=== PATIENT | female | born 1940 | race Caucasian/White ===

== ENCOUNTER 2020-11-08 13:08 | Outpatient (REF) | payer MEDICARE, SELFPAY ==
[2020-11-08 14:23] LABS: Hematocrit 38.9 % (37-47); Hemoglobin 12.4 g/dl (12.0-16.0); Mean Corpuscular HGB Conc 31.9 g/dl (31.0-35.0); Mean Corpuscular Hemoglobin 26.6 pg (27.0-33.0); Mean Corpuscular Volume 83.3 fL (80-98); Mean Platelet Volume 10.3 fL (9.4-12.3); Platelet Count 264 X10*3/uL (160-400); Red Blood Count 4.67 X10*6/uL (4.20-5.50); Red Cell Distribution Width 13.6 % (11.0-16.0); White Blood Count 5.7 X10*3/uL (4.8-10.8)
[2020-11-08 14:44] LABS: Alanine Aminotransferase 8 U/L (0-31); Albumin Level 4.3 g/dL (3.5-5.0); Alkaline Phosphatase 67 U/L (39-117); Anion Gap 11 (12-20); Aspartate Amino Transferase 16 U/L (5-31); Bilirubin Total 0.7 mg/dL (0.0-1.0); Blood Urea Nitrogen 18 mg/dL (9-16); Calcium 10.4 mg/dL (8.4-10.2); Carbon Dioxide 28 mmol/L (22-29); Chloride 106 mmol/L (96-108); Cholesterol 244 mg/dL; Estimated Glomerular Filt Rate > 60; Glucose Fasting 88 mg/dL (60-99); HDL Cholesterol 51 mg/dL; Iron 66 mcg/dL (30-160); LDL Cholesterol Calculated 168 mg/dl; Percent Iron Saturation 22 % (15-50); Potassium 4.2 mmol/L (3.3-5.1); Sodium 141 mmol/L (135-145); Total Iron Binding Capacity 295 mcg/dL (228-428); Total Protein 7.2 g/dL (6.5-8.0); Triglycerides 129 mg/dL; Unsaturated Iron Binding 229 ug/dL
[2020-11-08 14:47] LABS: TSH reflex Free T4 1.12 uIU/mL (0.32-4.0)
[2020-11-08 15:04] LABS: Folate 8.7 ng/mL (> or = 4.0); Vitamin B12 462 pg/mL (200-900)
== END 2020-11-08 13:09 | disposition home or self-care (01) ==
LOC: HO.HMGCLDS 13:08
PROVIDERS: PCP Internal Medicine; Visit Provider Internal Medicine
DX: E55.9 Vitamin D deficiency, unspecified (principal); E78.5 Hyperlipidemia, unspecified; I10 Essential (primary) hypertension
CPT/HCPCS: 36415; 80053; 80061; 82607; 82746; 83540; 84443; 85027

== ENCOUNTER 2021-08-07 11:04 | Outpatient (REF) | payer MEDICARE, OTHER, SELFPAY ==
[2021-08-07 13:45] LABS: Hematocrit 36.3 % (37.0-47.0); Hemoglobin 11.4 g/dl (12.0-16.0); Mean Corpuscular HGB Conc 31.4 g/dl (31.0-35.0); Mean Corpuscular Hemoglobin 26.6 pg (27.0-33.0); Mean Corpuscular Volume 84.6 fL (80.0-98.0); Mean Platelet Volume 10.2 fL (9.4-12.3); Platelet Count 254 X10*3/uL (160-400); Red Blood Count 4.29 X10*6/uL (4.20-5.50); Red Cell Distribution Width 13.7 % (11.0-16.0); White Blood Count 5.1 X10*3/uL (4.8-10.8)
[2021-08-07 14:06] LABS: Alanine Aminotransferase 8 U/L (0-31); Albumin Level 4.1 g/dL (3.5-5.0); Alkaline Phosphatase 70 U/L (39-117); Anion Gap 10 (12-20); Aspartate Amino Transferase 17 U/L (5-31); Bilirubin Total 0.7 mg/dL (0.0-1.0); Blood Urea Nitrogen 16 mg/dL (9-16); Calcium 10.3 mg/dL (8.4-10.2); Carbon Dioxide 30 mmol/L (22-29); Chloride 107 mmol/L (96-108); Estimated Glomerular Filt Rate > 60; Glucose Random 95 mg/dL (60-115); Potassium 4.1 mmol/L (3.3-5.1); Sodium 143 mmol/L (135-145); Total Protein 7.1 g/dL (6.5-8.0)
== END 2021-08-07 11:05 | disposition home or self-care (01) ==
LOC: HO.HMGCLDS 11:04
PROVIDERS: PCP Internal Medicine; Visit Provider Internal Medicine
DX: Z00.00 Encounter for general adult medical examination without abnormal findings (principal); I10 Essential (primary) hypertension; E55.9 Vitamin D deficiency, unspecified
CPT/HCPCS: 36415; 80053; 84443; 85027

== ENCOUNTER 2022-03-03 14:23 | Emergency (ER) | payer MEDICARE, OTHER, SELFPAY ==
[2022-03-03 14:28] VITALS: BP 152/67; PULSE 70; RESP 17; TEMP 36.4; O2SAT 95; BMI 21.5
--- NOTE | 2022-03-03 15:05 | ED_ITS ---
HPI - Skin/Abscess/Foreign Bdy General Chief complaint: Skin/Abscess/Foreign Body Stated complaint: Rash? Time Seen by Provider: 03/03/22 14:47 Source: patient Mode of arrival: ambulatory Limitations: no limitations History of Present Illness HPI narrative: Patient presents emergency department today for evaluation of a rash to the right lower trunk front and back. She 1st noticed it this morning it is described as painful, itchy, and a burning sensation. She took Tylenol about 1 hour prior to arrival with minimal relief. She states that overall she has been feeling well until noticing this today. She does report having varicella infection as a child, declines having received the shingles vaccine. Related Data Home Medications Medication Instructions Recorded Confirmed cholecalciferol (vitamin D3) 25 25 mcg PO DAILY 11/08/20 08/07/21 mcg (1,000 unit) capsule omeprazole 20 mg capsule,delayed 20 mg PO DAILY 11/08/20 08/07/21 release Previous Rx's Medication Instructions Recorded citalopram 10 mg tablet 10 mg PO DAILY #90 tabs 01/17/21 amlodipine 5 mg tablet 5 mg PO DAILY #90 tabs 08/07/21 memantine 10 mg tablet (Namenda) 10 mg PO QPM #90 tabs 08/07/21 lisinopril 30 mg tablet 30 mg PO DAILY #90 tabs 01/11/22 valacyclovir 1 gram tablet 1,000 mg PO TID 7 days #21 tabs 03/03/22 Allergies Allergy/AdvReac Type Severity Reaction Status Date / Time penicillin G [PENICILLIN G] Allergy Unknown ITCHING Verified 08/07/21 10:18 penicillin V Allergy Unknown itching Verified 08/07/21 10:18 smoke Allergy Unknown sick to Uncoded 08/07/21 10:18 her stomach Review of Systems Review of Systems: Constitutional: No weight loss, fever, chills, weakness or fatigue. Skin: Positive rash Cardiovascular: No chest pain, chest pressure or chest discomfort. No palpitations Respiratory: No shortness of breath, cough or sputum production. Gastrointestinal: No nausea, vomiting or diarrhea. No abdominal pain Genitourinary: No burning micturition. No urinary frequency or incontinence. Musculoskeletal: No muscle pain, back pain, joint pain or stiffness. Psychiatric: No depression or anxiety. Yes all other systems are reviewed and are negative PMFSH Past Medical History Attestation statement: The following information was validated with the patient. Source: old records reviewed Medical History Annual physical exam Anxiety Dementia GERD (gastroesophageal reflux disease) History of depression HTN (hypertension) Hyperlipidemia Near syncope Osteopenia Vitamin D deficiency Family History Family History Mother Abusive behavior Social History Social History Housing: House Patient Tobacco Use Status: Former Tobacco user e-Cigarette/Vaping Use: Never Used Advance Directives: No Advance Directives Information Provided: No Current occupational status: retired Physical Exam Vital Signs: Vital Signs: Last Vital Signs Temp 97.5 F 03/03/22 14:28 Pulse 70 03/03/22 14:28 Resp 17 03/03/22 14:28 BP 152/67 H 03/03/22 14:28 Pulse Ox 95 03/03/22 14:28 O2 Del Method 03/03/22 14:28 BMI result Body Mass Index 21.5 Appearance: Alert.?Oriented to person, place and time. No acute distress.?Normal affect. Eyes: Pupils equal, round and reactive to light.? ENT: Pharynx normal.?? Neck: Normal inspection.? Neck supple.?? CVS: Heart sounds normal. Normal heart rate and rhythm.? Pulses normal.?? Respiratory: No respiratory distress.? Lung sounds clear to auscultation bilaterally?? Abdomen: Soft and non-tender. ? Skin: Skin warm and dry.? Normal skin color.? Vesicular rash on an erythematous base to right lower torso along dermatome? T11-T12 Extremities: No lower extremity edema.? Neuro: Moves all extremities spontaneously. Sensation intact bilaterally. No motor deficits Ambulates with normal steady gait. Course Course Course Narrative: Patient is an 81-year-old female who presents emergency department for evaluation of a rash to the right lower torso extending from the right lower quadrant into the right lower back, early vesicular eruption on erythematous base following single dermatome. Most consistent with herpes zoster. Advised to avoid contact with children who have not been vaccinated for varicella, women, or mother's. Reviewed potential for post herpetic neuralgia Given a prescription for valacyclovir. Instructed on appropriate use, side effects, outpatient follow-up with her primary care provider within 1 week, advised to discuss zoster vaccination with her primary care provider, discussed worrisome signs and symptoms to return back to the emergency department for. All questions were answered, and she was discharged home in stable condition. Discharge Plan Discharge Clinical Impression: Herpes zoster Patient Disposition: Home, Self-Care Instructions: Shingles (ED) Additional Instructions: The rash that you have appears consistent with shingles, you have been given a prescription for an antiviral to take 3 times a day for 1 week. Please be sure to drink 8 glasses of water daily to prevent any headaches that may be a ssociated with this medication. You may also developed nausea or diarrhea due to the medication. If you developed the same rash on the left side of your body or notice the rash up higher or lower on the right side of your body such as on your leg or your chest/arm you should be re-evaluated. Please contact your primary care provider to arrange for a follow-up visit within 1 week. Return to the emergency department with any new or worsening symptoms or concerns Prescriptions: New valacyclovir 1 gram tablet 1,000 mg PO TID 7 Days Qty: 21 0RF No Action citalopram 10 mg tablet 10 mg PO DAILY Qty: 90 3RF lisinopril 30 mg tablet 30 mg PO DAILY Qty: 90 3RF cholecalciferol (vitamin D3) 25 mcg (1,000 unit) capsule 25 mcg PO DAILY omeprazole 20 mg capsule,delayed release(DR/EC) 20 mg PO DAILY amlodipine 5 mg tablet 5 mg PO DAILY Qty: 90 1RF memantine [Namenda] 10 mg tablet 10 mg PO QPM Qty: 90 1RF Referrals: Eliane Mccracken MD [Primary Care Provider] -
== END 2022-03-03 15:16 | disposition home or self-care (01) ==
PROVIDERS: Emergency Provider Emergency Medicine; PCP Internal Medicine
DX: B02.9 Zoster without complications (principal); I10 Essential (primary) hypertension; E78.5 Hyperlipidemia, unspecified
CPT/HCPCS: 99283

== ENCOUNTER 2022-03-06 10:44 | Outpatient (REF) | payer MEDICARE, OTHER, SELFPAY ==
[2022-03-06 14:14] LABS: MANUAL DIFF FLAG NO
[2022-03-06 14:18] LABS: Basophils Absolute Auto 0.1 X10*3/uL (0.0-0.2); Basophils Percent Auto 0.9 % (0-2); Eosinophils Absolute Auto 0.2 X10*3/uL (0.0-0.4); Hematocrit 36.8 % (37.0-47.0); Hemoglobin 11.8 g/dl (12.0-16.0); Imm Gran Abs Auto 0.02 X10*3/uL (0.00-0.03); Imm Gran Pct Auto 0.4 % (0.0-0.4); Lymphocytes Absolute Auto 1.7 X10*3/uL (1.2-4.9); Lymphocytes Percent Auto 31.5 % (20-40); Mean Corpuscular HGB Conc 32.1 g/dl (31.0-35.0); Mean Corpuscular Hemoglobin 26.7 pg (27.0-33.0); Mean Corpuscular Volume 83.3 fL (80.0-98.0); Mean Platelet Volume 10.8 fL (9.4-12.3); Monocytes Absolute Auto 0.4 X10*3/uL (0.1-1.2); Monocytes Percent Auto 8.3 % (2-11); Neutrophils Absolute Auto 2.9 x10*3/uL (2.0-8.3); Neutrophils Percent Auto 54.9 % (45-73); Platelet Count 260 X10*3/uL (160-400); Red Blood Count 4.42 X10*6/uL (4.20-5.50); White Blood Count 5.3 X10*3/uL (4.8-10.8)
[2022-03-06 14:36] LABS: Alanine Aminotransferase 8 U/L (0-31); Albumin Level 4.4 g/dL (3.5-5.0); Alkaline Phosphatase 54 U/L (39-117); Anion Gap 12 (12-20); Aspartate Amino Transferase 14 U/L (5-31); Bilirubin Total 0.9 mg/dL (0.0-1.0); Blood Urea Nitrogen 15 mg/dL (9-16); Calcium 10.6 mg/dL (8.4-10.2); Carbon Dioxide 30 mmol/L (22-29); Chloride 106 mmol/L (96-108); Estimated Glomerular Filt Rate > 60; Glucose Random 82 mg/dL (60-115); Potassium 4.7 mmol/L (3.3-5.1); Sodium 143 mmol/L (135-145); Total Protein 7.2 g/dL (6.5-8.0)
[2022-03-06 14:55] LABS: TSH reflex Free T4 2.72 uIU/mL (0.32-4.0)
[2022-03-06 15:08] LABS: Folate 8.8 ng/mL (> or = 4.0); Vitamin B12 598 pg/mL (200-900)
== END 2022-03-06 10:45 | disposition home or self-care (01) ==
LOC: HO.HMGCLDS 10:44
PROVIDERS: PCP Internal Medicine; Visit Provider Internal Medicine
DX: F03.90 Unspecified dementia, unspecified severity, without behavioral disturbance, psychotic disturbance, mood disturbance, and anxiety (principal); F41.9 Anxiety disorder, unspecified; I10 Essential (primary) hypertension; E55.9 Vitamin D deficiency, unspecified
CPT/HCPCS: 36415; 80053; 82607; 82746; 84443; 85025

== ENCOUNTER 2022-05-30 13:26 | Emergency (ER) | payer MEDICARE, OTHER, SELFPAY ==
--- NOTE | ~2022-05-30 | CT_ITS ---
EXAMINATION: CT HEAD WITHOUT CONTRAST CLINICAL INFORMATION: Altered mental status. COMPARISON: None TECHNIQUE: Contiguous axial imaging was performed from the skull base to vertex without intravenous administration of contrast. Coronal and sagittal reformatted images were obtained. This CT examination was performed using dose optimization techniques as appropriate, variously including the following: *Automated exposure control *Adjustment of mA and/or kV according to patient size (this includes techniques or standardized protocols for targeted exams where dose is matched to indication/reason for exam; i.e. extremities or head) *Use of iterative reconstruction technique DLP: 552 mGy-cm FINDINGS: There is mild widening of the cortical sulci and associated ventriculomegaly. The lateral ventricles are symmetrical. Mild periventricular microvascular changes are seen. The third and fourth ventricles are in their normal midline position. The basilar and prepontine cisterns are unremarkable. There is no acute intra or extracerebral abnormality. There is no mass effect or midline shift. Sections through the bony calvarium are unremarkable. The orbits are intact. The paranasal sinuses are clear. The mastoid air cells are clear. CT/CT head/brain wo IV con IMPRESSION: No acute intracranial pathology.
--- NOTE | 2022-05-30 13:33 | ED.GENADULT ---
HPI - General Adult General Chief complaint: Neuro Symptoms/Deficit <JAI Valencia - Last Filed: 05/30/22 17:58> Stated complaint: AMS <JAI Valencia - Last Filed: 05/30/22 17:58> Time Seen by Provider: 05/30/22 13:33 <JAI Valencia - Last Filed: 05/30/22 17:58> Source: patient and EMS <JAI Valencia - Last Filed: 05/30/22 17:58> Mode of arrival: EMS <JAI Valencia - Last Filed: 05/30/22 17:58> Limitations: altered mental status <JAI Valencia - Last Filed: 05/30/22 17:58> History of Present Illness HPI narrative: Pt is an 82 yo female assigned at presenting w/ a 2 month hx of AMS. She reports that her manager social services, Nikkie Saucedo, visited her today and instructed her to report to the emergency department. She states that her manager social services was concerned because she has had worsening confusing. She reports that she is not sure if her manager social services had any specific, new concerns today. She states that she is feeling bad, reporting that she just generally doesn't feel well. She denies any recent hx of trauma or falls. She states that she is unsure what her medical history is significant for. She reports that she lives alone in her home and gets visits from the manager social services once a month. <JAI Valencia - Last Filed: 05/30/22 17:58> Onset (ago): month(s) (2) <JAI Valencia - Last Filed: 05/30/22 17:58> Radiation: non-radiation <JAI Valencia - Last Filed: 05/30/22 17:58> Severity: mild <JAI Valencia - Last Filed: 05/30/22 17:58> Severity scale (1-10): 1 <JAI Valencia - Last Filed: 05/30/22 17:58> Relieving factors: none <JAI Valencia - Last Filed: 05/30/22 17:58> Exacerbating factors: none <JAI Valencia - Last Filed: 05/30/22 17:58> Treatments prior to arrival: none <JAI Valencia Last Filed: 05/30/22 17:58> Related Data Home medications: Home Medications Medication Instructions Recorded Confirmed amlodipine 5 mg tablet 1 tab PO DAILY 05/30/22 05/30/22 citalopram 10 mg tablet 1 tab PO DAILY 05/30/22 05/30/22 memantine 10 mg tablet 1 tab PO QPM 05/30/22 05/30/22 <JAI Valencia - Last Filed: 05/30/22 17:58> Allergies/adverse reactions: Allergies Allergy/AdvReac Type Severity Reaction Status Date / Time penicillin G [PENICILLIN G] Allergy Unknown ITCHING Verified 03/06/22 10:07 penicillin V Allergy Unknown itching Verified 03/06/22 10:07 smoke Allergy Unknown sick to Uncoded 03/06/22 10:07 her stomach <JAI Valencia Last Filed: 05/30/22 17:58> Review of Systems Review of Systems: Yes Unobtainable due to mental status (pt is confused at baseline) <JAI Valencia Last Filed: 05/30/22 17:58> Constitutional: Constitutional: Reports fever(s) (intermittently) and Reports malaise <JAI Valencia Last Filed: 05/30/22 17:58> Eyes: Eyes: Denies change in vision and Denies loss of vision <JAI Valencia Last Filed: 05/30/22 17:58> ENT: Reports Normal hearing present and Denies dizziness <JAI Valencia Last Filed: 05/30/22 17:58> Cardiovascular: Cardiovascular: Reports chest pain (intermittently), Denies leg edema and Denies lightheadedness <JAI Valencia Last Filed: 05/30/22 17:58> Respiratory: Respiratory: Reports cough (intermittent) <JAI Valencia Last Filed: 05/30/22 17:58> Gastrointestinal: Gastrointestinal: Reports abdominal pain (intermittent) <JAI Valencia Last Filed: 05/30/22 17:58> Genitourinary: Genitourinary: Reports difficulty voiding (occasional burning on urination) <JAI Valencia Last Filed: 05/30/22 17:58> Musculoskeletal: Musculoskeletal: Reports no additional musculoskeletal complaints <JAI Valencia - Last Filed: 05/30/22 17:58> Neurologic: Reports Normal hearing present, Reports Abnormal speech present, Reports confusion (per her baseline), Denies dizziness and Denies loss of vision <JAI Valencia - Last Filed: 05/30/22 17:58> Psychiatric: Psychiatric: Reports anxiety and Reports confusion (per her baseline) <JAI Valencia - Last Filed: 05/30/22 17:58> [facility], [facility] Past Medical History Attestation statement: The following information was validated with the patient. <JAI Valencia - Last Filed: 05/30/22 17:58> Medical History: Medical History Annual physical exam Anxiety Dementia GERD (gastroesophageal reflux disease) History of depression HTN (hypertension) Hyperlipidemia Near syncope Osteopenia Vitamin D deficiency <JAI Valencia - Last Filed: 05/30/22 17:58> Family History Family History: Family History Mother Abusive behavior <JAI Valencia - Last Filed: 05/30/22 17:58> Social History Social History: Social History Housing: House Alcohol intake: unknown Patient Tobacco Use Status: Former Tobacco user Smoked in Last 30 Days: No e-Cigarette/Vaping Use: Never Used Use of substances other than those prescribed or required for medical reasons: Unknown Advance Directives: No Current occupational status: retired Cognitive needs: No Hearing needs: No Vision needs: Yes <JAI Valencia - Last Filed: 05/30/22 17:58> Physical Exam ED Vital Signs: Vital Signs - 24 hr 06/09/22 20:17 06/10/22 05:11 Temperature 98.1 F 98.0 F Pulse Rate 67 75 Respiratory Rate 18 15 Blood Pressure 118/50 L 140/79 H Pulse Oximetry 99 99 Oxygen Delivery Method Room Air Room Air BMI result Body Mass Index 23.5 <JAI Valencia - Last Filed: 05/30/22 17:58> Vital Signs - 24 hr 06/09/22 20:17 06/10/22 05:11 Temperature 98.1 F 98.0 F Pulse Rate 67 75 Respiratory Rate 18 15 Blood Pressure 118/50 L 140/79 H Pulse Oximetry 99 99 Oxygen Delivery Method Room Air Room Air BMI result Body Mass Index 23.5 <Jorge Luis Ahn MD - Last Filed: 06/04/22 09:43> Vital Signs - 24 hr 06/09/22 20:17 06/10/22 05:11 Temperature 98.1 F 98.0 F Pulse Rate 67 75 Respiratory Rate 18 15 Blood Pressure 118/50 L 140/79 H Pulse Oximetry 99 99 Oxygen Delivery Method Room Air Room Air BMI result Body Mass Index 23.5 <Vikram Oshea MD - Last Filed: 06/01/22 16:48> Vital Signs - 24 hr 06/09/22 20:17 06/10/22 05:11 Temperature 98.1 F 98.0 F Pulse Rate 67 75 Respiratory Rate 18 15 Blood Pressure 118/50 L 140/79 H Pulse Oximetry 99 99 Oxygen Delivery Method Room Air Room Air BMI result Body Mass Index 23.5 <Yaihr Neely MD - Last Filed: 06/03/22 16:05> Vital Signs - 24 hr 06/09/22 20:17 06/10/22 05:11 Temperature 98.1 F 98.0 F Pulse Rate 67 75 Respiratory Rate 18 15 Blood Pressure 118/50 L 140/79 H Pulse Oximetry 99 99 Oxygen Delivery Method Room Air Room Air BMI result Body Mass Index 23.5 <Logan John MD - Last Filed: 06/05/22 10:21> Vital Signs - 24 hr 06/09/22 20:17 06/10/22 05:11 Temperature 98.1 F 98.0 F Pulse Rate 67 75 Respiratory Rate 18 15 Blood Pressure 118/50 L 140/79 H Pulse Oximetry 99 99 Oxygen Delivery Method Room Air Room Air BMI result Body Mass Index 23.5 <Naveed Hughes DO - Last Filed: 06/06/22 10:20> Const General: cooperative, healthy appearing and confusion (per her baseline) <JAI Valencia - Last Filed: 05/30/22 17:58> Nutritional Appearance: well nourished <JAI Valencia - Last Filed: 05/30/22 17:58> Orientation/consciousness: oriented to person, oriented to place and confusion (per her baseline) <Pham Sanderson SD - Last Filed: 05/30/22 17:58> Limitations: altered mental status <Pham Sanderson SD - Last Filed: 05/30/22 17:58> HENMT Head: Yes normal to inspection, Yes normocephalic and Yes atraumatic <Pham Sanderson SD - Last Filed: 05/30/22 17:58> Ears: hearing grossly normal bilaterally <Pham Sanderson SD - Last Filed: 05/30/22 17:58> General nose exam: Normal external nose present <Pham Calhounjeremi [facility] Last Filed: 05/30/22 17:58> Mouth: Normal oral and palatal mucosa present <Pham Sanderson SD - Last Filed: 05/30/22 17:58> Throat: Yes posterior oropharynx normal <Pham Calhounjeremi SD - Last Filed: 05/30/22 17:58> Eyes General: appearance normal, both eyes and all related structures <Pham Sanderson SD - Last Filed: 05/30/22 17:58> Conjunctivae: conjunctivae normal <Pham Calhounjeremi SD - Last Filed: 05/30/22 17:58> Pupils: Equal, round and reactive pupils present <Pham Sanderson SD - Last Filed: 05/30/22 17:58> EOM: EOMs intact bilaterally <Pham Calhounjeremi SD - Last Filed: 05/30/22 17:58> Neck Neck: Yes normal visual inspection <Pham Calhounjeremi [facility] Last Filed: 05/30/22 17:58> Thyroid: Thyroid normal <Pham Calhounjeremi [facility] Last Filed: 05/30/22 17:58> Lymphatic: no lymphadenopathy noted <Pham Calhounjeremi SD - Last Filed: 05/30/22 17:58> Chest Chest palpation & inspection: normal inspection of the chest <Pham Calhounjeremi [facility] Last Filed: 05/30/22 17:58> Resp Effort & Inspection: normal respiratory effort and able to speak in complete sentences <Pham Maria E SD - Last Filed: 05/30/22 17:58> Auscultation: clear to auscultation bilaterally <Pham Sanderson SD - Last Filed: 05/30/22 17:58> Cardio Jugular venous distension: no JVD <Pham Sanderson SD - Last Filed: 05/30/22 17:58> Rate: regular rate <Pham Sanderson SD - Last Filed: 05/30/22 17:58> Rhythm: regular rhythm <Pham Sanderson SD - Last Filed: 05/30/22 17:58> Heart sounds: S1 normal heart sound present and S2 normal heart sound present <Pham Sanderson SD - Last Filed: 05/30/22 17:58> Peripheral pulses: Peripheral pulses 2+ throughout <Pham Sanderson SD - Last Filed: 05/30/22 17:58> GI Inspection: Yes normal to inspection <Pham Sanderson SD - Last Filed: 05/30/22 17:58> Palpation (GI): Soft to palpation, not firm, nontender, no guarding and not rigid <Pham Sanderson SD - Last Filed: 05/30/22 17:58> Skin Lesions: lesion noted (multiple, erythematous papules spread across bilat upper extremities) <Pham Sanderson SD - Last Filed: 05/30/22 17:58> Neuro General: oriented to person, oriented to place and confusion (per her baseline) <Pham Sanderson SD - Last Filed: 05/30/22 17:58> Cranial nerves: Yes Equal, round and reactive pupils present and Yes Normal hearing present <Pham SandersonJAI - Last Filed: 05/30/22 17:58> Speech: Abnormal speech present <Pham Sanderson SD - Last Filed: 05/30/22 17:58> Motor exam (neuro): 5/5 motor strength present throughout <Pham Sanderson SD - Last Filed: 05/30/22 17:58> Psych Appearance: disheveled <Pham SandersonJAI - Last Filed: 05/30/22 17:58> Mental Status: mental status grossly normal <Pham SandersonJAI - Last Filed: 05/30/22 17:58> Speech and movement: Normal speech and movement present <Pham CalhounJAI blood - Last Filed: 05/30/22 17:58> Affect: normal affect <JAI Valencia - Last Filed: 05/30/22 17:58> Attitude: cooperative <JAI Valencia - Last Filed: 05/30/22 17:58> Thought process: Normal thought process present <JAI Valencia - Last Filed: 05/30/22 17:58> Course Course Course Narrative: PATIENT REMAINED STABLE ON SHE IS HERE FOR CASE MANAGEMENT, NO NEW COMPLAINT, PHYSICIAN OBSERVATION CONTINUE <oLgan John MD - Last Filed: 06/05/22 10:21> PATIENT REMAINED STABLE ON SHE IS HERE FOR CASE MANAGEMENT, NO NEW COMPLAINT, PHYSICIAN OBSERVATION CONTINUE 06/06/22 1019 Patient remains case managment stable will continue physician observation <Naveed Hughes DO - Last Filed: 06/06/22 10:20> Reevaluation(s) Reevaluation #1: Physician observation for safety, case management involved as is physical therapy, Uneventful night will continue to monitor for safety. <Jorge Luis Ahn MD - Last Filed: 06/04/22 09:43> Time: 07:19 <Jorge Luis Ahn MD - Last Filed: 06/04/22 09:43> Reevaluation #2: Physician observation continued: There were no reported incidents on this patient overnight by the nursing staff. Patient has been evaluated by case management and physical therapy.. Patient will be kept in emergency department [facility] until disposition can be determined. <Vikram Oshea MD - Last Filed: 06/01/22 16:48> Time: 16:47 <Vikram Oshea MD - Last Filed: 06/01/22 16:48> Reevaluation #3: No events overnight reported by the nurse, stable vital signs, waiting for manager social services evaluation and disposition, continue with physician observation. <Yahir Neely MD - Last Filed: 06/03/22 16:05> Time: 08:14 <Yahir Neely MD - Last Filed: 06/03/22 16:05> Medications Administered Generic Name Dose Route Start Last Admin Trade Name Freq PRN Reason Stop Dose Admin Amlodipine Besylate 5 mg 05/31/22 09:00 06/10/22 08:13 Amlodipine Besylate 5 Mg Tablet PO 5 mg DAILY EN Administration Protocol Escitalopram Oxalate 5 mg 05/31/22 09:00 06/10/22 08:13 Escitalopram Oxalate 5 Mg Tablet PO 5 mg DAILY EN Administration Memantine 10 mg 05/31/22 21:00 06/09/22 20:06 Memantine Hcl 10 Mg Tablet PO 10 mg BEDTIME EN Administration <JAI Valencia - Last Filed: 05/30/22 17:58> Medications Administered Generic Name Dose Route Start Last Admin Trade Name Freq PRN Reason Stop Dose Admin Amlodipine Besylate 5 mg 05/31/22 09:00 06/10/22 08:13 Amlodipine Besylate 5 Mg Tablet PO 5 mg DAILY EN Administration Protocol Escitalopram Oxalate 5 mg 05/31/22 09:00 06/10/22 08:13 Escitalopram Oxalate 5 Mg Tablet PO 5 mg DAILY EN Administration Memantine 10 mg 05/31/22 21:00 06/09/22 20:06 Memantine Hcl 10 Mg Tablet PO 10 mg BEDTIME EN Administration <Jorge Luis Ahn MD - Last Filed: 06/04/22 09:43> Medications Administered Generic Name Dose Route Start Last Admin Trade Name Freq PRN Reason Stop Dose Admin Amlodipine Besylate 5 mg 05/31/22 09:00 06/10/22 08:13 Amlodipine Besylate 5 Mg Tablet PO 5 mg DAILY EN Administration Protocol Escitalopram Oxalate 5 mg 05/31/22 09:00 06/10/22 08:13 Escitalopram Oxalate 5 Mg Tablet PO 5 mg DAILY EN Administration Memantine 10 mg 05/31/22 21:00 06/09/22 20:06 Memantine Hcl 10 Mg Tablet PO 10 mg BEDTIME EN Administration <Vikram Oshea MD - Last Filed: 06/01/22 16:48> Medications Administered Generic Name Dose Route Start Last Admin Trade Name Freq PRN Reason Stop Dose Admin Amlodipine Besylate 5 mg 05/31/22 09:00 06/10/22 08:13 Amlodipine Besylate 5 Mg Tablet PO 5 mg DAILY EN Administration Protocol Escitalopram Oxalate 5 mg 05/31/22 09:00 06/10/22 08:13 Escitalopram Oxalate 5 Mg Tablet PO 5 mg DAILY EN Administration Memantine 10 mg 05/31/22 21:00 06/09/22 20:06 Memantine Hcl 10 Mg Tablet PO 10 mg BEDTIME EN Administration <Yahir Neely MD - Last Filed: 06/03/22 16:05> Medications Administered Generic Name Dose Route Start Last Admin Trade Name Freq PRN Reason Stop Dose Admin Amlodipine Besylate 5 mg 05/31/22 09:00 06/10/22 08:13 Amlodipine Besylate 5 Mg Tablet PO 5 mg DAILY EN Administration Protocol Escitalopram Oxalate 5 mg 05/31/22 09:00 06/10/22 08:13 Escitalopram Oxalate 5 Mg Tablet PO 5 mg DAILY EN Administration Memantine 10 mg 05/31/22 21:00 06/09/22 20:06 Memantine Hcl 10 Mg Tablet PO 10 mg BEDTIME EN Administration <Logna John MD - Last Filed: 06/05/22 10:21> Medications Administered Generic Name Dose Route Start Last Admin Trade Name Freq PRN Reason Stop Dose Admin Amlodipine Besylate 5 mg 05/31/22 09:00 06/10/22 08:13 Amlodipine Besylate 5 Mg Tablet PO 5 mg DAILY EN Administration Protocol Escitalopram Oxalate 5 mg 05/31/22 09:00 06/10/22 08:13 Escitalopram Oxalate 5 Mg Tablet PO 5 mg DAILY EN Administration Memantine 10 mg 05/31/22 21:00 06/09/22 20:06 Memantine Hcl 10 Mg Tablet PO 10 mg BEDTIME EN Administration <Naveed Hughes DO - Last Filed: 06/06/22 10:20> Medical Decision Making MDM Narrative Medical decision making narrative: Patient is an 82 year old assigned female at with a history of dementia presenting to the emergency department today with worsening confusion. Patient's physical exam showed a pleasantly confused individual with multiple small bites concerning for bed bug infestation. Patient's blood work was unremarkable. Patient's urine is pending. Patient's EKG was unremarkable. Patient's head CT showed no acute process. Case management tracked down the patient's manager social services who turned out to only be a friend and not her manager social services. She expressed concern about the patient living alone as her dementia is advancing and she is partaking in dangerous behavior such as driving and leaving the stove on. Patient to be managed by case management for possible placement. <JAI Valencia - Last Filed: 05/30/22 17:58> Medical Records Medical records reviewed: Yes I reviewed the patient's medical records. <JAI Valencia Last Filed: 05/30/22 17:58> Lab Data Lab results reviewed: Yes I reviewed the patient's lab results. <JAI Valencia - Last Filed: 05/30/22 17:58> Result diagrams: : 05/30/22 14:22 05/30/22 14:22 <JAI Valencia - Last Filed: 05/30/22 17:58> Labs: Lab Results 05/30/22 05/30/22 05/30/22 Range/Units 14:22 14:22 14:22 WBC 7.9 (4.8-10.8) X10*3/uL RBC 4.36 (4.20-5.50) X10*6/uL Hgb 11.6 L (12.0-16.0) g/dl Hct 36.0 L (37.0-47.0) % MCV 82.6 (80.0-98.0) fL MCH 26.6 L (27.0-33.0) pg MCHC 32.2 (31.0-35.0) g/dl RDW 13.3 (11.0-16.0) % Plt Count 249 (160-400) X10*3/uL MPV 9.7 (9.4-12.3) fL Immature Gran % (Auto) 0.4 (0.0-0.4) % Neut % (Auto) 62.2 (45-73) % Lymph % (Auto) 25.7 (20-40) % [place] % (Auto) 6.9 (2-11) % Eos % (Auto) 3.9 (0-4) % Baso % (Auto) 0.9 (0-2) % Lymph # (Auto) 2.0 (1.2-4.9) X10*3/uL [place] # (Auto) 0.5 (0.1-1.2) X10*3/uL Eos # (Auto) 0.3 (0.0-0.4) X10*3/uL Baso # (Auto) 0.1 (0.0-0.2) X10*3/uL Abs Immat Gran (auto) 0.03 (0.00-0.03) X10*3/uL Absolute Neuts (auto) 4.9 (2.0-8.3) x10*3/uL Absolute Nucleated RBC 0.000 (0.0-0.012) X10*3/uL Nucleated RBC % (auto) 0.0 (0.0-0.2) /100WBC Sodium 143 (135-145) mmol/L Potassium 4.1 (3.3-5.1) mmol/L Chloride 106 (96-108) mmol/L Carbon Dioxide 27 (22-29) mmol/L Anion Gap 14 (12-20) BUN 16 (9-16) mg/dL Creatinine 0.91 (0.5-1.4) mg/dL Estim Creat Clear Calc 39.4 Estimated GFR 59 Random Glucose 95 (60-115) mg/dL Calcium 10.4 H (8.4-10.2) mg/dL Total Bilirubin 0.7 (0.0-1.0) mg/dL AST 18 (5-31) U/L ALT 11 (0-31) U/L Alkaline Phosphatase 89 D (39-117) U/L Ammonia 21 (13-55) umol/L Total Protein 7.0 (6.5-8.0) g/dL Albumin 4.2 (3.5-5.0) g/dL 1,25 Dihydroxy Vit D (18-72) pg/mL 1,25 Dihydroxy Vit D2 pg/mL 1,25 Dihydroxy Vit D3 pg/mL PTH Intact (16-77) pg/mL Calcium (PTH Intact) (8.6-10.4) mg/dL Urine Color Urine Appearance Urine pH (5.0-9.0) Ur Specific [place] (1.005-1.025) Urine Protein (Neg-Trace) mg/dL Urine Glucose (UA) (Negative) mg/dL Urine Ketones (Negative) mg/dL Urine Blood (Negative) Urine Nitrite (Negative) Ur Leukocyte Esterase (Negative) Urine RBC (0-2) /HPF Urine WBC (0-5) /HPF Ur Squamous Epith Cells (0-2) /HPF Urine Bacteria (None Seen) Hyaline Casts (0-2) /LPF Urine Opiates Screen (Not Detect) Urine Fentanyl Screen (Not Detect) Ur Barbiturates Screen (Not Detect) Ur Phencyclidine Scrn (Not Detect) Ur Amphetamines Screen (Not Detect) U Benzodiazepines Scrn (Not Detect) Urine Cocaine Screen (Not Detect) U Marijuana (THC) Screen (Not Detect) Influenza Type A (PCR) (Negative) Influenza Type B (PCR) (Negative) RSV RNA Qual (PCR) (Negative) SARS-CoV-2 RNA (RT-PCR) (Negative) 05/30/22 05/31/22 05/31/22 Range/Units 15:36 07:13 07:13 WBC (4.8-10.8) X10*3/uL RBC (4.20-5.50) X10*6/uL Hgb (12.0-16.0) g/dl Hct (37.0-47.0) % MCV (80.0-98.0) fL MCH (27.0-33.0) pg MCHC (31.0-35.0) g/dl RDW (11.0-16.0) % Plt Count (160-400) X10*3/uL MPV (9.4-12.3) fL Immature Gran % (Auto) (0.0-0.4) % Neut % (Auto) (45-73) % Lymph % (Auto) (20-40) % [place] % (Auto) (2-11) % Eos % (Auto) (0-4) % Baso % (Auto) (0-2) % Lymph # (Auto) (1.2-4.9) X10*3/uL [place] # (Auto) (0.1-1.2) X10*3/uL Eos # (Auto) (0.0-0.4) X10*3/uL Baso # (Auto) (0.0-0.2) X10*3/uL Abs Immat Gran (auto) (0.00-0.03) X10*3/uL Absolute Neuts (auto) (2.0-8.3) x10*3/uL Absolute Nucleated RBC (0.0-0.012) X10*3/uL Nucleated RBC % (auto) (0.0-0.2) /100WBC Sodium (135-145) mmol/L Potassium (3.3-5.1) mmol/L Chloride (96-108) mmol/L Carbon Dioxide (22-29) mmol/L Anion Gap (12-20) BUN (9-16) mg/dL Creatinine (0.5-1.4) mg/dL Estim Creat Clear Calc Estimated GFR Random Glucose (60-115) mg/dL Calcium (8.4-10.2) mg/dL Total Bilirubin (0.0-1.0) mg/dL AST (5-31) U/L ALT (0-31) U/L Alkaline Phosphatase (39-117) U/L Ammonia (13-55) umol/L Total Protein (6.5-8.0) g/dL Albumin (3.5-5.0) g/dL 1,25 Dihydroxy Vit D (18-72) pg/mL 1,25 Dihydroxy Vit D2 pg/mL 1,25 Dihydroxy Vit D3 pg/mL PTH Intact (16-77) pg/mL Calcium (PTH Intact) (8.6-10.4) mg/dL Urine Color Yellow Urine Appearance Clear Urine pH 5.5 (5.0-9.0) Ur Specific [place] 1.025 (1.005-1.025) Urine Protein Negative (Neg-Trace) mg/dL Urine Glucose (UA) Negative (Negative) mg/dL Urine Ketones Trace (Negative) mg/dL Urine Blood Negative (Negative) Urine Nitrite Negative (Negative) Ur Leukocyte Esterase Trace H (Negative) Urine RBC 3-5 H (0-2) /HPF Urine WBC 0-5 (0-5) /HPF Ur Squamous Epith Cells 0-2 (0-2) /HPF Urine Bacteria 1+ (None Seen) Hyaline Casts 0-2 (0-2) /LPF Urine Opiates Screen Not Detected (Not Detect) Urine Fentanyl Screen Not Detected (Not Detect) Ur Barbiturates Screen Not Detected (Not Detect) Ur Phencyclidine Scrn Not Detected (Not Detect) Ur Amphetamines Screen Not Detected (Not Detect) U Benzodiazepines Scrn Not Detected (Not Detect) Urine Cocaine Screen Not Detected (Not Detect) U Marijuana (THC) Screen Not Detected (Not Detect) Influenza Type A (PCR) NEGATIVE (Negative) Influenza Type B (PCR) NEGATIVE (Negative) RSV RNA Qual (PCR) NEGATIVE (Negative) SARS-CoV-2 RNA (RT-PCR) NEGATIVE (Negative) 05/31/22 05/31/22 Range/Units 13:10 13:10 WBC (4.8-10.8) X10*3/uL RBC (4.20-5.50) X10*6/uL Hgb (12.0-16.0) g/dl Hct (37.0-47.0) % MCV (80.0-98.0) fL MCH (27.0-33.0) pg MCHC (31.0-35.0) g/dl RDW (11.0-16.0) % Plt Count (160-400) X10*3/uL MPV (9.4-12.3) fL Immature Gran % (Auto) (0.0-0.4) % Neut % (Auto) (45-73) % Lymph % (Auto) (20-40) % [place] % (Auto) (2-11) % Eos % (Auto) (0-4) % Baso % (Auto) (0-2) % Lymph # (Auto) (1.2-4.9) X10*3/uL [place] # (Auto) (0.1-1.2) X10*3/uL Eos # (Auto) (0.0-0.4) X10*3/uL Baso # (Auto) (0.0-0.2) X10*3/uL Abs Immat Gran (auto) (0.00-0.03) X10*3/uL Absolute Neuts (auto) (2.0-8.3) x10*3/uL Absolute Nucleated RBC (0.0-0.012) X10*3/uL Nucleated RBC % (auto) (0.0-0.2) /100WBC Sodium (135-145) mmol/L Potassium (3.3-5.1) mmol/L Chloride (96-108) mmol/L Carbon Dioxide (22-29) mmol/L Anion Gap (12-20) BUN (9-16) mg/dL Creatinine (0.5-1.4) mg/dL Estim Creat Clear Calc Estimated GFR Random Glucose (60-115) mg/dL Calcium (8.4-10.2) mg/dL Total Bilirubin (0.0-1.0) mg/dL AST (5-31) U/L ALT (0-31) U/L Alkaline Phosphatase (39-117) U/L Ammonia (13-55) umol/L Total Protein (6.5-8.0) g/dL Albumin (3.5-5.0) g/dL 1,25 Dihydroxy Vit D 70 (18-72) pg/mL 1,25 Dihydroxy Vit D2 <8 pg/mL 1,25 Dihydroxy Vit D3 70 pg/mL PTH Intact 87 H (16-77) pg/mL Calcium (PTH Intact) 10.6 H (8.6-10.4) mg/dL Urine Color Urine Appearance Urine pH (5.0-9.0) Ur Specific [place] (1.005-1.025) Urine Protein (Neg-Trace) mg/dL Urine Glucose (UA) (Negative) mg/dL Urine Ketones (Negative) mg/dL Urine Blood (Negative) Urine Nitrite (Negative) Ur Leukocyte Esterase (Negative) Urine RBC (0-2) /HPF Urine WBC (0-5) /HPF Ur Squamous Epith Cells (0-2) /HPF Urine Bacteria (None Seen) Hyaline Casts (0-2) /LPF Urine Opiates Screen (Not Detect) Urine Fentanyl Screen (Not Detect) Ur Barbiturates Screen (Not Detect) Ur Phencyclidine Scrn (Not Detect) Ur Amphetamines Screen (Not Detect) U Benzodiazepines Scrn (Not Detect) Urine Cocaine Screen (Not Detect) U Marijuana (THC) Screen (Not Detect) Influenza Type A (PCR) (Negative) Influenza Type B (PCR) (Negative) RSV RNA Qual (PCR) (Negative) SARS-CoV-2 RNA (RT-PCR) (Negative) <JAI Valencia - Last Filed: 05/30/22 17:58> Lab Results 05/30/22 05/30/22 05/30/22 Range/Units 14:22 14:22 14:22 WBC 7.9 (4.8-10.8) X10*3/uL RBC 4.36 (4.20-5.50) X10*6/uL Hgb 11.6 L (12.0-16.0) g/dl Hct 36.0 L (37.0-47.0) % MCV 82.6 (80.0-98.0) fL MCH 26.6 L (27.0-33.0) pg MCHC 32.2 (31.0-35.0) g/dl RDW 13.3 (11.0-16.0) % Plt Count 249 (160-400) X10*3/uL MPV 9.7 (9.4-12.3) fL Immature Gran % (Auto) 0.4 (0.0-0.4) % Neut % (Auto) 62.2 (45-73) % Lymph % (Auto) 25.7 (20-40) % [place] % (Auto) 6.9 (2-11) % Eos % (Auto) 3.9 (0-4) % Baso % (Auto) 0.9 (0-2) % Lymph # (Auto) 2.0 (1.2-4.9) X10*3/uL [place] # (Auto) 0.5 (0.1-1.2) X10*3/uL Eos # (Auto) 0.3 (0.0-0.4) X10*3/uL Baso # (Auto) 0.1 (0.0-0.2) X10*3/uL Abs Immat Gran (auto) 0.03 (0.00-0.03) X10*3/uL Absolute Neuts (auto) 4.9 (2.0-8.3) x10*3/uL Absolute Nucleated RBC 0.000 (0.0-0.012) X10*3/uL Nucleated RBC % (auto) 0.0 (0.0-0.2) /100WBC Sodium 143 (135-145) mmol/L Potassium 4.1 (3.3-5.1) mmol/L Chloride 106 (96-108) mmol/L Carbon Dioxide 27 (22-29) mmol/L Anion Gap 14 (12-20) BUN 16 (9-16) mg/dL Creatinine 0.91 (0.5-1.4) mg/dL Estim Creat Clear Calc 39.4 Estimated GFR 59 Random Glucose 95 (60-115) mg/dL Calcium 10.4 H (8.4-10.2) mg/dL Total Bilirubin 0.7 (0.0-1.0) mg/dL AST 18 (5-31) U/L ALT 11 (0-31) U/L Alkaline Phosphatase 89 D (39-117) U/L Ammonia 21 (13-55) umol/L Total Protein 7.0 (6.5-8.0) g/dL Albumin 4.2 (3.5-5.0) g/dL 1,25 Dihydroxy Vit D (18-72) pg/mL 1,25 Dihydroxy Vit D2 pg/mL 1,25 Dihydroxy Vit D3 pg/mL PTH Intact (16-77) pg/mL Calcium (PTH Intact) (8.6-10.4) mg/dL Urine Color Urine Appearance Urine pH (5.0-9.0) Ur Specific [place] (1.005-1.025) Urine Protein (Neg-Trace) mg/dL Urine Glucose (UA) (Negative) mg/dL Urine Ketones (Negative) mg/dL Urine Blood (Negative) Urine Nitrite (Negative) Ur Leukocyte Esterase (Negative) Urine RBC (0-2) /HPF Urine WBC (0-5) /HPF Ur Squamous Epith Cells (0-2) /HPF Urine Bacteria (None Seen) Hyaline Casts (0-2) /LPF Urine Opiates Screen (Not Detect) Urine Fentanyl Screen (Not Detect) Ur Barbiturates Screen (Not Detect) Ur Phencyclidine Scrn (Not Detect) Ur Amphetamines Screen (Not Detect) U Benzodiazepines Scrn (Not Detect) Urine Cocaine Screen (Not Detect) U Marijuana (THC) Screen (Not Detect) Influenza Type A (PCR) (Negative) Influenza Type B (PCR) (Negative) RSV RNA Qual (PCR) (Negative) SARS-CoV-2 RNA (RT-PCR) (Negative) 05/30/22 05/31/22 05/31/22 Range/Units 15:36 07:13 07:13 WBC (4.8-10.8) X10*3/uL RBC (4.20-5.50) X10*6/uL Hgb (12.0-16.0) g/dl Hct (37.0-47.0) % MCV (80.0-98.0) fL MCH (27.0-33.0) pg MCHC (31.0-35.0) g/dl RDW (11.0-16.0) % Plt Count (160-400) X10*3/uL MPV (9.4-12.3) fL Immature Gran % (Auto) (0.0-0.4) % Neut % (Auto) (45-73) % Lymph % (Auto) (20-40) % [place] % (Auto) (2-11) % Eos % (Auto) (0-4) % Baso % (Auto) (0-2) % Lymph # (Auto) (1.2-4.9) X10*3/uL [place] # (Auto) (0.1-1.2) X10*3/uL Eos # (Auto) (0.0-0.4) X10*3/uL Baso # (Auto) (0.0-0.2) X10*3/uL Abs Immat Gran (auto) (0.00-0.03) X10*3/uL Absolute Neuts (auto) (2.0-8.3) x10*3/uL Absolute Nucleated RBC (0.0-0.012) X10*3/uL Nucleated RBC % (auto) (0.0-0.2) /100WBC Sodium (135-145) mmol/L Potassium (3.3-5.1) mmol/L Chloride (96-108) mmol/L Carbon Dioxide (22-29) mmol/L Anion Gap (12-20) BUN (9-16) mg/dL Creatinine (0.5-1.4) mg/dL Estim Creat Clear Calc Estimated GFR Random Glucose (60-115) mg/dL Calcium (8.4-10.2) mg/dL Total Bilirubin (0.0-1.0) mg/dL AST (5-31) U/L ALT (0-31) U/L Alkaline Phosphatase (39-117) U/L Ammonia (13-55) umol/L Total Protein (6.5-8.0) g/dL Albumin (3.5-5.0) g/dL 1,25 Dihydroxy Vit D (18-72) pg/mL 1,25 Dihydroxy Vit D2 pg/mL 1,25 Dihydroxy Vit D3 pg/mL PTH Intact (16-77) pg/mL Calcium (PTH Intact) (8.6-10.4) mg/dL Urine Color Yellow Urine Appearance Clear Urine pH 5.5 (5.0-9.0) Ur Specific [place] 1.025 (1.005-1.025) Urine Protein Negative (Neg-Trace) mg/dL Urine Glucose (UA) Negative (Negative) mg/dL Urine Ketones Trace (Negative) mg/dL Urine Blood Negative (Negative) Urine Nitrite Negative (Negative) Ur Leukocyte Esterase Trace H (Negative) Urine RBC 3-5 H (0-2) /HPF Urine WBC 0-5 (0-5) /HPF Ur Squamous Epith Cells 0-2 (0-2) /HPF Urine Bacteria 1+ (None Seen) Hyaline Casts 0-2 (0-2) /LPF Urine Opiates Screen Not Detected (Not Detect) Urine Fentanyl Screen Not Detected (Not Detect) Ur Barbiturates Screen Not Detected (Not Detect) Ur Phencyclidine Scrn Not Detected (Not Detect) Ur Amphetamines Screen Not Detected (Not Detect) U Benzodiazepines Scrn Not Detected (Not Detect) Urine Cocaine Screen Not Detected (Not Detect) U Marijuana (THC) Screen Not Detected (Not Detect) Influenza Type A (PCR) NEGATIVE (Negative) Influenza Type B (PCR) NEGATIVE (Negative) RSV RNA Qual (PCR) NEGATIVE (Negative) SARS-CoV-2 RNA (RT-PCR) NEGATIVE (Negative) 05/31/22 05/31/22 Range/Units 13:10 13:10 WBC (4.8-10.8) X10*3/uL RBC (4.20-5.50) X10*6/uL Hgb (12.0-16.0) g/dl Hct (37.0-47.0) % MCV (80.0-98.0) fL MCH (27.0-33.0) pg MCHC (31.0-35.0) g/dl RDW (11.0-16.0) % Plt Count (160-400) X10*3/uL MPV (9.4-12.3) fL Immature Gran % (Auto) (0.0-0.4) % Neut % (Auto) (45-73) % Lymph % (Auto) (20-40) % [place] % (Auto) (2-11) % Eos % (Auto) (0-4) % Baso % (Auto) (0-2) % Lymph # (Auto) (1.2-4.9) X10*3/uL [place] # (Auto) (0.1-1.2) X10*3/uL Eos # (Auto) (0.0-0.4) X10*3/uL Baso # (Auto) (0.0-0.2) X10*3/uL Abs Immat Gran (auto) (0.00-0.03) X10*3/uL Absolute Neuts (auto) (2.0-8.3) x10*3/uL Absolute Nucleated RBC (0.0-0.012) X10*3/uL Nucleated RBC % (auto) (0.0-0.2) /100WBC Sodium (135-145) mmol/L Potassium (3.3-5.1) mmol/L Chloride (96-108) mmol/L Carbon Dioxide (22-29) mmol/L Anion Gap (12-20) BUN (9-16) mg/dL Creatinine (0.5-1.4) mg/dL Estim Creat Clear Calc Estimated GFR Random Glucose (60-115) mg/dL Calcium (8.4-10.2) mg/dL Total Bilirubin (0.0-1.0) mg/dL AST (5-31) U/L ALT (0-31) U/L Alkaline Phosphatase (39-117) U/L Ammonia (13-55) umol/L Total Protein (6.5-8.0) g/dL Albumin (3.5-5.0) g/dL 1,25 Dihydroxy Vit D 70 (18-72) pg/mL 1,25 Dihydroxy Vit D2 <8 pg/mL 1,25 Dihydroxy Vit D3 70 pg/mL PTH Intact 87 H (16-77) pg/mL Calcium (PTH Intact) 10.6 H (8.6-10.4) mg/dL Urine Color Urine Appearance Urine pH (5.0-9.0) Ur Specific [place] (1.005-1.025) Urine Protein (Neg-Trace) mg/dL Urine Glucose (UA) (Negative) mg/dL Urine Ketones (Negative) mg/dL Urine Blood (Negative) Urine Nitrite (Negative) Ur Leukocyte Esterase (Negative) Urine RBC (0-2) /HPF Urine WBC (0-5) /HPF Ur Squamous Epith Cells (0-2) /HPF Urine Bacteria (None Seen) Hyaline Casts (0-2) /LPF Urine Opiates Screen (Not Detect) Urine Fentanyl Screen (Not Detect) Ur Barbiturates Screen (Not Detect) Ur Phencyclidine Scrn (Not Detect) Ur Amphetamines Screen (Not Detect) U Benzodiazepines Scrn (Not Detect) Urine Cocaine Screen (Not Detect) U Marijuana (THC) Screen (Not Detect) Influenza Type A (PCR) (Negative) Influenza Type B (PCR) (Negative) RSV RNA Qual (PCR) (Negative) SARS-CoV-2 RNA (RT-PCR) (Negative) <Jorge Luis Ahn MD - Last Filed: 06/04/22 09:43> Lab Results 05/30/22 05/30/22 05/30/22 Range/Units 14:22 14:22 14:22 WBC 7.9 (4.8-10.8) X10*3/uL RBC 4.36 (4.20-5.50) X10*6/uL Hgb 11.6 L (12.0-16.0) g/dl Hct 36.0 L (37.0-47.0) % MCV 82.6 (80.0-98.0) fL MCH 26.6 L (27.0-33.0) pg MCHC 32.2 (31.0-35.0) g/dl RDW 13.3 (11.0-16.0) % Plt Count 249 (160-400) X10*3/uL MPV 9.7 (9.4-12.3) fL Immature Gran % (Auto) 0.4 (0.0-0.4) % Neut % (Auto) 62.2 (45-73) % Lymph % (Auto) 25.7 (20-40) % [place] % (Auto) 6.9 (2-11) % Eos % (Auto) 3.9 (0-4) % Baso % (Auto) 0.9 (0-2) % Lymph # (Auto) 2.0 (1.2-4.9) X10*3/uL [place] # (Auto) 0.5 (0.1-1.2) X10*3/uL Eos # (Auto) 0.3 (0.0-0.4) X10*3/uL Baso # (Auto) 0.1 (0.0-0.2) X10*3/uL Abs Immat Gran (auto) 0.03 (0.00-0.03) X10*3/uL Absolute Neuts (auto) 4.9 (2.0-8.3) x10*3/uL Absolute Nucleated RBC 0.000 (0.0-0.012) X10*3/uL Nucleated RBC % (auto) 0.0 (0.0-0.2) /100WBC Sodium 143 (135-145) mmol/L Potassium 4.1 (3.3-5.1) mmol/L Chloride 106 (96-108) mmol/L Carbon Dioxide 27 (22-29) mmol/L Anion Gap 14 (12-20) BUN 16 (9-16) mg/dL Creatinine 0.91 (0.5-1.4) mg/dL Estim Creat Clear Calc 39.4 Estimated GFR 59 Random Glucose 95 (60-115) mg/dL Calcium 10.4 H (8.4-10.2) mg/dL Total Bilirubin 0.7 (0.0-1.0) mg/dL AST 18 (5-31) U/L ALT 11 (0-31) U/L Alkaline Phosphatase 89 D (39-117) U/L Ammonia 21 (13-55) umol/L Total Protein 7.0 (6.5-8.0) g/dL Albumin 4.2 (3.5-5.0) g/dL 1,25 Dihydroxy Vit D (18-72) pg/mL 1,25 Dihydroxy Vit D2 pg/mL 1,25 Dihydroxy Vit D3 pg/mL PTH Intact (16-77) pg/mL Calcium (PTH Intact) (8.6-10.4) mg/dL Urine Color Urine Appearance Urine pH (5.0-9.0) Ur Specific [place] (1.005-1.025) Urine Protein (Neg-Trace) mg/dL Urine Glucose (UA) (Negative) mg/dL Urine Ketones (Negative) mg/dL Urine Blood (Negative) Urine Nitrite (Negative) Ur Leukocyte Esterase (Negative) Urine RBC (0-2) /HPF Urine WBC (0-5) /HPF Ur Squamous Epith Cells (0-2) /HPF Urine Bacteria (None Seen) Hyaline Casts (0-2) /LPF Urine Opiates Screen (Not Detect) Urine Fentanyl Screen (Not Detect) Ur Barbiturates Screen (Not Detect) Ur Phencyclidine Scrn (Not Detect) Ur Amphetamines Screen (Not Detect) U Benzodiazepines Scrn (Not Detect) Urine Cocaine Screen (Not Detect) U Marijuana (THC) Screen (Not Detect) Influenza Type A (PCR) (Negative) Influenza Type B (PCR) (Negative) RSV RNA Qual (PCR) (Negative) SARS-CoV-2 RNA (RT-PCR) (Negative) 05/30/22 05/31/22 05/31/22 Range/Units 15:36 07:13 07:13 WBC (4.8-10.8) X10*3/uL RBC (4.20-5.50) X10*6/uL Hgb (12.0-16.0) g/dl Hct (37.0-47.0) % MCV (80.0-98.0) fL MCH (27.0-33.0) pg MCHC (31.0-35.0) g/dl RDW (11.0-16.0) % Plt Count (160-400) X10*3/uL MPV (9.4-12.3) fL Immature Gran % (Auto) (0.0-0.4) % Neut % (Auto) (45-73) % Lymph % (Auto) (20-40) % [place] % (Auto) (2-11) % Eos % (Auto) (0-4) % Baso % (Auto) (0-2) % Lymph # (Auto) (1.2-4.9) X10*3/uL [place] # (Auto) (0.1-1.2) X10*3/uL Eos # (Auto) (0.0-0.4) X10*3/uL Baso # (Auto) (0.0-0.2) X10*3/uL Abs Immat Gran (auto) (0.00-0.03) X10*3/uL Absolute Neuts (auto) (2.0-8.3) x10*3/uL Absolute Nucleated RBC (0.0-0.012) X10*3/uL Nucleated RBC % (auto) (0.0-0.2) /100WBC Sodium (135-145) mmol/L Potassium (3.3-5.1) mmol/L Chloride (96-108) mmol/L Carbon Dioxide (22-29) mmol/L Anion Gap (12-20) BUN (9-16) mg/dL Creatinine (0.5-1.4) mg/dL Estim Creat Clear Calc Estimated GFR Random Glucose (60-115) mg/dL Calcium (8.4-10.2) mg/dL Total Bilirubin (0.0-1.0) mg/dL AST (5-31) U/L ALT (0-31) U/L Alkaline Phosphatase (39-117) U/L Ammonia (13-55) umol/L Total Protein (6.5-8.0) g/dL Albumin (3.5-5.0) g/dL 1,25 Dihydroxy Vit D (18-72) pg/mL 1,25 Dihydroxy Vit D2 pg/mL 1,25 Dihydroxy Vit D3 pg/mL PTH Intact (16-77) pg/mL Calcium (PTH Intact) (8.6-10.4) mg/dL Urine Color Yellow Urine Appearance Clear Urine pH 5.5 (5.0-9.0) Ur Specific [place] 1.025 (1.005-1.025) Urine Protein Negative (Neg-Trace) mg/dL Urine Glucose (UA) Negative (Negative) mg/dL Urine Ketones Trace (Negative) mg/dL Urine Blood Negative (Negative) Urine Nitrite Negative (Negative) Ur Leukocyte Esterase Trace H (Negative) Urine RBC 3-5 H (0-2) /HPF Urine WBC 0-5 (0-5) /HPF Ur Squamous Epith Cells 0-2 (0-2) /HPF Urine Bacteria 1+ (None Seen) Hyaline Casts 0-2 (0-2) /LPF Urine Opiates Screen Not Detected (Not Detect) Urine Fentanyl Screen Not Detected (Not Detect) Ur Barbiturates Screen Not Detected (Not Detect) Ur Phencyclidine Scrn Not Detected (Not Detect) Ur Amphetamines Screen Not Detected (Not Detect) U Benzodiazepines Scrn Not Detected (Not Detect) Urine Cocaine Screen Not Detected (Not Detect) U Marijuana (THC) Screen Not Detected (Not Detect) Influenza Type A (PCR) NEGATIVE (Negative) Influenza Type B (PCR) NEGATIVE (Negative) RSV RNA Qual (PCR) NEGATIVE (Negative) SARS-CoV-2 RNA (RT-PCR) NEGATIVE (Negative) 05/31/22 05/31/22 Range/Units 13:10 13:10 WBC (4.8-10.8) X10*3/uL RBC (4.20-5.50) X10*6/uL Hgb (12.0-16.0) g/dl Hct (37.0-47.0) % MCV (80.0-98.0) fL MCH (27.0-33.0) pg MCHC (31.0-35.0) g/dl RDW (11.0-16.0) % Plt Count (160-400) X10*3/uL MPV (9.4-12.3) fL Immature Gran % (Auto) (0.0-0.4) % Neut % (Auto) (45-73) % Lymph % (Auto) (20-40) % [place] % (Auto) (2-11) % Eos % (Auto) (0-4) % Baso % (Auto) (0-2) % Lymph # (Auto) (1.2-4.9) X10*3/uL [place] # (Auto) (0.1-1.2) X10*3/uL Eos # (Auto) (0.0-0.4) X10*3/uL Baso # (Auto) (0.0-0.2) X10*3/uL Abs Immat Gran (auto) (0.00-0.03) X10*3/uL Absolute Neuts (auto) (2.0-8.3) x10*3/uL Absolute Nucleated RBC (0.0-0.012) X10*3/uL Nucleated RBC % (auto) (0.0-0.2) /100WBC Sodium (135-145) mmol/L Potassium (3.3-5.1) mmol/L Chloride (96-108) mmol/L Carbon Dioxide (22-29) mmol/L Anion Gap (12-20) BUN (9-16) mg/dL Creatinine (0.5-1.4) mg/dL Estim Creat Clear Calc Estimated GFR Random Glucose (60-115) mg/dL Calcium (8.4-10.2) mg/dL Total Bilirubin (0.0-1.0) mg/dL AST (5-31) U/L ALT (0-31) U/L Alkaline Phosphatase (39-117) U/L Ammonia (13-55) umol/L Total Protein (6.5-8.0) g/dL Albumin (3.5-5.0) g/dL 1,25 Dihydroxy Vit D 70 (18-72) pg/mL 1,25 Dihydroxy Vit D2 <8 pg/mL 1,25 Dihydroxy Vit D3 70 pg/mL PTH Intact 87 H (16-77) pg/mL Calcium (PTH Intact) 10.6 H (8.6-10.4) mg/dL Urine Color Urine Appearance Urine pH (5.0-9.0) Ur Specific [place] (1.005-1.025) Urine Protein (Neg-Trace) mg/dL Urine Glucose (UA) (Negative) mg/dL Urine Ketones (Negative) mg/dL Urine Blood (Negative) Urine Nitrite (Negative) Ur Leukocyte Esterase (Negative) Urine RBC (0-2) /HPF Urine WBC (0-5) /HPF Ur Squamous Epith Cells (0-2) /HPF Urine Bacteria (None Seen) Hyaline Casts (0-2) /LPF Urine Opiates Screen (Not Detect) Urine Fentanyl Screen (Not Detect) Ur Barbiturates Screen (Not Detect) Ur Phencyclidine Scrn (Not Detect) Ur Amphetamines Screen (Not Detect) U Benzodiazepines Scrn (Not Detect) Urine Cocaine Screen (Not Detect) U Marijuana (THC) Screen (Not Detect) Influenza Type A (PCR) (Negative) Influenza Type B (PCR) (Negative) RSV RNA Qual (PCR) (Negative) SARS-CoV-2 RNA (RT-PCR) (Negative) <Vikram Oshea MD - Last Filed: 06/01/22 16:48> Lab Results 05/30/22 05/30/22 05/30/22 Range/Units 14:22 14:22 14:22 WBC 7.9 (4.8-10.8) X10*3/uL RBC 4.36 (4.20-5.50) X10*6/uL Hgb 11.6 L (12.0-16.0) g/dl Hct 36.0 L (37.0-47.0) % MCV 82.6 (80.0-98.0) fL MCH 26.6 L (27.0-33.0) pg MCHC 32.2 (31.0-35.0) g/dl RDW 13.3 (11.0-16.0) % Plt Count 249 (160-400) X10*3/uL MPV 9.7 (9.4-12.3) fL Immature Gran % (Auto) 0.4 (0.0-0.4) % Neut % (Auto) 62.2 (45-73) % Lymph % (Auto) 25.7 (20-40) % [place] % (Auto) 6.9 (2-11) % Eos % (Auto) 3.9 (0-4) % Baso % (Auto) 0.9 (0-2) % Lymph # (Auto) 2.0 (1.2-4.9) X10*3/uL [place] # (Auto) 0.5 (0.1-1.2) X10*3/uL Eos # (Auto) 0.3 (0.0-0.4) X10*3/uL Baso # (Auto) 0.1 (0.0-0.2) X10*3/uL Abs Immat Gran (auto) 0.03 (0.00-0.03) X10*3/uL Absolute Neuts (auto) 4.9 (2.0-8.3) x10*3/uL Absolute Nucleated RBC 0.000 (0.0-0.012) X10*3/uL Nucleated RBC % (auto) 0.0 (0.0-0.2) /100WBC Sodium 143 (135-145) mmol/L Potassium 4.1 (3.3-5.1) mmol/L Chloride 106 (96-108) mmol/L Carbon Dioxide 27 (22-29) mmol/L Anion Gap 14 (12-20) BUN 16 (9-16) mg/dL Creatinine 0.91 (0.5-1.4) mg/dL Estim Creat Clear Calc 39.4 Estimated GFR 59 Random Glucose 95 (60-115) mg/dL Calcium 10.4 H (8.4-10.2) mg/dL Total Bilirubin 0.7 (0.0-1.0) mg/dL AST 18 (5-31) U/L ALT 11 (0-31) U/L Alkaline Phosphatase 89 D (39-117) U/L Ammonia 21 (13-55) umol/L Total Protein 7.0 (6.5-8.0) g/dL Albumin 4.2 (3.5-5.0) g/dL 1,25 Dihydroxy Vit D (18-72) pg/mL 1,25 Dihydroxy Vit D2 pg/mL 1,25 Dihydroxy Vit D3 pg/mL PTH Intact (16-77) pg/mL Calcium (PTH Intact) (8.6-10.4) mg/dL Urine Color Urine Appearance Urine pH (5.0-9.0) Ur Specific [place] (1.005-1.025) Urine Protein (Neg-Trace) mg/dL Urine Glucose (UA) (Negative) mg/dL Urine Ketones (Negative) mg/dL Urine Blood (Negative) Urine Nitrite (Negative) Ur Leukocyte Esterase (Negative) Urine RBC (0-2) /HPF Urine WBC (0-5) /HPF Ur Squamous Epith Cells (0-2) /HPF Urine Bacteria (None Seen) Hyaline Casts (0-2) /LPF Urine Opiates Screen (Not Detect) Urine Fentanyl Screen (Not Detect) Ur Barbiturates Screen (Not Detect) Ur Phencyclidine Scrn (Not Detect) Ur Amphetamines Screen (Not Detect) U Benzodiazepines Scrn (Not Detect) Urine Cocaine Screen (Not Detect) U Marijuana (THC) Screen (Not Detect) Influenza Type A (PCR) (Negative) Influenza Type B (PCR) (Negative) RSV RNA Qual (PCR) (Negative) SARS-CoV-2 RNA (RT-PCR) (Negative) 05/30/22 05/31/22 05/31/22 Range/Units 15:36 07:13 07:13 WBC (4.8-10.8) X10*3/uL RBC (4.20-5.50) X10*6/uL Hgb (12.0-16.0) g/dl Hct (37.0-47.0) % MCV (80.0-98.0) fL MCH (27.0-33.0) pg MCHC (31.0-35.0) g/dl RDW (11.0-16.0) % Plt Count (160-400) X10*3/uL MPV (9.4-12.3) fL Immature Gran % (Auto) (0.0-0.4) % Neut % (Auto) (45-73) % Lymph % (Auto) (20-40) % [place] % (Auto) (2-11) % Eos % (Auto) (0-4) % Baso % (Auto) (0-2) % Lymph # (Auto) (1.2-4.9) X10*3/uL [place] # (Auto) (0.1-1.2) X10*3/uL Eos # (Auto) (0.0-0.4) X10*3/uL Baso # (Auto) (0.0-0.2) X10*3/uL Abs Immat Gran (auto) (0.00-0.03) X10*3/uL Absolute Neuts (auto) (2.0-8.3) x10*3/uL Absolute Nucleated RBC (0.0-0.012) X10*3/uL Nucleated RBC % (auto) (0.0-0.2) /100WBC Sodium (135-145) mmol/L Potassium (3.3-5.1) mmol/L Chloride (96-108) mmol/L Carbon Dioxide (22-29) mmol/L Anion Gap (12-20) BUN (9-16) mg/dL Creatinine (0.5-1.4) mg/dL Estim Creat Clear Calc Estimated GFR Random Glucose (60-115) mg/dL Calcium (8.4-10.2) mg/dL Total Bilirubin (0.0-1.0) mg/dL AST (5-31) U/L ALT (0-31) U/L Alkaline Phosphatase (39-117) U/L Ammonia (13-55) umol/L Total Protein (6.5-8.0) g/dL Albumin (3.5-5.0) g/dL 1,25 Dihydroxy Vit D (18-72) pg/mL 1,25 Dihydroxy Vit D2 pg/mL 1,25 Dihydroxy Vit D3 pg/mL PTH Intact (16-77) pg/mL Calcium (PTH Intact) (8.6-10.4) mg/dL Urine Color Yellow Urine Appearance Clear Urine pH 5.5 (5.0-9.0) Ur Specific [place] 1.025 (1.005-1.025) Urine Protein Negative (Neg-Trace) mg/dL Urine Glucose (UA) Negative (Negative) mg/dL Urine Ketones Trace (Negative) mg/dL Urine Blood Negative (Negative) Urine Nitrite Negative (Negative) Ur Leukocyte Esterase Trace H (Negative) Urine RBC 3-5 H (0-2) /HPF Urine WBC 0-5 (0-5) /HPF Ur Squamous Epith Cells 0-2 (0-2) /HPF Urine Bacteria 1+ (None Seen) Hyaline Casts 0-2 (0-2) /LPF Urine Opiates Screen Not Detected (Not Detect) Urine Fentanyl Screen Not Detected (Not Detect) Ur Barbiturates Screen Not Detected (Not Detect) Ur Phencyclidine Scrn Not Detected (Not Detect) Ur Amphetamines Screen Not Detected (Not Detect) U Benzodiazepines Scrn Not Detected (Not Detect) Urine Cocaine Screen Not Detected (Not Detect) U Marijuana (THC) Screen Not Detected (Not Detect) Influenza Type A (PCR) NEGATIVE (Negative) Influenza Type B (PCR) NEGATIVE (Negative) RSV RNA Qual (PCR) NEGATIVE (Negative) SARS-CoV-2 RNA (RT-PCR) NEGATIVE (Negative) 05/31/22 05/31/22 Range/Units 13:10 13:10 WBC (4.8-10.8) X10*3/uL RBC (4.20-5.50) X10*6/uL Hgb (12.0-16.0) g/dl Hct (37.0-47.0) % MCV (80.0-98.0) fL MCH (27.0-33.0) pg MCHC (31.0-35.0) g/dl RDW (11.0-16.0) % Plt Count (160-400) X10*3/uL MPV (9.4-12.3) fL Immature Gran % (Auto) (0.0-0.4) % Neut % (Auto) (45-73) % Lymph % (Auto) (20-40) % [place] % (Auto) (2-11) % Eos % (Auto) (0-4) % Baso % (Auto) (0-2) % Lymph # (Auto) (1.2-4.9) X10*3/uL [place] # (Auto) (0.1-1.2) X10*3/uL Eos # (Auto) (0.0-0.4) X10*3/uL Baso # (Auto) (0.0-0.2) X10*3/uL Abs Immat Gran (auto) (0.00-0.03) X10*3/uL Absolute Neuts (auto) (2.0-8.3) x10*3/uL Absolute Nucleated RBC (0.0-0.012) X10*3/uL Nucleated RBC % (auto) (0.0-0.2) /100WBC Sodium (135-145) mmol/L Potassium (3.3-5.1) mmol/L Chloride (96-108) mmol/L Carbon Dioxide (22-29) mmol/L Anion Gap (12-20) BUN (9-16) mg/dL Creatinine (0.5-1.4) mg/dL Estim Creat Clear Calc Estimated GFR Random Glucose (60-115) mg/dL Calcium (8.4-10.2) mg/dL Total Bilirubin (0.0-1.0) mg/dL AST (5-31) U/L ALT (0-31) U/L Alkaline Phosphatase (39-117) U/L Ammonia (13-55) umol/L Total Protein (6.5-8.0) g/dL Albumin (3.5-5.0) g/dL 1,25 Dihydroxy Vit D 70 (18-72) pg/mL 1,25 Dihydroxy Vit D2 <8 pg/mL 1,25 Dihydroxy Vit D3 70 pg/mL PTH Intact 87 H (16-77) pg/mL Calcium (PTH Intact) 10.6 H (8.6-10.4) mg/dL Urine Color Urine Appearance Urine pH (5.0-9.0) Ur Specific [place] (1.005-1.025) Urine Protein (Neg-Trace) mg/dL Urine Glucose (UA) (Negative) mg/dL Urine Ketones (Negative) mg/dL Urine Blood (Negative) Urine Nitrite (Negative) Ur Leukocyte Esterase (Negative) Urine RBC (0-2) /HPF Urine WBC (0-5) /HPF Ur Squamous Epith Cells (0-2) /HPF Urine Bacteria (None Seen) Hyaline Casts (0-2) /LPF Urine Opiates Screen (Not Detect) Urine Fentanyl Screen (Not Detect) Ur Barbiturates Screen (Not Detect) Ur Phencyclidine Scrn (Not Detect) Ur Amphetamines Screen (Not Detect) U Benzodiazepines Scrn (Not Detect) Urine Cocaine Screen (Not Detect) U Marijuana (THC) Screen (Not Detect) Influenza Type A (PCR) (Negative) Influenza Type B (PCR) (Negative) RSV RNA Qual (PCR) (Negative) SARS-CoV-2 RNA (RT-PCR) (Negative) <Yahir Neely MD - Last Filed: 06/03/22 16:05> Lab Results 05/30/22 05/30/22 05/30/22 Range/Units 14:22 14:22 14:22 WBC 7.9 (4.8-10.8) X10*3/uL RBC 4.36 (4.20-5.50) X10*6/uL Hgb 11.6 L (12.0-16.0) g/dl Hct 36.0 L (37.0-47.0) % MCV 82.6 (80.0-98.0) fL MCH 26.6 L (27.0-33.0) pg MCHC 32.2 (31.0-35.0) g/dl RDW 13.3 (11.0-16.0) % Plt Count 249 (160-400) X10*3/uL MPV 9.7 (9.4-12.3) fL Immature Gran % (Auto) 0.4 (0.0-0.4) % Neut % (Auto) 62.2 (45-73) % Lymph % (Auto) 25.7 (20-40) % [place] % (Auto) 6.9 (2-11) % Eos % (Auto) 3.9 (0-4) % Baso % (Auto) 0.9 (0-2) % Lymph # (Auto) 2.0 (1.2-4.9) X10*3/uL [place] # (Auto) 0.5 (0.1-1.2) X10*3/uL Eos # (Auto) 0.3 (0.0-0.4) X10*3/uL Baso # (Auto) 0.1 (0.0-0.2) X10*3/uL Abs Immat Gran (auto) 0.03 (0.00-0.03) X10*3/uL Absolute Neuts (auto) 4.9 (2.0-8.3) x10*3/uL Absolute Nucleated RBC 0.000 (0.0-0.012) X10*3/uL Nucleated RBC % (auto) 0.0 (0.0-0.2) /100WBC Sodium 143 (135-145) mmol/L Potassium 4.1 (3.3-5.1) mmol/L Chloride 106 (96-108) mmol/L Carbon Dioxide 27 (22-29) mmol/L Anion Gap 14 (12-20) BUN 16 (9-16) mg/dL Creatinine 0.91 (0.5-1.4) mg/dL Estim Creat Clear Calc 39.4 Estimated GFR 59 Random Glucose 95 (60-115) mg/dL Calcium 10.4 H (8.4-10.2) mg/dL Total Bilirubin 0.7 (0.0-1.0) mg/dL AST 18 (5-31) U/L ALT 11 (0-31) U/L Alkaline Phosphatase 89 D (39-117) U/L Ammonia 21 (13-55) umol/L Total Protein 7.0 (6.5-8.0) g/dL Albumin 4.2 (3.5-5.0) g/dL 1,25 Dihydroxy Vit D (18-72) pg/mL 1,25 Dihydroxy Vit D2 pg/mL 1,25 Dihydroxy Vit D3 pg/mL PTH Intact (16-77) pg/mL Calcium (PTH Intact) (8.6-10.4) mg/dL Urine Color Urine Appearance Urine pH (5.0-9.0) Ur Specific [place] (1.005-1.025) Urine Protein (Neg-Trace) mg/dL Urine Glucose (UA) (Negative) mg/dL Urine Ketones (Negative) mg/dL Urine Blood (Negative) Urine Nitrite (Negative) Ur Leukocyte Esterase (Negative) Urine RBC (0-2) /HPF Urine WBC (0-5) /HPF Ur Squamous Epith Cells (0-2) /HPF Urine Bacteria (None Seen) Hyaline Casts (0-2) /LPF Urine Opiates Screen (Not Detect) Urine Fentanyl Screen (Not Detect) Ur Barbiturates Screen (Not Detect) Ur Phencyclidine Scrn (Not Detect) Ur Amphetamines Screen (Not Detect) U Benzodiazepines Scrn (Not Detect) Urine Cocaine Screen (Not Detect) U Marijuana (THC) Screen (Not Detect) Influenza Type A (PCR) (Negative) Influenza Type B (PCR) (Negative) RSV RNA Qual (PCR) (Negative) SARS-CoV-2 RNA (RT-PCR) (Negative) 05/30/22 05/31/22 05/31/22 Range/Units 15:36 07:13 07:13 WBC (4.8-10.8) X10*3/uL RBC (4.20-5.50) X10*6/uL Hgb (12.0-16.0) g/dl Hct (37.0-47.0) % MCV (80.0-98.0) fL MCH (27.0-33.0) pg MCHC (31.0-35.0) g/dl RDW (11.0-16.0) % Plt Count (160-400) X10*3/uL MPV (9.4-12.3) fL Immature Gran % (Auto) (0.0-0.4) % Neut % (Auto) (45-73) % Lymph % (Auto) (20-40) % [place] % (Auto) (2-11) % Eos % (Auto) (0-4) % Baso % (Auto) (0-2) % Lymph # (Auto) (1.2-4.9) X10*3/uL [place] # (Auto) (0.1-1.2) X10*3/uL Eos # (Auto) (0.0-0.4) X10*3/uL Baso # (Auto) (0.0-0.2) X10*3/uL Abs Immat Gran (auto) (0.00-0.03) X10*3/uL Absolute Neuts (auto) (2.0-8.3) x10*3/uL Absolute Nucleated RBC (0.0-0.012) X10*3/uL Nucleated RBC % (auto) (0.0-0.2) /100WBC Sodium (135-145) mmol/L Potassium (3.3-5.1) mmol/L Chloride (96-108) mmol/L Carbon Dioxide (22-29) mmol/L Anion Gap (12-20) BUN (9-16) mg/dL Creatinine (0.5-1.4) mg/dL Estim Creat Clear Calc Estimated GFR Random Glucose (60-115) mg/dL Calcium (8.4-10.2) mg/dL Total Bilirubin (0.0-1.0) mg/dL AST (5-31) U/L ALT (0-31) U/L Alkaline Phosphatase (39-117) U/L Ammonia (13-55) umol/L Total Protein (6.5-8.0) g/dL Albumin (3.5-5.0) g/dL 1,25 Dihydroxy Vit D (18-72) pg/mL 1,25 Dihydroxy Vit D2 pg/mL 1,25 Dihydroxy Vit D3 pg/mL PTH Intact (16-77) pg/mL Calcium (PTH Intact) (8.6-10.4) mg/dL Urine Color Yellow Urine Appearance Clear Urine pH 5.5 (5.0-9.0) Ur Specific [place] 1.025 (1.005-1.025) Urine Protein Negative (Neg-Trace) mg/dL Urine Glucose (UA) Negative (Negative) mg/dL Urine Ketones Trace (Negative) mg/dL Urine Blood Negative (Negative) Urine Nitrite Negative (Negative) Ur Leukocyte Esterase Trace H (Negative) Urine RBC 3-5 H (0-2) /HPF Urine WBC 0-5 (0-5) /HPF Ur Squamous Epith Cells 0-2 (0-2) /HPF Urine Bacteria 1+ (None Seen) Hyaline Casts 0-2 (0-2) /LPF Urine Opiates Screen Not Detected (Not Detect) Urine Fentanyl Screen Not Detected (Not Detect) Ur Barbiturates Screen Not Detected (Not Detect) Ur Phencyclidine Scrn Not Detected (Not Detect) Ur Amphetamines Screen Not Detected (Not Detect) U Benzodiazepines Scrn Not Detected (Not Detect) Urine Cocaine Screen Not Detected (Not Detect) U Marijuana (THC) Screen Not Detected (Not Detect) Influenza Type A (PCR) NEGATIVE (Negative) Influenza Type B (PCR) NEGATIVE (Negative) RSV RNA Qual (PCR) NEGATIVE (Negative) SARS-CoV-2 RNA (RT-PCR) NEGATIVE (Negative) 05/31/22 05/31/22 Range/Units 13:10 13:10 WBC (4.8-10.8) X10*3/uL RBC (4.20-5.50) X10*6/uL Hgb (12.0-16.0) g/dl Hct (37.0-47.0) % MCV (80.0-98.0) fL MCH (27.0-33.0) pg MCHC (31.0-35.0) g/dl RDW (11.0-16.0) % Plt Count (160-400) X10*3/uL MPV (9.4-12.3) fL Immature Gran % (Auto) (0.0-0.4) % Neut % (Auto) (45-73) % Lymph % (Auto) (20-40) % [place] % (Auto) (2-11) % Eos % (Auto) (0-4) % Baso % (Auto) (0-2) % Lymph # (Auto) (1.2-4.9) X10*3/uL [place] # (Auto) (0.1-1.2) X10*3/uL Eos # (Auto) (0.0-0.4) X10*3/uL Baso # (Auto) (0.0-0.2) X10*3/uL Abs Immat Gran (auto) (0.00-0.03) X10*3/uL Absolute Neuts (auto) (2.0-8.3) x10*3/uL Absolute Nucleated RBC (0.0-0.012) X10*3/uL Nucleated RBC % (auto) (0.0-0.2) /100WBC Sodium (135-145) mmol/L Potassium (3.3-5.1) mmol/L Chloride (96-108) mmol/L Carbon Dioxide (22-29) mmol/L Anion Gap (12-20) BUN (9-16) mg/dL Creatinine (0.5-1.4) mg/dL Estim Creat Clear Calc Estimated GFR Random Glucose (60-115) mg/dL Calcium (8.4-10.2) mg/dL Total Bilirubin (0.0-1.0) mg/dL AST (5-31) U/L ALT (0-31) U/L Alkaline Phosphatase (39-117) U/L Ammonia (13-55) umol/L Total Protein (6.5-8.0) g/dL Albumin (3.5-5.0) g/dL 1,25 Dihydroxy Vit D 70 (18-72) pg/mL 1,25 Dihydroxy Vit D2 <8 pg/mL 1,25 Dihydroxy Vit D3 70 pg/mL PTH Intact 87 H (16-77) pg/mL Calcium (PTH Intact) 10.6 H (8.6-10.4) mg/dL Urine Color Urine Appearance Urine pH (5.0-9.0) Ur Specific [place] (1.005-1.025) Urine Protein (Neg-Trace) mg/dL Urine Glucose (UA) (Negative) mg/dL Urine Ketones (Negative) mg/dL Urine Blood (Negative) Urine Nitrite (Negative) Ur Leukocyte Esterase (Negative) Urine RBC (0-2) /HPF Urine WBC (0-5) /HPF Ur Squamous Epith Cells (0-2) /HPF Urine Bacteria (None Seen) Hyaline Casts (0-2) /LPF Urine Opiates Screen (Not Detect) Urine Fentanyl Screen (Not Detect) Ur Barbiturates Screen (Not Detect) Ur Phencyclidine Scrn (Not Detect) Ur Amphetamines Screen (Not Detect) U Benzodiazepines Scrn (Not Detect) Urine Cocaine Screen (Not Detect) U Marijuana (THC) Screen (Not Detect) Influenza Type A (PCR) (Negative) Influenza Type B (PCR) (Negative) RSV RNA Qual (PCR) (Negative) SARS-CoV-2 RNA (RT-PCR) (Negative) <Logan John MD - Last Filed: 06/05/22 10:21> Lab Results 05/30/22 05/30/22 05/30/22 Range/Units 14:22 14:22 14:22 WBC 7.9 (4.8-10.8) X10*3/uL RBC 4.36 (4.20-5.50) X10*6/uL Hgb 11.6 L (12.0-16.0) g/dl Hct 36.0 L (37.0-47.0) % MCV 82.6 (80.0-98.0) fL MCH 26.6 L (27.0-33.0) pg MCHC 32.2 (31.0-35.0) g/dl RDW 13.3 (11.0-16.0) % Plt Count 249 (160-400) X10*3/uL MPV 9.7 (9.4-12.3) fL Immature Gran % (Auto) 0.4 (0.0-0.4) % Neut % (Auto) 62.2 (45-73) % Lymph % (Auto) 25.7 (20-40) % [place] % (Auto) 6.9 (2-11) % Eos % (Auto) 3.9 (0-4) % Baso % (Auto) 0.9 (0-2) % Lymph # (Auto) 2.0 (1.2-4.9) X10*3/uL [place] # (Auto) 0.5 (0.1-1.2) X10*3/uL Eos # (Auto) 0.3 (0.0-0.4) X10*3/uL Baso # (Auto) 0.1 (0.0-0.2) X10*3/uL Abs Immat Gran (auto) 0.03 (0.00-0.03) X10*3/uL Absolute Neuts (auto) 4.9 (2.0-8.3) x10*3/uL Absolute Nucleated RBC 0.000 (0.0-0.012) X10*3/uL Nucleated RBC % (auto) 0.0 (0.0-0.2) /100WBC Sodium 143 (135-145) mmol/L Potassium 4.1 (3.3-5.1) mmol/L Chloride 106 (96-108) mmol/L Carbon Dioxide 27 (22-29) mmol/L Anion Gap 14 (12-20) BUN 16 (9-16) mg/dL Creatinine 0.91 (0.5-1.4) mg/dL Estim Creat Clear Calc 39.4 Estimated GFR 59 Random Glucose 95 (60-115) mg/dL Calcium 10.4 H (8.4-10.2) mg/dL Total Bilirubin 0.7 (0.0-1.0) mg/dL AST 18 (5-31) U/L ALT 11 (0-31) U/L Alkaline Phosphatase 89 D (39-117) U/L Ammonia 21 (13-55) umol/L Total Protein 7.0 (6.5-8.0) g/dL Albumin 4.2 (3.5-5.0) g/dL 1,25 Dihydroxy Vit D (18-72) pg/mL 1,25 Dihydroxy Vit D2 pg/mL 1,25 Dihydroxy Vit D3 pg/mL PTH Intact (16-77) pg/mL Calcium (PTH Intact) (8.6-10.4) mg/dL Urine Color Urine Appearance Urine pH (5.0-9.0) Ur Specific [place] (1.005-1.025) Urine Protein (Neg-Trace) mg/dL Urine Glucose (UA) (Negative) mg/dL Urine Ketones (Negative) mg/dL Urine Blood (Negative) Urine Nitrite (Negative) Ur Leukocyte Esterase (Negative) Urine RBC (0-2) /HPF Urine WBC (0-5) /HPF Ur Squamous Epith Cells (0-2) /HPF Urine Bacteria (None Seen) Hyaline Casts (0-2) /LPF Urine Opiates Screen (Not Detect) Urine Fentanyl Screen (Not Detect) Ur Barbiturates Screen (Not Detect) Ur Phencyclidine Scrn (Not Detect) Ur Amphetamines Screen (Not Detect) U Benzodiazepines Scrn (Not Detect) Urine Cocaine Screen (Not Detect) U Marijuana (THC) Screen (Not Detect) Influenza Type A (PCR) (Negative) Influenza Type B (PCR) (Negative) RSV RNA Qual (PCR) (Negative) SARS-CoV-2 RNA (RT-PCR) (Negative) 05/30/22 05/31/22 05/31/22 Range/Units 15:36 07:13 07:13 WBC (4.8-10.8) X10*3/uL RBC (4.20-5.50) X10*6/uL Hgb (12.0-16.0) g/dl Hct (37.0-47.0) % MCV (80.0-98.0) fL MCH (27.0-33.0) pg MCHC (31.0-35.0) g/dl RDW (11.0-16.0) % Plt Count (160-400) X10*3/uL MPV (9.4-12.3) fL Immature Gran % (Auto) (0.0-0.4) % Neut % (Auto) (45-73) % Lymph % (Auto) (20-40) % [place] % (Auto) (2-11) % Eos % (Auto) (0-4) % Baso % (Auto) (0-2) % Lymph # (Auto) (1.2-4.9) X10*3/uL [place] # (Auto) (0.1-1.2) X10*3/uL Eos # (Auto) (0.0-0.4) X10*3/uL Baso # (Auto) (0.0-0.2) X10*3/uL Abs Immat Gran (auto) (0.00-0.03) X10*3/uL Absolute Neuts (auto) (2.0-8.3) x10*3/uL Absolute Nucleated RBC (0.0-0.012) X10*3/uL Nucleated RBC % (auto) (0.0-0.2) /100WBC Sodium (135-145) mmol/L Potassium (3.3-5.1) mmol/L Chloride (96-108) mmol/L Carbon Dioxide (22-29) mmol/L Anion Gap (12-20) BUN (9-16) mg/dL Creatinine (0.5-1.4) mg/dL Estim Creat Clear Calc Estimated GFR Random Glucose (60-115) mg/dL Calcium (8.4-10.2) mg/dL Total Bilirubin (0.0-1.0) mg/dL AST (5-31) U/L ALT (0-31) U/L Alkaline Phosphatase (39-117) U/L Ammonia (13-55) umol/L Total Protein (6.5-8.0) g/dL Albumin (3.5-5.0) g/dL 1,25 Dihydroxy Vit D (18-72) pg/mL 1,25 Dihydroxy Vit D2 pg/mL 1,25 Dihydroxy Vit D3 pg/mL PTH Intact (16-77) pg/mL Calcium (PTH Intact) (8.6-10.4) mg/dL Urine Color Yellow Urine Appearance Clear Urine pH 5.5 (5.0-9.0) Ur Specific [place] 1.025 (1.005-1.025) Urine Protein Negative (Neg-Trace) mg/dL Urine Glucose (UA) Negative (Negative) mg/dL Urine Ketones Trace (Negative) mg/dL Urine Blood Negative (Negative) Urine Nitrite Negative (Negative) Ur Leukocyte Esterase Trace H (Negative) Urine RBC 3-5 H (0-2) /HPF Urine WBC 0-5 (0-5) /HPF Ur Squamous Epith Cells 0-2 (0-2) /HPF Urine Bacteria 1+ (None Seen) Hyaline Casts 0-2 (0-2) /LPF Urine Opiates Screen Not Detected (Not Detect) Urine Fentanyl Screen Not Detected (Not Detect) Ur Barbiturates Screen Not Detected (Not Detect) Ur Phencyclidine Scrn Not Detected (Not Detect) Ur Amphetamines Screen Not Detected (Not Detect) U Benzodiazepines Scrn Not Detected (Not Detect) Urine Cocaine Screen Not Detected (Not Detect) U Marijuana (THC) Screen Not Detected (Not Detect) Influenza Type A (PCR) NEGATIVE (Negative) Influenza Type B (PCR) NEGATIVE (Negative) RSV RNA Qual (PCR) NEGATIVE (Negative) SARS-CoV-2 RNA (RT-PCR) NEGATIVE (Negative) 05/31/22 05/31/22 Range/Units 13:10 13:10 WBC (4.8-10.8) X10*3/uL RBC (4.20-5.50) X10*6/uL Hgb (12.0-16.0) g/dl Hct (37.0-47.0) % MCV (80.0-98.0) fL MCH (27.0-33.0) pg MCHC (31.0-35.0) g/dl RDW (11.0-16.0) % Plt Count (160-400) X10*3/uL MPV (9.4-12.3) fL Immature Gran % (Auto) (0.0-0.4) % Neut % (Auto) (45-73) % Lymph % (Auto) (20-40) % [place] % (Auto) (2-11) % Eos % (Auto) (0-4) % Baso % (Auto) (0-2) % Lymph # (Auto) (1.2-4.9) X10*3/uL [place] # (Auto) (0.1-1.2) X10*3/uL Eos # (Auto) (0.0-0.4) X10*3/uL Baso # (Auto) (0.0-0.2) X10*3/uL Abs Immat Gran (auto) (0.00-0.03) X10*3/uL Absolute Neuts (auto) (2.0-8.3) x10*3/uL Absolute Nucleated RBC (0.0-0.012) X10*3/uL Nucleated RBC % (auto) (0.0-0.2) /100WBC Sodium (135-145) mmol/L Potassium (3.3-5.1) mmol/L Chloride (96-108) mmol/L Carbon Dioxide (22-29) mmol/L Anion Gap (12-20) BUN (9-16) mg/dL Creatinine (0.5-1.4) mg/dL Estim Creat Clear Calc Estimated GFR Random Glucose (60-115) mg/dL Calcium (8.4-10.2) mg/dL Total Bilirubin (0.0-1.0) mg/dL AST (5-31) U/L ALT (0-31) U/L Alkaline Phosphatase (39-117) U/L Ammonia (13-55) umol/L Total Protein (6.5-8.0) g/dL Albumin (3.5-5.0) g/dL 1,25 Dihydroxy Vit D 70 (18-72) pg/mL 1,25 Dihydroxy Vit D2 <8 pg/mL 1,25 Dihydroxy Vit D3 70 pg/mL PTH Intact 87 H (16-77) pg/mL Calcium (PTH Intact) 10.6 H (8.6-10.4) mg/dL Urine Color Urine Appearance Urine pH (5.0-9.0) Ur Specific [place] (1.005-1.025) Urine Protein (Neg-Trace) mg/dL Urine Glucose (UA) (Negative) mg/dL Urine Ketones (Negative) mg/dL Urine Blood (Negative) Urine Nitrite (Negative) Ur Leukocyte Esterase (Negative) Urine RBC (0-2) /HPF Urine WBC (0-5) /HPF Ur Squamous Epith Cells (0-2) /HPF Urine Bacteria (None Seen) Hyaline Casts (0-2) /LPF Urine Opiates Screen (Not Detect) Urine Fentanyl Screen (Not Detect) Ur Barbiturates Screen (Not Detect) Ur Phencyclidine Scrn (Not Detect) Ur Amphetamines Screen (Not Detect) U Benzodiazepines Scrn (Not Detect) Urine Cocaine Screen (Not Detect) U Marijuana (THC) Screen (Not Detect) Influenza Type A (PCR) (Negative) Influenza Type B (PCR) (Negative) RSV RNA Qual (PCR) (Negative) SARS-CoV-2 RNA (RT-PCR) (Negative) <Naveed HughesDO - Last Filed: 06/06/22 10:20> Imaging Data CT scan - head: Attestation: I personally reviewed and interpreted this imaging study as follows: <JAI Valencia - Last Filed: 05/30/22 17:58> My impression: No acute process. <JAI Valencia - Last Filed: 05/30/22 17:58> Radiologist's impression: EXAMINATION: CT HEAD WITHOUT CONTRAST CLINICAL INFORMATION: Altered mental status.? COMPARISON: None TECHNIQUE: Contiguous axial imaging was performed from the skull base to vertex without intravenous administration of contrast. Coronal and sagittal reformatted images were obtained. This CT examination was performed using dose optimization techniques as appropriate, variously including the following: *Automated exposure control *Adjustment of mA and/or kV according to patient size (this includes techniques or standardized protocols for targeted exams where dose is matched to indication/reason for exam; i.e. extremities or head) *Use of iterative reconstruction technique DLP: 552 mGy-cm FINDINGS: There is mild widening of the cortical sulci and associated ventriculomegaly. The lateral ventricles are symmetrical. Mild periventricular microvascular changes are seen. The third and fourth ventricles are in their normal midline position. The basilar and prepontine cisterns are unremarkable. There is no acute intra or extracerebral abnormality. There is no mass effect or midline shift. Sections through the bony calvarium are unremarkable. The orbits are intact. The paranasal sinuses are clear. The mastoid air cells are clear. CT/CT head/brain wo IV con IMPRESSION: No acute intracranial pathology. Dictated By: Valdez Kang MD Signed By: Electronically signed by Valdez Kang MD 05/30/22 1522 <JAI Valencia - Last Filed: 05/30/22 17:58> ECG Data Attestation: I personally reviewed and interpreted this ECG as follows: <JAI Valencia - Last Filed: 05/30/22 17:58> Prior ECG tracings: available for review <JAI Valencia - Last Filed: 05/30/22 17:58> Interpretation: Vent. Rate: 075 BPM ? ? Atrial Rate: 075 BPM P-R Int: 146 ms? QRS Dur: 086 ms QT Int: 386 ms ? ? ? P-R-T Axes: 067 026 055 degrees QTc Int: 431 ms ? Normal sinus rhythm Normal ECG When compared with ECG of 01-JUN-2019 17:11, No significant change was found DD/ 1612 <JAI Valencia - Last Filed: 05/30/22 17:58> Discharge Plan Discharge Clinical Impression: Confusion <JAI Valencia - Last Filed: 05/30/22 17:58> Patient Disposition: Admitted As Inpatient <JAI Valencia Last Filed: 05/30/22 17:58>
[2022-05-30 13:34] VITALS: BP 176/81; BP 180/80; PULSE 71; PULSE 82; RESP 16; TEMP 36.7; O2SAT 100; BMI 23.5
[2022-05-30 13:46] VITALS: BP 180/80; PULSE 75; RESP 15; TEMP 37; O2SAT 98
[2022-05-30 14:29] LABS: MANUAL DIFF FLAG NO
[2022-05-30 14:33] LABS: Basophils Absolute Auto 0.1 X10*3/uL (0.0-0.2); Basophils Percent Auto 0.9 % (0-2); Eosinophils Absolute Auto 0.3 X10*3/uL (0.0-0.4); Eosinophils Percent Auto 3.9 % (0-4); Hemoglobin 11.6 g/dl (12.0-16.0); Imm Gran Abs Auto 0.03 X10*3/uL (0.00-0.03); Imm Gran Pct Auto 0.4 % (0.0-0.4); Lymphocytes Percent Auto 25.7 % (20-40); Mean Corpuscular HGB Conc 32.2 g/dl (31.0-35.0); Mean Corpuscular Hemoglobin 26.6 pg (27.0-33.0); Mean Corpuscular Volume 82.6 fL (80.0-98.0); Mean Platelet Volume 9.7 fL (9.4-12.3); Monocytes Absolute Auto 0.5 X10*3/uL (0.1-1.2); Monocytes Percent Auto 6.9 % (2-11); Neutrophils Absolute Auto 4.9 x10*3/uL (2.0-8.3); Neutrophils Percent Auto 62.2 % (45-73); Platelet Count 249 X10*3/uL (160-400); Red Blood Count 4.36 X10*6/uL (4.20-5.50); Red Cell Distribution Width 13.3 % (11.0-16.0); White Blood Count 7.9 X10*3/uL (4.8-10.8)
[2022-05-30 14:42] LABS: Ammonia 21 umol/L (13-55)
[2022-05-30 14:52] LABS: Alanine Aminotransferase 11 U/L (0-31); Albumin Level 4.2 g/dL (3.5-5.0); Alkaline Phosphatase 89 U/L (39-117); Anion Gap 14 (12-20); Aspartate Amino Transferase 18 U/L (5-31); Bilirubin Total 0.7 mg/dL (0.0-1.0); Blood Urea Nitrogen 16 mg/dL (9-16); Calcium 10.4 mg/dL (8.4-10.2); Carbon Dioxide 27 mmol/L (22-29); Chloride 106 mmol/L (96-108); Creatinine Clr Calc Pharmacy 39.4; Estimated Glomerular Filt Rate 59; Glucose Random 95 mg/dL (60-115); Potassium 4.1 mmol/L (3.3-5.1); Sodium 143 mmol/L (135-145)
[2022-05-30 15:10] VITALS: BP 180/80; PULSE 75; O2SAT 98
[2022-05-30 15:37] VITALS: BP 181/89; PULSE 80; RESP 14; TEMP 36.7; O2SAT 98
--- NOTE | 2022-05-30 15:54 | ECG_ITS ---
Test Reason : WEAKNESS Blood Pressure : / mmHG Vent. Rate : 075 BPM Atrial Rate : 075 BPM P-R Int : 146 ms QRS Dur : 086 ms QT Int : 386 ms P-R-T Axes : 067 026 055 degrees QTc Int : 431 ms Normal sinus rhythm Normal ECG When compared with ECG of 01-JUN-2019 17:11, No significant change was found Referred By: Pham Sanderson Electronically Signed By:BELINDA CAMPOS MD
[2022-05-30 16:26] LABS: Influenza A PCR NEGATIVE (Negative); Influenza B PCR NEGATIVE (Negative); Resp Syncy Virus RNA Qual PCR NEGATIVE (Negative); SARS COV2 PCR INHOUSE NEGATIVE (Negative)
--- NOTE | 2022-05-30 17:30 | MHC.CM.ED ---
Addendum entered by Mindi Hobbs 05/30/22 18:21: Nikkie Saucedo tells CM that patient has lost weight, she does not feel she is eating well and is not always taking her medications. 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 CM following for discharge planning. Original Note: CM met with patient at request of Pham VERGARA. Pt from home. Increasing AMS. Pt has bedbugs and has welt like bites on her arms visible to this handbook writer. C/O shoulder pain. Pt is somewhat confused and tells CM she has a bad memory. Pt does not have HCP on file and patient states she doesn't have one. Pt tells CM all of her family have . She lives alone. She tells CM she has a social service assistant, Nikkie Saucedo who helps her, but she doesn't know any contact information about her. Pt checked her wallet, no contact information found. Pt has a friend, Tracey Serra, but she doesn't know her contact information or what town she lives in. Pt told CM she did not get any covid vaccinations, but has a vaccination card. Moderna x2, no booster (08/18/20, 09/15/20). Pt has a cane, but she doesn't use it much. Doesn't think she has any services and does not want anyone in her home. States they steal things from her. Pt has 2 cats. States she still drives. PT has recommended home PT. CM is unsure if patient has capacity and can live safely at home. CM called patients PCP, Eliane Mccracken for any contact information or documented services. Per PCP inspectors and regulatory officers, Nikkie Saucedo is who brings her to the doctor and they have contact info on her. ([phone]). CM called Nikkie Saucedo. She is a social service assistant, but not the patient's social service assistant. She met her at the [facility] 4 years ago and has been trying to help her, as she has no family. She lives in [place] and sees the patient every 2 weeks. She helps her shop, cleans her apartment, handles all her finances and brings her to the doctor. She is not her HCP. States patient is not capable of paying her bills. Is very confused. Thinks she needs a conservator. Nikkie Saucedo is not willing to be her guardian, but will help with any transition. Nikkie Saucedo tells CM she is not safe to be at home. Pt has been increasingly confused and forgetful. Pt still occasionally drives, even though she has encouraged the patient not to. States pt got lost driving. Nikkie Saucedo tells CM she has filed with Elder protective services multiple times. States [facility] for [facility], but has not made contact with them. Nikkie Saucedo again told CM that the patient is not safe at home. States she will care for cats. CM explained that pt medical workup is not complete, but the CM will speak with provider about her concerns. Pham aware. Will order psych for capacity. Aware that pt is not safe to go home. Pt has [employer] Medicare and [employer] Safety Net. Pt will probably need guardianship and MH application, for LTC. Gayla Matias aware. CM to follow for discharge planning.
--- NOTE | 2022-05-30 17:43 | PC.NURSE ---
PT states she wants to go home if I have to put my shoes on and walk out of here I will .
--- NOTE | 2022-05-30 19:05 | PC.NURSE ---
PT dressed, requesting to leave ER. Provider notified.
--- NOTE | 2022-05-31 06:45 | PC.NURSE ---
Patient slept through the night, no distress observed/reported, med rec completed/pending provider's approval, behavior non concerning, patient is confused requires reorientation, patient is case management pending placement, VSS, will continue to monitor.
[2022-05-31 07:05] VITALS: BP 152/62; PULSE 64; RESP 15; TEMP 36.8; O2SAT 98
[2022-05-31 07:32] LABS: Appearance Urine Clear; Color Urine Yellow; Glucose Urine UA Negative (Negative); Leukocyte Esterase Urine Trace (Negative); Nitrite Urine Negative (Negative); PH 5.5 (5.0-9.0); Specific Gravity - Urine 1.025 (1.005-1.025); UMIC TRIGGER UACC YES; Urine Blood Negative (Negative); Urine Ketones Trace mg/dL (Negative); Urine Protein Negative (Neg-Trace)
[2022-05-31 07:44] LABS: Amphetamine Screen Urine Not Detected (Not Detect); Barbiturates, Urine Not Detected (Not Detect); Benzodiazepines Screen Urine Not Detected (Not Detect); Cannabinoid Screen Urine Not Detected (Not Detect); Cocaine Screen Urine Not Detected (Not Detect); Fentanyl, urine Not Detected (Not Detect); Opiate Screen Urine Not Detected (Not Detect); Phencyclidine Screen Urine Not Detected (Not Detect)
[2022-05-31 07:50] LABS: Bacteria Urine 1+ (None Seen); Hyaline Casts Urine 0-2 /LPF (0-2); Squamous Epithelial Cell Urine 0-2 /HPF (0-2); WBC Urine 0-5 /HPF (0-5)
[2022-05-31 07:51] VITALS: RESP 16
[2022-05-31] MEDS: Escitalopram Oxalate 5 MG TABLET PO (08:30)
[2022-05-31] MEDS: amLODIPine Besylate 5 MG TABLET PO (08:30)
--- NOTE | 2022-05-31 09:20 | PC.NURSE ---
Addendum entered by Jyoti Arroyo 05/31/22 13:16: Per psych consult: [the patient] lacks capacity to make medical decisions at this point as she is unable to show understanding, appreciation of risk versus benefits of medical treatments. Addendum entered by Jyoti Arroyo 05/31/22 10:13: Pt requires frequent reorientation to place, room location in [facility], Location of bathrooms, why she was brought to [facility] for evaluation, and the need to await psychiatry consult. Affect is calm and cooperative. when reorientated to plan of care pt is congruent. Original Note: Pt calmly doing callisthenic in room. Pt ambulates w/ walker to and from bathroom. Pt requires frequent orientation regarding location of bathroom but is able to take medication w/o issue.
[2022-05-31 09:48] VITALS: BP 171/75; PULSE 66; RESP 18; TEMP 36.5; O2SAT 18
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
[2022-05-31 12:40] VITALS: RESP 18; O2SAT 98
[2022-05-31 14:00] VITALS: RESP 16
[2022-05-31] MEDS: Memantine HCl 10 MG TABLET PO (19:59)
[2022-05-31 20:06] VITALS: BP 151/83; PULSE 77; RESP 18; TEMP 36.8; O2SAT 97
[2022-06-01 01:25] VITALS: BP 154/60; PULSE 70; RESP 15; TEMP 36.7; O2SAT 99
--- NOTE | 2022-06-01 07:08 | PC.NURSE ---
pt is awake and ambulating independently with walker to bathroom and back. pt is waiting for placement with case management.
[2022-06-01] MEDS: amLODIPine Besylate 5 MG TABLET PO (08:18)
[2022-06-01] MEDS: Escitalopram Oxalate 5 MG TABLET PO (08:18)
--- NOTE | 2022-06-01 09:22 | MHC.CM.ED ---
Addendum entered by Carmen Mcdonald 06/01/22 14:07: Received telephone call from patient's friend Sara Saucedo. Sara Saucedo has arranged for patient's neighbor to feed her cats. Patient has not been to any other hospitals. Original Note: Patient remains in ER behavioral health pod. Psych consult completed. Patient found not to have the capacity to make her own medical decisions. No HCP on file. Anticipate guardianship will need to be started. [facility] is closed today. Anticipate guardianship will need to be started on Saturday. Continue to monitor for d/c needs.
--- NOTE | 2022-06-01 13:58 | PC.NURSE ---
spoke with CM, pt will need an emergency guardian through stiff leg [employer]. cm reports that this will take 2-3 weeks to begin and the office is not open until saturday.
--- NOTE | 2022-06-01 16:02 | MHC.CM.ED ---
Received telephone call from Officeannette Carreon at [employer]. Officer Lauri can be reached via telephone at [phone]. Because patient does not have the capacity to make her own decisions, and patient doesn't have any family, Officer Lauri will take the cats out of patient's home. If any family or friends come forward and want to claim the cats, they can contact lens edge buffer Lauri. Continue to monitor for d/c needs.
--- NOTE | 2022-06-01 18:34 | PC.NURSE ---
Addendum entered by Olivia Zimmerman RN 06/01/22 18:52: report given to JULIA Brooks Original Note: report received from JULIA Roman resting in the room no signs of acute distress notice close monitoring maintained
[2022-06-01] MEDS: Memantine HCl 10 MG TABLET PO (20:39)
--- NOTE | 2022-06-02 06:28 | PC.NURSE ---
Patient slept through the night, no distress observed/reported, medication compliant, behavior non concerning, patient is confused requires constant reorientation, case management pending placement, VSS, will continue to monitor.
--- NOTE | 2022-06-02 07:23 | PC.NURSE ---
No acute incidents overnight reported. Pt in room eating breakfast.
[2022-06-02 07:52] VITALS: BP 176/78; PULSE 76; RESP 16; TEMP 36.9; O2SAT 97
[2022-06-02] MEDS: Escitalopram Oxalate 5 MG TABLET PO (08:21)
[2022-06-02] MEDS: amLODIPine Besylate 5 MG TABLET PO (08:21)
[2022-06-02 14:00] VITALS: RESP 16
[2022-06-02] MEDS: Memantine HCl 10 MG TABLET PO (20:14)
[2022-06-03 04:14] VITALS: BP 152/64; PULSE 69; RESP 17; TEMP 36.8; O2SAT 97
--- NOTE | 2022-06-03 06:38 | PC.NURSE ---
Patient slept through the night, no distress observed/reported, medication compliant, behavior non concerning, patient is confused requires constant reorientation, case management pending placement, no update on placement so far, VSS, will continue to monitor
[2022-06-03 08:09] VITALS: BP 133/64; PULSE 73; RESP 16; TEMP 36.7; O2SAT 97
[2022-06-03] MEDS: Escitalopram Oxalate 5 MG TABLET PO (08:16)
[2022-06-03] MEDS: amLODIPine Besylate 5 MG TABLET PO (08:16)
[2022-06-03 10:17] LABS: Calcium (PTHI) 10.6 mg/dL (8.6-10.4); PTHI 87 pg/mL (16-77)
[2022-06-03] MEDS: Memantine HCl 10 MG TABLET PO (20:06)
[2022-06-03 23:03] VITALS: BP 139/98; PULSE 96; RESP 17; TEMP 36.9; O2SAT 95
--- NOTE | 2022-06-04 05:02 | PC.NURSE ---
Patient slept through the night, no distress observed/reported, medication compliant, behavior non concerning, patient is confused requires constant redirection, case management pending placement, no update on placement so far, VSS, will continue to monitor
[2022-06-04 07:56] VITALS: BP 152/73; PULSE 65; RESP 15; TEMP 36.9; O2SAT 94
--- NOTE | 2022-06-04 08:40 | MHC.CM.ED ---
Patient remains in ER BH pod. Patient will need guardianship and conservatorship. Gayla Matias, Director and will start this process. Occupational therapy eval ordered focusing on MOCA. Continue to monitor for d/c needs.
[2022-06-04] MEDS: Escitalopram Oxalate 5 MG TABLET PO (09:17)
[2022-06-04] MEDS: amLODIPine Besylate 5 MG TABLET PO (09:17)
--- NOTE | 2022-06-04 10:58 | PC.NURSE ---
getting excercise walking w walker for a solid hour this morning, pleasant, nad, no complaints
--- NOTE | 2022-06-04 15:13 | PC.NURSE ---
MoCA cognitive assessment administered this date. Environment modified to decrease auditory and visual distraction for most objective outcome. Pts score 6/30 is indicative severe cognitive deficit. Pts attending nurse and OTR notified and aware of pt result.
--- NOTE | 2022-06-04 17:18 | MHC.CM.ED ---
Per OT assessment, patient needs 24/supervision for safety. Significant impairment in executive functioning, attention span, language and abstract thinking .
[2022-06-04] MEDS: Memantine HCl 10 MG TABLET PO (20:20)
[2022-06-04 21:47] LABS: VITAMIN D (1,25 OH) D3 70 pg/mL; Vit D (1,25-Dihydroxy) Total 70 pg/mL (18-72); Vitamin D (1,25 OH) D2 <8 pg/mL
[2022-06-05 01:26] VITALS: BP 148/54; PULSE 60; RESP 15; TEMP 36.4; O2SAT 100
--- NOTE | 2022-06-05 07:17 | PC.NURSE ---
patient appears to remain at rest this am, respirations are even and unlabored patient appears in no distress, did ambulate self to bathroom steadily this am
--- NOTE | 2022-06-05 08:45 | MHC.CM.ED ---
Patient remains in ER BH pod. Guardianship/conservator paperwork started by Gayla Matias CM Director. Patient only has [employer] Safety Net. Facesheet sent to financial counselors so they can follow to complete [facility] application when appropriate. Continue to monitor for d/c needs.
[2022-06-05 09:45] VITALS: BP 175/76; PULSE 68; RESP 16; TEMP 36.6; O2SAT 99
[2022-06-05] MEDS: Escitalopram Oxalate 5 MG TABLET PO (09:50)
[2022-06-05] MEDS: amLODIPine Besylate 5 MG TABLET PO (09:50)
--- NOTE | 2022-06-05 14:50 | PC.NURSE ---
Pt seen this date for individual OT tx. Pt presents bright, alert, pleasantly confused, and receptive to sensory items and coloring pages. Pt engages in brief conversation with insurance underwriter sales. Pt is seated in POD milieu socializing with a peer upon completion of tx. Consult with ED coordinator regarding the welfare of the pts two cats and its reported that cats have been taken care of by animal control and currently up for adoption to pts family members.
[2022-06-05] MEDS: Memantine HCl 10 MG TABLET PO (21:05)
[2022-06-05 21:49] VITALS: BP 157/65; PULSE 69; RESP 18; TEMP 36.9; O2SAT 98
--- NOTE | 2022-06-06 06:14 | PC.NURSE ---
Patient slept through the night, no distress observed/reported, medication compliant, behavior non concerning, patient is confused requires constant redirection, case management pending placement, guardianship paper work in process per case management, patient expresses concerns about her cats, VSS, will continue to monitor
[2022-06-06 06:27] VITALS: BP 176/67; PULSE 66; RESP 16; O2SAT 96
[2022-06-06 07:18] VITALS: BP 170/68; PULSE 72; RESP 16; TEMP 37.1; O2SAT 98
[2022-06-06] MEDS: Escitalopram Oxalate 5 MG TABLET PO (08:43)
[2022-06-06] MEDS: amLODIPine Besylate 5 MG TABLET PO (08:43)
--- NOTE | 2022-06-06 15:42 | PC.NURSE ---
Pt seen this date for individual OT tx. Pt initially presents with mild agitation stating They aren't go to let me go home! , Pt is easily re-directable with therapeutic use of self. Pt engages in simple card game (high/low) stating I used to play this with my . Pt is pleasant, forgetful, and is well received by POD staff and peers in POD. Pt continues to play cards with peer seated in POD milieu upon completion of tx.
--- NOTE | 2022-06-06 16:08 | PC.NURSE ---
Neighbor called and inspection done in apartment and it was determined that she has beatle problem not bed bugs
[2022-06-06] MEDS: Memantine HCl 10 MG TABLET PO (20:18)
[2022-06-06 20:34] VITALS: BP 152/65; PULSE 77; RESP 18; TEMP 36.6; O2SAT 96
--- NOTE | 2022-06-07 05:43 | PC.NURSE ---
Patient slept through the night, no distress observed/reported, medication compliant, behavior pleasant and non concerning, patient is forgetful requiring constant redirection, case management pending placement, guardianship paper work in process per case management, patient is not happy to be here expresses her wish to go back to her apartment, VSS, will continue to monitor
[2022-06-07] MEDS: amLODIPine Besylate 5 MG TABLET PO (08:42)
[2022-06-07] MEDS: Escitalopram Oxalate 5 MG TABLET PO (08:42)
[2022-06-07 10:11] VITALS: BP 167/80; PULSE 106; RESP 16; TEMP 36.4; O2SAT 99
--- NOTE | 2022-06-07 10:24 | MHC.CM.ED ---
Patient remains in ER BH pod. Guardianship paperwork was submitted. Guardian will be Shania Mcwilliams. We are currently waiting for a court date so that guardianship can be approved by a [facility]. Continue to monitor for d/c needs.
--- NOTE | 2022-06-07 12:12 | PC.NURSE ---
Contact made to randi for support needs.
[2022-06-07 14:00] VITALS: RESP 16
[2022-06-07] MEDS: Memantine HCl 10 MG TABLET PO (20:45)
[2022-06-08 04:17] VITALS: BP 157/62; PULSE 70; RESP 16; TEMP 36.5; O2SAT 99
--- NOTE | 2022-06-08 07:09 | PC.NURSE ---
Patient slept through the night, no distress observed/reported, medication compliant, behavior pleasant and non concerning, patient is forgetful requiring constant redirection, case management pending placement, patient is not happy to be here expresses her wish to go back to her apartment, VSS, will continue to monitor
[2022-06-08 08:28] VITALS: RESP 16
[2022-06-08] MEDS: Escitalopram Oxalate 5 MG TABLET PO (09:12)
[2022-06-08] MEDS: amLODIPine Besylate 5 MG TABLET PO (09:12)
--- NOTE | 2022-06-08 12:48 | MHC.CM.ED ---
Addendum entered by Carmen Mcdonald 06/08/22 16:20: Patient made aware of court date. Served guardianship/conservator paperwork kept with chart for patient's safety. Original Note: Patient remains in ER BH pod. Court date for guardianship/conservatorship is scheduled for 06/12. Patient already has [facility] safety net. Once court paperwork is completed, continuous churn buttermaker care application will need to be completed. Continue to monitor for d/c needs.
[2022-06-08] MEDS: Memantine HCl 10 MG TABLET PO (20:28)
[2022-06-09 04:51] VITALS: BP 145/63; PULSE 88; RESP 15; TEMP 36.8; O2SAT 98
--- NOTE | 2022-06-09 06:06 | PC.NURSE ---
Patient slept through the night, no distress observed/reported, medication compliant, behavior pleasant and non concerning, patient is forgetful requiring constant redirection, case management pending placement, court date for guardianship is on 06/12/22, patient still expresses her concerns regarding her cats, VSS, will continue to monitor
[2022-06-09] MEDS: amLODIPine Besylate 5 MG TABLET PO (08:22)
[2022-06-09] MEDS: Escitalopram Oxalate 5 MG TABLET PO (08:22)
[2022-06-09 08:26] VITALS: BP 182/90
--- NOTE | 2022-06-09 08:28 | PC.NURSE ---
Patients BP 182/90. JAI Coy made aware. Patient upset about missing her cats at home. Ambulated to bathroom with walker this AM.
[2022-06-09 14:06] VITALS: BP 125/69; PULSE 97; RESP 16; TEMP 36.6; O2SAT 94
[2022-06-09] MEDS: Memantine HCl 10 MG TABLET PO (20:06)
[2022-06-09 20:17] VITALS: BP 118/50; PULSE 67; RESP 18; TEMP 36.7; O2SAT 99
[2022-06-10 05:11] VITALS: BP 140/79; PULSE 75; RESP 15; TEMP 36.7; O2SAT 99
--- NOTE | 2022-06-10 05:28 | PC.NURSE ---
Patient slept through the night, no distress observed/reported, medication compliant, behavior pleasant and non concerning, case management pending placement, court date for guardianship is on 06/12/22, patient still expresses her concerns regarding her cats, VSS, will continue to monitor
[2022-06-10] MEDS: amLODIPine Besylate 5 MG TABLET PO (08:13)
[2022-06-10] MEDS: Escitalopram Oxalate 5 MG TABLET PO (08:13)
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
--- NOTE | 2022-06-10 13:48 | MHC.CM.ED ---
Patient remains in ER BH pod. Guardianship/conservator scheduled for 06/12. Continue to monitor for d/c needs.
[2022-06-10] MEDS: Memantine HCl 10 MG TABLET PO (21:47)
[2022-06-10 21:53] VITALS: BP 144/66; PULSE 81; RESP 14; TEMP 37.1; O2SAT 97
--- NOTE | 2022-06-11 00:09 | PC.NURSE ---
Pt sleeping in no apparent distress. Breaths are even and unlabored with equal chest rises. Will continue to monitor.
--- NOTE | 2022-06-11 02:25 | PC.NURSE ---
Pt sleeping in no apparent distress. Breaths are even and unlabored with equal chest rises. Will continue to monitor.
[2022-06-11 07:25] VITALS: BP 140/67; PULSE 69; RESP 19; TEMP 37.1; O2SAT 98
[2022-06-11] MEDS: amLODIPine Besylate 5 MG TABLET PO (08:09)
[2022-06-11] MEDS: Escitalopram Oxalate 5 MG TABLET PO (08:09)
--- NOTE | 2022-06-11 15:45 | PC.NURSE ---
Pt seen this date for individual OT tx. Pt present bright, alert, and with cheerful affect however states I do miss my cats . Pt engages in multi sensory activity involving auditory, tactile, and visual senses with good effect as noted by elevated mood upon completion of tx.
[2022-06-11 15:56] VITALS: BP 160/66; PULSE 65; RESP 17; TEMP 36.3; O2SAT 100
[2022-06-11] MEDS: Memantine HCl 10 MG TABLET PO (20:03)
[2022-06-11 23:55] VITALS: BP 175/76; PULSE 64; RESP 16; O2SAT 99
--- NOTE | 2022-06-12 07:06 | PC.NURSE ---
patient appears to remain asleep at present respirations are even and unlabored patient appears in no distress
[2022-06-12 07:34] VITALS: BP 165/73; PULSE 76; RESP 16; TEMP 36.8; O2SAT 100
[2022-06-12] MEDS: amLODIPine Besylate 5 MG TABLET PO (09:00)
[2022-06-12] MEDS: Escitalopram Oxalate 5 MG TABLET PO (09:00)
--- NOTE | 2022-06-12 15:19 | MHC.CM.ED ---
Patient remains in ER BH Pod. Court was scheduled for today. The java security engineer did not feel it was appropriate to have a guardianship hearing for patient in court without any family available. Virtual hearing 06/19 via Zoom at 12pm. Patient we be given re-notices and will be asked if she wants to join the virtual court date. Continue to monitor for d/c needs.
--- NOTE | 2022-06-12 15:22 | PC.NURSE ---
Pt seen this date for individual OT tx. Pt provided and receptive to donated clothing and pair of slip on style sneakers. Pt observed and assisted with UB/LB undressing/dressing tasks. Pt requires Santa overall with mod/max verbal cues to maintain attention to task due to high degree of distractibility and tangential speech.
--- NOTE | 2022-06-12 19:30 | PC.NURSE ---
call placed to care team pt is in street cloths and need a order for this to continue.
[2022-06-12] MEDS: Memantine HCl 10 MG TABLET PO (20:28)
[2022-06-13 06:31] VITALS: BP 149/66; PULSE 66; RESP 15; TEMP 36.9; O2SAT 100
--- NOTE | 2022-06-13 07:03 | PC.NURSE ---
Patient slept through the night, no distress observed/reported, medication compliant, behavior pleasant and non concerning, case management pending placement, VSS, will continue to monitor. Patient is her casual cloths and shoes, per report OT approved, charge nurse and security made aware. No answer from charge nurse,matter was passed on day shift RN and MHT.
[2022-06-13] MEDS: amLODIPine Besylate 5 MG TABLET PO (08:13)
[2022-06-13] MEDS: Escitalopram Oxalate 5 MG TABLET PO (08:13)
[2022-06-13 08:55] VITALS: BP 169/78; PULSE 66; RESP 17; TEMP 37; O2SAT 95
--- NOTE | 2022-06-13 08:56 | PC.NURSE ---
while pt was in the bathroom by herself changing out of her normal clothes into hospital attire, pt did fall and was witnessed by this tech from outside of the bathroom looking into the inside bathroom mirror. pt fell backwards on her tailbone and her upper body followed. pt denied hitting her head, denied dizziness, weakness, stated this is the first time I ever fell . vitals are stable, no signs of distress. rn aware.
--- NOTE | 2022-06-13 09:39 | PC.NURSE ---
pt is here as case mgmt, has pending guardianship to be obtained through court system, had planned court date yesterday but was postponed to later date. pt this morning awoke, was still in personal clothes from court date yesterday (allegedly approved by previous shift management/charge?) pt agreeable to change back over into hospital attire, personal belongings placed back into locker without incident. pt ate all of breakfast, took all of hs medications. calm and cooperative, pleasant with this rn in convo.
--- NOTE | 2022-06-13 13:49 | MHC.CM.ED ---
Patient remains in BH pod. Re-notice given and explained to patient. Patient is aware she can participate in zoom court date. Patient expresses she wants to join the court date. Gayla Matias aware and will help patient sign onto zoom court date. Continue to monitor for d/c needs.
--- NOTE | 2022-06-13 13:57 | PC.NURSE ---
DIVINE FROM OT HERE TO COMPLETE TREATMENT, [facility]ING [facility]IVIT[facility], PT AMBULATING USING WALKER WITH STEADY GAIT, ENGAGING APPROPRIATELY AND PLEASANTLY WITH OT.
--- NOTE | 2022-06-13 14:44 | PC.NURSE ---
Pt seen this day for individual OT tx. Pt presents with mild agitation and lamenting about not being able to see her two kitties and Anya. Pt is pleasantly confused and easily re-directed. Her mood quickly sifts to cheerful once engaged in graded painting activity [place] with water . 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 Pt sits quietly in POD milieu wrapped in a warm blanket watching TV at conclusion of tx.
[2022-06-13] MEDS: Memantine HCl 10 MG TABLET PO (20:35)
[2022-06-13 20:46] VITALS: BP 169/74; PULSE 99; RESP 18; TEMP 36.6; O2SAT 99
--- NOTE | 2022-06-13 21:42 | PHA.MEDREC ---
Pharmacy Consult ? Medication Reconciliation Pharmacy has completed the medication reconciliation. Double checked med rec done by nursing
--- NOTE | 2022-06-14 06:29 | PC.NURSE ---
Patient slept through the night, no distress observed/reported, medication compliant, behavior pleasant and non concerning, case management pending placement, VSS, will continue to monitor.
[2022-06-14 06:55] VITALS: BP 129/97; PULSE 73; RESP 15; TEMP 36.9; O2SAT 99
[2022-06-14] MEDS: amLODIPine Besylate 5 MG TABLET PO (08:36)
[2022-06-14] MEDS: Escitalopram Oxalate 5 MG TABLET PO (08:36)
--- NOTE | 2022-06-14 14:44 | PC.NURSE ---
Pt seen this date for individual OT tx. Pt presents with cheerful affect upon approach and seated in bedside chair finishing her afternoon meal. Therapeutic use of self used to elevate/maintain cheerful presentation. Pt is receptive and agreeable to engage in sitting and standing balance activities, (static/dynamic) without use of AD. Pt demos F+/G- static and dynamic seated/standing balance without UB support during ball roll, bounce, and toss activities fluctuating levels of support supervision to cga with no LOB on this date.
[2022-06-14 18:56] VITALS: BP 157/71; PULSE 79; RESP 18; TEMP 36.8; O2SAT 98
[2022-06-14] MEDS: Memantine HCl 10 MG TABLET PO (20:02)
[2022-06-15] MEDS: Acetaminophen 325 MG TABLET 975 MG PO (00:09)
[2022-06-15 00:45] VITALS: BP 190/83; PULSE 67; RESP 15; TEMP 36.4; O2SAT 100
[2022-06-15] MEDS: amLODIPine Besylate 5 MG TABLET PO ×2 (01:09→09:47)
[2022-06-15 06:28] VITALS: BP 150/73
[2022-06-15 06:32] VITALS: BP 150/76; PULSE 62; RESP 15; TEMP 36.7; O2SAT 99
--- NOTE | 2022-06-15 06:37 | PC.NURSE ---
Patient slept through the night, no distress observed/reported, medication compliant, behavior pleasant and non concerning, case management pending placement, VSS, will continue to monitor. Patient's BP was 190/83 @ 0109 which is not consistent with her baseline, provider notified/ordered Amlodipine 5 mg administered at 0109, follow up BP at 627 was 150/76, will continue to monitor
[2022-06-15 09:09] VITALS: BP 166/74; PULSE 68; RESP 15; TEMP 36.8; O2SAT 99
[2022-06-15] MEDS: Escitalopram Oxalate 5 MG TABLET PO (09:46)
--- NOTE | 2022-06-15 12:36 | PC.NURSE ---
Addendum entered by Spencer Robb 06/15/22 15:50: Dr. Oshea aware of BP Original Note: Dr. Oshea aware of patients BP
[2022-06-15 15:47] VITALS: BP 153/67; PULSE 72; RESP 16; TEMP 36.8; O2SAT 99
[2022-06-15] MEDS: Memantine HCl 10 MG TABLET PO (21:35)
[2022-06-15 21:46] VITALS: BP 139/54; PULSE 86; RESP 18; TEMP 37; O2SAT 96
[2022-06-16 05:21] VITALS: BP 116/57; PULSE 67; RESP 16; TEMP 37.2; O2SAT 98
--- NOTE | 2022-06-16 06:04 | PC.NURSE ---
Patient slept through the night, no distress observed/reported, medication compliant, behavior pleasant and non concerning, case management pending placement, VSS, will continue to monitor.
[2022-06-16 07:41] VITALS: BP 120/43; PULSE 64; RESP 19; TEMP 37.1; O2SAT 97
[2022-06-16] MEDS: amLODIPine Besylate 5 MG TABLET PO (08:29)
[2022-06-16] MEDS: Escitalopram Oxalate 5 MG TABLET PO (08:29)
[2022-06-16] MEDS: Memantine HCl 10 MG TABLET PO (21:33)
--- NOTE | 2022-06-17 05:53 | PC.NURSE ---
Patient slept through the night, no distress observed/reported, medication compliant, behavior pleasant and non concerning, case management pending placement, VSS, will continue to monitor.
[2022-06-17 06:43] VITALS: BP 117/64; PULSE 64; RESP 17; TEMP 36.8; O2SAT 97
[2022-06-17 07:49] VITALS: BP 126/61; PULSE 69; RESP 16; TEMP 36.7; O2SAT 99
[2022-06-17] MEDS: Escitalopram Oxalate 5 MG TABLET PO (08:15)
[2022-06-17] MEDS: amLODIPine Besylate 5 MG TABLET PO (08:15)
[2022-06-17 14:16] VITALS: BP 152/71; PULSE 68; RESP 16; TEMP 36.3; O2SAT 97
[2022-06-17] MEDS: Memantine HCl 10 MG TABLET PO (20:27)
[2022-06-17 23:42] VITALS: BP 156/69; PULSE 76; RESP 15; TEMP 36.4; O2SAT 99
--- NOTE | 2022-06-18 05:52 | PC.NURSE ---
Patient slept through the night, up out of room x 2 for bathroom use and back, no distress observed/reported, medication compliant, behavior pleasant and non concerning, case management pending placement, VSS, will continue to monitor.
[2022-06-18 09:39] VITALS: BP 142/68; PULSE 65; RESP 18; TEMP 36.5; O2SAT 98
[2022-06-18] MEDS: amLODIPine Besylate 5 MG TABLET PO (09:47)
[2022-06-18] MEDS: Escitalopram Oxalate 5 MG TABLET PO (09:47)
--- NOTE | 2022-06-18 12:35 | PC.NURSE ---
patient calm and cooperative with care, happy to see Rowan the therapy dog today. ambulating with walker. able to make needs known
--- NOTE | 2022-06-18 15:27 | PC.NURSE ---
Pt seen this date for individual OT tx. Pt presents pleasantly confused, bright, and receptive to engage in sensory craft activity. Pt completes 3/5 water brush images and able to identify 2/5 familiar objects. Pt continues to state that she withes to return home and that she misses her cats however easily reassured and redirected.
[2022-06-18] MEDS: Memantine HCl 10 MG TABLET PO (20:17)
[2022-06-19 00:46] VITALS: BP 181/79; PULSE 70; RESP 15; TEMP 36.7; O2SAT 97
--- NOTE | 2022-06-19 06:21 | PC.NURSE ---
Patient slept through the night, no distress observed/reported, medication compliant, behavior pleasant and non concerning, case management pending placement, no update on placement, VSS, will continue to monitor.
--- NOTE | 2022-06-19 07:26 | PC.NURSE ---
report taken from Todd DUMONT, patient sleeping at this time. Breakfast tray placed in room.
[2022-06-19] MEDS: amLODIPine Besylate 5 MG TABLET PO ×2 (09:42→21:17)
[2022-06-19] MEDS: Escitalopram Oxalate 5 MG TABLET PO (09:42)
[2022-06-19 09:48] VITALS: BP 136/59; PULSE 70; RESP 16; TEMP 36.6; O2SAT 98
--- NOTE | 2022-06-19 13:38 | MHC.CM.ED ---
Addendum entered by Carmen Mcdonald 06/19/22 14:29: Received telephone call from patient's friend, Sara Saucedo, requesting an update. T/W explained guardianship was approved. Sara Saucedo's contact information was provided to Shania, the guardian, so she can reach out with any questions. Original Note: Patient remains in ER BH pod. Guardianship court scheduled for 12pm today. Patient attended virtually with the help of Gayla Matias and Moreno. Guardianship has been granted. Copies of signed paperwork will be provided to [facility] from Robert. Patient has health safety net for insurance. Patient's guardian/conservator, will have to work with [facility] financial counselors to complete LTC [facility] application. Continue to monitor for d/c needs.
--- NOTE | 2022-06-19 15:34 | PC.NURSE ---
Pt seen this date for individual OT intervention. Pt continues to present pleasantly confused and receptive to activities as well as therapeutic use of self stating I like your company . Pt provided with holiday coloring pages, word find, and sticker puzzle activity with good studio receptionist.
[2022-06-19] MEDS: Memantine HCl 10 MG TABLET PO (20:24)
[2022-06-19 20:33] VITALS: BP 199/93; PULSE 83; RESP 18; TEMP 36.6; O2SAT 100
[2022-06-20 01:15] VITALS: BP 175/97; PULSE 92; RESP 16; TEMP 36.4; O2SAT 98
--- NOTE | 2022-06-20 06:32 | PC.NURSE ---
Patient slept through the night, no distress observed/reported, medication compliant, behavior pleasant and non concerning, case management pending placement, no update on placement, VSS, BP at 7 was 199/93, Amlodipine 5 mg administered as ordered, follow up BP was 175/97, will continue to monitor.
[2022-06-20 08:08] VITALS: RESP 13
[2022-06-20 10:54] VITALS: BP 134/63; PULSE 65; RESP 13; TEMP 37.2; O2SAT 99
[2022-06-20] MEDS: Escitalopram Oxalate 5 MG TABLET PO (10:54)
[2022-06-20] MEDS: amLODIPine Besylate 5 MG TABLET PO (10:54)
[2022-06-20] MEDS: Memantine HCl 10 MG TABLET PO (20:38)
[2022-06-21] MEDS: Escitalopram Oxalate 5 MG TABLET PO (08:01)
[2022-06-21] MEDS: amLODIPine Besylate 5 MG TABLET PO (08:01)
[2022-06-21 08:04] VITALS: BP 178/64; PULSE 68; RESP 16; TEMP 37.2; O2SAT 100
--- NOTE | 2022-06-21 08:07 | PC.NURSE ---
Pt offers no complaints. Medicated w/o issue. Vss.
--- NOTE | 2022-06-21 15:10 | PC.NURSE ---
Pt seen this date for individual OT tx. Pt presents with slightly depressed affect however agreeable to engage in sensory craft activity. Pt provided with sensory item with notable good effect as noted by elevated (cheerful), mood. Pt states I'm gong to name her Tootsie! .
[2022-06-21] MEDS: Memantine HCl 10 MG TABLET PO (19:59)
--- NOTE | 2022-06-22 05:20 | PC.NURSE ---
Patient slept through the night, no distress observed/reported, medication compliant, behavior pleasant and non concerning, case management pending placement, VSS, will continue to monitor.
[2022-06-22 07:46] VITALS: BP 152/71; PULSE 72; RESP 12; TEMP 36.9; O2SAT 99
[2022-06-22] MEDS: Escitalopram Oxalate 5 MG TABLET PO (08:55)
[2022-06-22] MEDS: amLODIPine Besylate 5 MG TABLET PO (08:55)
[2022-06-22] MEDS: Memantine HCl 10 MG TABLET PO (20:24)
[2022-06-23 01:31] VITALS: BP 187/96; PULSE 76; RESP 15; TEMP 36.4; O2SAT 99
--- NOTE | 2022-06-23 05:34 | PC.NURSE ---
Patient slept through the night, no distress observed/reported, medication compliant, behavior pleasant and non concerning, case management pending placement, VSS, will continue to monitor.
[2022-06-23] MEDS: Escitalopram Oxalate 5 MG TABLET PO (09:28)
[2022-06-23] MEDS: amLODIPine Besylate 5 MG TABLET PO (09:28)
[2022-06-23 19:38] VITALS: BP 155/67; PULSE 96; RESP 18; TEMP 37; O2SAT 98
[2022-06-23] MEDS: Memantine HCl 10 MG TABLET PO (19:55)
--- NOTE | 2022-06-24 06:23 | PC.NURSE ---
Patient slept through the night, no distress observed/reported, medication compliant, behavior pleasant and non concerning, case management pending placement, VSS, patient is profoundly worried about her cats, will continue to monitor.
[2022-06-24 06:46] VITALS: BP 143/59; PULSE 67; RESP 15; TEMP 36.4; O2SAT 99
[2022-06-24] MEDS: Escitalopram Oxalate 5 MG TABLET PO (10:26)
[2022-06-24] MEDS: amLODIPine Besylate 5 MG TABLET PO (10:26)
[2022-06-24] MEDS: Memantine HCl 10 MG TABLET PO (20:52)
[2022-06-24 21:12] VITALS: BP 120/53; PULSE 65; RESP 18; TEMP 36.8; O2SAT 97
--- NOTE | 2022-06-24 22:11 | PC.NURSE ---
Pt alert and oriented to self and place. Pt medicated as ordered with no issues or concerns. Pt is resting calmly at the bedside in no apparent distress. Asks how her cats are doing.
[2022-06-25 00:22] VITALS: BP 178/62; PULSE 78; RESP 16; TEMP 36.3; O2SAT 97
--- NOTE | 2022-06-25 06:16 | PC.NURSE ---
Patient slept through the night, no distress observed/reported, medication compliant, behavior pleasant and non concerning, case management pending placement, VSS, will continue to monitor.
--- NOTE | 2022-06-25 07:24 | PC.NURSE ---
patient appears to remain asleep at present respirations are even and unlabored patient appears in no distress
[2022-06-25] MEDS: amLODIPine Besylate 5 MG TABLET PO (10:36)
[2022-06-25] MEDS: Escitalopram Oxalate 5 MG TABLET PO (10:36)
--- NOTE | 2022-06-25 15:44 | PC.NURSE ---
Pt seen this date for individual OT tx. Pt continues to present pleasantly confused and easily re-directable. Therapeutic use of self utilized during tx session and pt engages in know card game that pt enjoys. This policy writer sales communicates to POD staff that this in an enjoyable activity for her and if time permitting could someone engage her in this game with focus on maintaining elevated positive mood.
[2022-06-25] MEDS: Memantine HCl 10 MG TABLET PO (19:21)
--- NOTE | 2022-06-26 05:07 | PC.NURSE ---
Patient slept through the night, no distress observed/reported, medication compliant, behavior pleasant and non concerning, patient had a good visit with her friend, case management pending placement, VSS, will continue to monitor.
--- NOTE | 2022-06-26 07:08 | PC.NURSE ---
patient appears to remain asleep at present respirations are even and unlabored patient appears in no distress
[2022-06-26] MEDS: amLODIPine Besylate 5 MG TABLET PO (09:34)
[2022-06-26] MEDS: Escitalopram Oxalate 5 MG TABLET PO (09:34)
--- NOTE | 2022-06-26 10:25 | MHC.CM.ED ---
Patient remains in ER BH pod. Guardianship was approved by the advanced nursing professor. [facility] is just waiting for guardianship paperwork to be provided to the hospital creative lead by the court. Continue to monitor for d/c needs.
[2022-06-26 12:42] VITALS: BP 164/79; PULSE 98; RESP 15; TEMP 36.2; O2SAT 98
--- NOTE | 2022-06-26 15:27 | PC.NURSE ---
Pt seen this date for individual OT tx. Pt found to be tearful with depressed affect and states I miss my cats I think their gonging to be put down . Pt provided with reassurance and consult with POD staff with regard to the welfare of pts cats. Pt received a phone call earlier this day from a friend and misinterpreted information provided during telephone conversation. following reassurance and positive reinforcement pt is agreeable to engage in holiday sensory activity, with good effect noted.
[2022-06-26] MEDS: Memantine HCl 10 MG TABLET PO (20:44)
--- NOTE | 2022-06-27 05:15 | PC.NURSE ---
Patient slept through the night, no distress observed/reported, medication compliant, behavior pleasant and non concerning, patient requesting discharge repeatedly got upset made aware of the plan, case management pending placement, VSS, will continue to monitor.
[2022-06-27] MEDS: amLODIPine Besylate 5 MG TABLET PO (10:15)
[2022-06-27] MEDS: Escitalopram Oxalate 5 MG TABLET PO (10:16)
--- NOTE | 2022-06-27 14:56 | MHC.CM.ED ---
Patient remains in ER BH pod. Guardianship/conservator paperwork obtained from Psych[facility] [place] office. T/W attempted to speak with patient's guardian, Shania Mcwilliams via telephone at [phone]. Left message for return telephone call. Continue to monitor for d/c needs.
--- NOTE | 2022-06-27 15:33 | PC.NURSE ---
Pt seen this date for individual OT tx session. Pt presents bright, alert, and receptive to engaging in OT interventions offered. Pt provided with gentle B UE therapeutic massage, skin, and nail care. Pt reports increased comfort and is grateful for interventions provided. Focus of tx increased overall QOL.
[2022-06-27] MEDS: Memantine HCl 10 MG TABLET PO (21:02)
[2022-06-27 21:12] VITALS: BP 148/55; PULSE 82; RESP 18; TEMP 36.8; O2SAT 98
[2022-06-28 05:27] VITALS: BP 152/74; PULSE 75; RESP 15; TEMP 36.8; O2SAT 98
--- NOTE | 2022-06-28 05:56 | PC.NURSE ---
Patient slept through the night, no distress observed/reported, medication compliant, behavior pleasant and non concerning, case management pending placement, VSS, will continue to monitor.
[2022-06-28 11:14] VITALS: BP 163/72; PULSE 67; RESP 15; TEMP 37.1; O2SAT 100
[2022-06-28] MEDS: amLODIPine Besylate 5 MG TABLET PO (11:15)
[2022-06-28] MEDS: Escitalopram Oxalate 5 MG TABLET PO (11:15)
--- NOTE | 2022-06-28 15:38 | PC.NURSE ---
Pt seen for group intervention with peer currently in POD. Pts engaged in sensory, seasonal activity, and puzzle activity with good effect as noted by elevation in mood laughing and engaging in appropriate socialization with peer. Both pts continue to laugh and socialize with each other at conclusion of group.
[2022-06-28] MEDS: Memantine HCl 10 MG TABLET PO (20:08)
[2022-06-28 20:28] VITALS: BP 152/70; PULSE 81; RESP 18; TEMP 37; O2SAT 99
--- NOTE | 2022-06-29 05:52 | PC.NURSE ---
Patient slept through the night, no distress observed/reported, medication compliant, behavior pleasant and non concerning, mood festive and expansive, case management pending placement, VSS, will continue to monitor.
[2022-06-29 06:35] VITALS: BP 134/59; PULSE 72; RESP 15; TEMP 36.9; O2SAT 96
[2022-06-29 09:41] VITALS: BP 122/58; PULSE 67; RESP 18; TEMP 36.8; O2SAT 98
[2022-06-29] MEDS: amLODIPine Besylate 5 MG TABLET PO (09:47)
[2022-06-29] MEDS: Escitalopram Oxalate 5 MG TABLET PO (09:47)
[2022-06-29] MEDS: Memantine HCl 10 MG TABLET PO (20:59)
[2022-06-29 21:07] VITALS: BP 163/52; PULSE 66; RESP 18; TEMP 36.3; O2SAT 100
[2022-06-30 02:27] VITALS: BP 158/72; PULSE 87; RESP 18; TEMP 36.5; O2SAT 96
--- NOTE | 2022-06-30 06:45 | PC.NURSE ---
Patient slept through the night, no distress observed/reported, medication compliant, behavior pleasant and non concerning, case management pending placement, VSS, will continue to monitor.
--- NOTE | 2022-06-30 06:55 | PC.NURSE ---
patient appears to remain asleep at present respirations are even and unlabored patient appears in no distress
[2022-06-30] MEDS: amLODIPine Besylate 5 MG TABLET PO (11:21)
[2022-06-30] MEDS: Escitalopram Oxalate 5 MG TABLET PO (11:21)
--- NOTE | 2022-06-30 18:40 | PC.NURSE ---
PT IN NAD, RESP EVEN & NONLABOURED. AMBULATORY, INDEPENDENT, ENGAGING IN LIVELY CONVERSATION WITH STAFF.
[2022-06-30] MEDS: Memantine HCl 10 MG TABLET PO (20:53)
--- NOTE | 2022-07-01 06:33 | PC.NURSE ---
Patient slept through the night, no distress observed/reported, medication compliant, behavior pleasant and non concerning, case management pending placement, VSS, will continue to monitor.
[2022-07-01 08:36] VITALS: BP 110/52; PULSE 62; RESP 15; TEMP 36.7; O2SAT 99
[2022-07-01] MEDS: Escitalopram Oxalate 5 MG TABLET PO (08:41)
[2022-07-01] MEDS: amLODIPine Besylate 5 MG TABLET PO (08:41)
--- NOTE | 2022-07-01 16:39 | PC.NURSE ---
edinson, assisted room 6 with changing her linens on the bed, states she wants to contact a nursing project coordinator to get out of here , ambulating with steady gait
[2022-07-01 20:25] VITALS: BP 159/81; PULSE 93; RESP 17; TEMP 36.7; O2SAT 97
[2022-07-01] MEDS: Memantine HCl 10 MG TABLET PO (21:44)
--- NOTE | 2022-07-02 06:26 | PC.NURSE ---
Patient slept through the night, no distress observed/reported, medication compliant, behavior pleasant and non concerning, patient reported upset stomach from over eating made few trips to bathroom but resolved, case management pending placement, VSS, will continue to monitor.
[2022-07-02 06:27] VITALS: BP 116/62; PULSE 81; RESP 17; TEMP 36.9; O2SAT 97
[2022-07-02 10:17] VITALS: BP 119/53; PULSE 73; RESP 17; TEMP 36.9; O2SAT 100
[2022-07-02] MEDS: amLODIPine Besylate 5 MG TABLET PO (10:43)
[2022-07-02] MEDS: Escitalopram Oxalate 5 MG TABLET PO (10:43)
--- NOTE | 2022-07-02 11:28 | PC.NURSE ---
patient alert, oriented x3. calm and cooperative with staff. ambulating with steady gait. able to make needs known.
[2022-07-02 14:48] VITALS: BP 183/75; PULSE 69; RESP 16; O2SAT 98
[2022-07-02] MEDS: Memantine HCl 10 MG TABLET PO (20:12)
[2022-07-02 20:15] VITALS: BP 152/75; PULSE 79; RESP 18; TEMP 36.7; O2SAT 100
[2022-07-03 06:07] VITALS: BP 137/62; PULSE 70; RESP 17; TEMP 36.7; O2SAT 99
--- NOTE | 2022-07-03 06:10 | PC.NURSE ---
Patient slept through the night, no distress observed/reported, medication compliant, behavior pleasant and non concerning, case management pending placement, VSS, will continue to monitor.
[2022-07-03 08:04] VITALS: BP 147/65
[2022-07-03] MEDS: Escitalopram Oxalate 5 MG TABLET PO (08:09)
[2022-07-03] MEDS: amLODIPine Besylate 5 MG TABLET PO (08:09)
--- NOTE | 2022-07-03 12:18 | MHC.CM.ED ---
Radha remains in ER BH pod. T/W spoke with patient's guardian, Shania, via telephone at [phone]. Shania is in the process of obtaining all information needed for patient's [facility] LTC application. Shania will be able to complete and submit patient's application herself. Shania requested copy of patient's demographics information be provided. Sent via email to [email or web address] as requested. Shania is hoping to submit application by the end of the week and will provide CM a copy of the application when it is available. Will wait to make referrals until copy of application is obtained. Continue to monitor for d/c needs.
[2022-07-03] MEDS: Memantine HCl 10 MG TABLET PO (19:47)
[2022-07-03 19:56] VITALS: BP 170/54; PULSE 72; RESP 18; TEMP 36.6; O2SAT 99
[2022-07-04 04:58] VITALS: BP 148/76; PULSE 74; RESP 16; TEMP 36.7; O2SAT 98
--- NOTE | 2022-07-04 05:38 | PC.NURSE ---
Patient slept through the night, no distress observed/reported, medication compliant, behavior pleasant and non concerning, case management pending placement, Shania patient's guardian is in the process of doing LTC application, VSS, will continue to monitor.
[2022-07-04 07:24] VITALS: BP 154/84; PULSE 86; RESP 16; TEMP 36.7; O2SAT 99
[2022-07-04] MEDS: Escitalopram Oxalate 5 MG TABLET PO (08:15)
[2022-07-04] MEDS: amLODIPine Besylate 5 MG TABLET PO (08:15)
[2022-07-04 14:00] VITALS: RESP 16
[2022-07-04] MEDS: Memantine HCl 10 MG TABLET PO (20:15)
--- NOTE | 2022-07-05 04:51 | PC.NURSE ---
Patient slept through the night, no distress observed/reported, medication compliant, behavior pleasant and non concerning, case management pending placement, LTC application by her guardian CHAVEZ Jauregui, will continue to monitor.
[2022-07-05 07:44] VITALS: BP 148/82; PULSE 72; RESP 16; TEMP 36.6; O2SAT 99
[2022-07-05] MEDS: Escitalopram Oxalate 5 MG TABLET PO (07:49)
[2022-07-05] MEDS: amLODIPine Besylate 5 MG TABLET PO (07:49)
--- NOTE | 2022-07-05 07:56 | PC.NURSE ---
pt is a/o x 2 (stated that the yr was 1920) pt speaks in full sentences. ambulate (i) gait steady with walker. pt ate 50% of breakfast. denies any pain/disc. denies any si/hi. pt aware of plan of care.
[2022-07-05 19:32] VITALS: BP 175/76; PULSE 82; RESP 12; TEMP 36.7; O2SAT 99
[2022-07-05] MEDS: Memantine HCl 10 MG TABLET PO (20:30)
--- NOTE | 2022-07-06 04:47 | PC.NURSE ---
Patient slept through the night, no distress observed/reported, medication compliant, behavior pleasant and non concerning, case management pending placement, VSS, will continue to monitor.
[2022-07-06] MEDS: amLODIPine Besylate 5 MG TABLET PO (08:17)
[2022-07-06] MEDS: Escitalopram Oxalate 5 MG TABLET PO (08:17)
[2022-07-06 08:18] VITALS: BP 131/58; PULSE 117; RESP 16; TEMP 37.4; O2SAT 96
--- NOTE | 2022-07-06 08:24 | PC.NURSE ---
Addendum entered by Jyoti Arroyo 07/06/22 18:41: Confirmed w/ Melinda VERGARA to hold tylenol until pt wakes up. Addendum entered by Jyoti Arroyo 07/06/22 09:50: pharmacy contacted to see if patient qualifies for paxlovid. Per pharmacy, med is an outpatient med and is not stocked in pharmacy at [facility]. Med can be rx to outside pharmacy and picked up there and brought to [facility] by family/friends. Should patient become medical, IV rendesmir may be given. notified. Addendum entered by Jyoti Arroyo 07/06/22 09:39: Vidya from notified of Covid + status. Addendum entered by Jyoti Arroyo 07/06/22 09:35: notified of COVID + status. Original Note: During AM VS check, pt reports feeling off . notified. Plan at this time is to recheck UA and COVID/RSV/FLU
[2022-07-06 09:25] LABS: Influenza A PCR NEGATIVE (Negative); Influenza B PCR NEGATIVE (Negative); Resp Syncy Virus RNA Qual PCR NEGATIVE (Negative); SARS COV2 PCR INHOUSE POSITIVE (Negative)
[2022-07-06 14:00] VITALS: RESP 16
[2022-07-06] MEDS: Memantine HCl 10 MG TABLET PO (21:44)
--- NOTE | 2022-07-07 05:37 | PC.NURSE ---
Patient slept through the night, no distress observed/reported, patient is + for Covid, respiration +/=/non-labored bilaterally, medication compliant, behavior pleasant and non concerning, case management pending placement, VSS, will continue to monitor.
[2022-07-07] MEDS: Acetaminophen 325 MG TABLET 975 MG PO (07:27)
[2022-07-07] MEDS: amLODIPine Besylate 5 MG TABLET PO (07:28)
[2022-07-07] MEDS: Escitalopram Oxalate 5 MG TABLET PO (07:28)
--- NOTE | 2022-07-07 07:33 | PC.NURSE ---
alert, states she feels better than yesterday, denies sob, denies body aches but decided to take apap when offered
[2022-07-07 07:45] VITALS: BP 102/63; PULSE 85; RESP 18; TEMP 36.8; O2SAT 99
--- NOTE | 2022-07-07 15:08 | PC.NURSE ---
Addendum entered by Olivia Zimmerman RN 07/07/22 18:44: report given to JULIA Brooks Original Note: report received from JULIA Parnell pt appears asleep no signs of acute distress notice breathing equally unlabored close monitoring maintained
[2022-07-07] MEDS: Memantine HCl 10 MG TABLET PO (20:11)
[2022-07-07 20:36] VITALS: BP 151/74; PULSE 92; RESP 20; TEMP 36.3; O2SAT 98
[2022-07-08 09:26] VITALS: BP 120/55; PULSE 82; RESP 15; TEMP 37.7; O2SAT 95
[2022-07-08] MEDS: amLODIPine Besylate 5 MG TABLET PO (09:35)
[2022-07-08] MEDS: Escitalopram Oxalate 5 MG TABLET PO (09:35)
[2022-07-08 14:42] VITALS: BP 150/61; PULSE 93; RESP 17; TEMP 37; O2SAT 94
--- NOTE | 2022-07-08 16:15 | MHC.CM.ED ---
Addendum entered by Kristy Aguirre 07/08/22 16:17: Of note, pt is COVID + as of 07/06 but is stable and offers no complaints at this time Original Note: Pt continues boarding for LTC placement: Payor source presently being obtained. Pt has a legal guardian/conservator appointed by the court. It is expected that the status of pt's [facility] will be updated this week after the holiday break.
[2022-07-08] MEDS: Memantine HCl 10 MG TABLET PO (19:55)
[2022-07-09 03:11] VITALS: BP 148/60; PULSE 87; RESP 16; TEMP 37.1; O2SAT 95
--- NOTE | 2022-07-09 07:52 | PC.NURSE ---
patient appears to remain at rest at present respirations are even and inlabored patient appears in no distress
[2022-07-09] MEDS: amLODIPine Besylate 5 MG TABLET PO (08:21)
[2022-07-09] MEDS: Escitalopram Oxalate 5 MG TABLET PO (08:21)
[2022-07-09 13:13] VITALS: BP 149/108; PULSE 78; RESP 15; TEMP 37.6; O2SAT 96
--- NOTE | 2022-07-09 13:31 | MHC.CM.ED ---
Patient remains in ER BH pod. Found to be positive for Covid on 07/06. Does not meet admission criteria at this time. Continue to monitor for d/c needs.
[2022-07-09] MEDS: Memantine HCl 10 MG TABLET PO (20:11)
[2022-07-10] MEDS: amLODIPine Besylate 5 MG TABLET PO (13:32)
[2022-07-10] MEDS: Escitalopram Oxalate 5 MG TABLET PO (13:32)
[2022-07-10 15:38] VITALS: BP 139/75; PULSE 82; RESP 16; TEMP 37.1; O2SAT 99
--- NOTE | 2022-07-10 15:39 | PC.NURSE ---
Report from Jessie RN, pt awake and ambulatory. Resp reg and even, NAD. Calm and cooperative.
--- NOTE | 2022-07-10 16:44 | MHC.CM.ED ---
Patient remains in ER BH Pod. [employer] application and supporting documents were submitted to [employer] on 07/06 by patient's guardian, Shania. Referral sent to [facility] at Shania's request. Continue to monitor for d/c needs.
[2022-07-10] MEDS: Memantine HCl 10 MG TABLET PO (19:46)
[2022-07-11 01:42] VITALS: BP 185/82; PULSE 67; RESP 16; TEMP 36.3; O2SAT 98
[2022-07-11] MEDS: amLODIPine Besylate 5 MG TABLET PO (07:44)
[2022-07-11] MEDS: Escitalopram Oxalate 5 MG TABLET PO (07:44)
[2022-07-11 07:50] VITALS: BP 173/56; PULSE 68; RESP 16; TEMP 36.6; O2SAT 100
[2022-07-11] MEDS: Memantine HCl 10 MG TABLET PO (19:50)
[2022-07-11 20:17] VITALS: BP 141/84; PULSE 60; RESP 20; TEMP 36.6; O2SAT 98
[2022-07-12 05:01] VITALS: BP 148/80; PULSE 70; RESP 15; TEMP 37.2; O2SAT 100
[2022-07-12 05:30] LABS: COVID-19 Test Positive (Negative); IDNOW Serial# 6674DD1D
[2022-07-12] MEDS: Escitalopram Oxalate 5 MG TABLET PO (10:36)
[2022-07-12 10:39] VITALS: BP 102/49; PULSE 65; RESP 16; TEMP 37.6; O2SAT 98
--- NOTE | 2022-07-12 15:20 | MHC.CM.ED ---
[facility] conde [facility] is still reviewing [facility] application. [facility] doesn't have a bed. Continue to monitor for d/c needs.
[2022-07-12] MEDS: Memantine HCl 10 MG TABLET PO (20:16)
[2022-07-12 20:21] VITALS: BP 148/69; PULSE 69; RESP 18; TEMP 36.9; O2SAT 98
[2022-07-13 05:18] VITALS: BP 180/88; PULSE 66; RESP 15; TEMP 37.4; O2SAT 99
[2022-07-13 07:50] VITALS: BP 169/72; PULSE 69; RESP 16
[2022-07-13] MEDS: amLODIPine Besylate 5 MG TABLET PO (08:00)
[2022-07-13] MEDS: Escitalopram Oxalate 5 MG TABLET PO (08:00)
--- NOTE | 2022-07-13 08:03 | PC.NURSE ---
Pt is alert and awake. At breakfast, accepted AM meds. forgetful, pleasant. Smiling with this RN.
--- NOTE | 2022-07-13 11:41 | MHC.EDTECH ---
ATTN: CASE MANAGEMENT Vasquez Anand is a neighbor and fellow member of [facility]'s condo association. He is inquiring about her condo and what happens going forward. He was looking to speak with someone. No one was available to speak with in the ED bubble. If someone could follow up with him and the questions he has.
[2022-07-13] MEDS: Memantine HCl 10 MG TABLET PO (20:13)
[2022-07-14 04:01] VITALS: BP 152/72; PULSE 82; RESP 17; TEMP 37.6; O2SAT 98
--- NOTE | 2022-07-14 08:02 | PC.NURSE ---
Pt resting quietly in her room, eating her breakfast. Calm and cooperative, NAD.
[2022-07-14 08:49] VITALS: BP 135/58; PULSE 64; RESP 16; TEMP 37.1; O2SAT 98
[2022-07-14] MEDS: Escitalopram Oxalate 5 MG TABLET PO (08:52)
[2022-07-14] MEDS: amLODIPine Besylate 5 MG TABLET PO (08:52)
--- NOTE | 2022-07-14 13:53 | MHC.CM.ED ---
Patient remains in ER BH pod. Patient tested positive for Covid on 07/06. Referrals made to [facility] and [facility]. No beds are available at these facilities. T/W reached out to Shania, patient's guardianship, for other facility choices. Referrals amde to [facility], [facility], [place] and [facility]. Continue to monitor for d/c needs.
[2022-07-14 16:49] VITALS: BP 143/56; PULSE 68; RESP 16; TEMP 36.6; O2SAT 99
[2022-07-14] MEDS: Memantine HCl 10 MG TABLET PO (19:54)
--- NOTE | 2022-07-15 05:48 | PC.NURSE ---
Patient slept through the night, no distress observed/reported, patient is day 8 for + for Covid, respiration +/=/non-labored bilaterally, medication compliant, behavior pleasant and non concerning, case management pending placement, VSS, will continue to monitor.
[2022-07-15 10:02] VITALS: BP 140/56; PULSE 56; RESP 16; TEMP 36.7; O2SAT 98
[2022-07-15] MEDS: Escitalopram Oxalate 5 MG TABLET PO (10:16)
[2022-07-15] MEDS: amLODIPine Besylate 5 MG TABLET PO (10:16)
[2022-07-15] MEDS: Memantine HCl 10 MG TABLET PO (19:49)
[2022-07-16 00:20] VITALS: BP 147/66; PULSE 62; RESP 15; TEMP 36.9; O2SAT 100
[2022-07-16 06:02] VITALS: BP 166/82; PULSE 68; RESP 15; TEMP 36.8; O2SAT 100
[2022-07-16 06:19] LABS: Glucose, Whole Blood 79 mg/dL (60-115)
--- NOTE | 2022-07-16 06:29 | PC.NURSE ---
Patient slept through the night, no distress observed/reported except in the morning reported dizziness POC at 0614 was 79, VS at baseline, currently in room drinking coffee, disposition is case management placement, no update on placement so far, medication, behavior super pleasant and compliant, will continue to monitor.
[2022-07-16] MEDS: amLODIPine Besylate 5 MG TABLET PO (09:10)
[2022-07-16] MEDS: Escitalopram Oxalate 5 MG TABLET PO (09:11)
[2022-07-16 09:17] VITALS: BP 128/70; PULSE 86; RESP 16; TEMP 37; O2SAT 95
--- NOTE | 2022-07-16 14:34 | PC.NURSE ---
Pt seen this date for individual OT tx. Pt is no longer on COVID precautions as of this date and presents asymptomatic. Pt found to be pleasantly confused, bright, alert, and agreeable to engage in individual tx with this technical writer and editor. Pt engages in highly graded memory activity. Pt is able to appropriately identify familiar animals and match them successfully with card face visible at all times and cues to visually scan all columns to find the mate. Pt remains with level mood with no known notable adverse behaviors.
[2022-07-16] MEDS: Memantine HCl 10 MG TABLET PO (21:26)
[2022-07-16 21:39] VITALS: BP 143/62; PULSE 62; RESP 18; TEMP 36.7; O2SAT 98
--- NOTE | 2022-07-16 21:49 | MHC.CM.ED ---
No bed offers obtained. Referral sent within 50 miles, instate. Should be covid recovered 07/17. CM to monitor for d/c planning
--- NOTE | 2022-07-17 06:18 | PC.NURSE ---
Patient slept though the night, no distress observed/reported, patient completed quarantine protocol for covid, behavior pleasant and non concerning, case management LTC bed search, no update so far, VSS, medication compliant, appetite good, elimination intact, ambulation intact, will continue to monitor
[2022-07-17 06:40] VITALS: BP 147/64; PULSE 56; RESP 15; TEMP 36.7; O2SAT 100
[2022-07-17] MEDS: Escitalopram Oxalate 5 MG TABLET PO (08:27)
[2022-07-17] MEDS: amLODIPine Besylate 5 MG TABLET PO (08:28)
--- NOTE | 2022-07-17 09:06 | MHC.CM.ED ---
Patient remains in ER. Still looking for LTC placement under [facility] pending. Patient will be considered covid recovered on 07/18. Referral resent to original facility choices of guardian: [facility] [place], [facility]ov[facility] Bat[facility], [facility] and [facility]. Referral also rebroadcasted within 50 miles. A total of 78 referrals made. Continue to monitor for d/c needs.
--- NOTE | 2022-07-17 13:18 | MHC.CM.ED ---
[facility] is able to offer a bed. T/W spoke with patient's guardian, Shania, via telephone. Shania agreeable to transfer. Patient will leave [facility] at 230pm. Patient, Tosin Jauregui RN and Pham VERGARA aware. Continue to monitor for d/c needs.
--- NOTE | 2022-07-17 14:21 | PC.NURSE ---
Pt seen this date for individual OT tx. Pt continues to present pleasantly confused with cheerful affect. Pt is happily agrees to engage in bilateral hand therapeutic massage and joint mobility as well as nail care provided with focus on fostering good hand/nail hygiene as well as overall QOL. Per pts attending nurse pt has been approved for new disposition and will be discharging to (SNF) [facility] later this day.
== END 2022-07-17 14:45 ==
PROVIDERS: Emergency Medicine; Physician Assistant Medical; Social Worker; Student in an Organized Health Care Education/Training Program; Emergency Provider Emergency Medicine Emergency Medical Services; PCP Internal Medicine
DX: U07.1 COVID-19 (principal); R41.82 Altered mental status, unspecified; R00.0 Tachycardia, unspecified; F03.90 Unspecified dementia, unspecified severity, without behavioral disturbance, psychotic disturbance, mood disturbance, and anxiety; I10 Essential (primary) hypertension; R47.9 Unspecified speech disturbances; R26.81 Unsteadiness on feet; Z87.891 Personal history of nicotine dependence; Z79.899 Other long term (current) drug therapy
CPT/HCPCS: 0241U; 36415; 70450; 80053; 80307; 81001; 82140; 82652; 82947; 83970; 85025; 87635; 93005; 97161; 97166; 99285

== ENCOUNTER 2023-01-25 18:26 | Emergency (ER) | payer MEDICARE, SELFPAY ==
[2023-01-25 18:38] VITALS: BP 160/83; BP 173/76; PULSE 74; PULSE 84; RESP 16; TEMP 36.9; O2SAT 96; O2SAT 97; BMI 23.8
--- NOTE | 2023-01-25 18:52 | PC.NURSE ---
pt arrived via ems from [facility] (rehab) she was found on the floor and her roommate reported that she did not fall. Per facility this is unusual behavior because she is independent. Pt has dementia, A&O x3, feels dizzy but not as bad as before . Pt has a 18 in her L forearm.
[2023-01-25 20:08] VITALS: BP 171/65; PULSE 79; RESP 14; TEMP 36.7; O2SAT 96
[2023-01-25 20:18] LABS: MANUAL DIFF FLAG NO
[2023-01-25 20:22] LABS: Appearance Urine Clear; Basophils Absolute Auto 0.1 X10*3/uL (0.0-0.2); Basophils Percent Auto 1.1 % (0-2); Color Urine Yellow; Eosinophils Absolute Auto 0.7 X10*3/uL (0.0-0.4); Eosinophils Percent Auto 10.4 % (0-4); Glucose Urine UA Negative (Negative); Hemoglobin 11.5 g/dl (12.0-16.0); Imm Gran Abs Auto 0.02 X10*3/uL (0.00-0.03); Imm Gran Pct Auto 0.3 % (0.0-0.4); Leukocyte Esterase Urine Negative (Negative); Lymphocytes Absolute Auto 1.9 X10*3/uL (1.2-4.9); Lymphocytes Percent Auto 27.9 % (20-40); Mean Corpuscular HGB Conc 32.9 g/dl (31.0-35.0); Mean Corpuscular Hemoglobin 28.3 pg (27.0-33.0); Mean Platelet Volume 9.6 fL (9.4-12.3); Monocytes Absolute Auto 0.4 X10*3/uL (0.1-1.2); Neutrophils Absolute Auto 3.6 x10*3/uL (2.0-8.3); Neutrophils Percent Auto 54.3 % (45-73); Nitrite Urine Negative (Negative); PH 6.5 (5.0-9.0); Platelet Count 245 X10*3/uL (160-400); Red Blood Count 4.07 X10*6/uL (4.20-5.50); Urine Blood Negative (Negative); Urine Ketones Negative (Negative); Urine Protein Negative (Neg-Trace); White Blood Count 6.7 X10*3/uL (4.8-10.8)
[2023-01-25 20:36] LABS: Alanine Aminotransferase 13 U/L (0-31); Albumin Level 3.7 g/dL (3.5-5.0); Alkaline Phosphatase 77 U/L (39-117); Anion Gap 10 (12-20); Aspartate Amino Transferase 15 U/L (5-31); Bilirubin Total 0.3 mg/dL (0.0-1.0); Blood Urea Nitrogen 17 mg/dL (9-16); Calcium 10.2 mg/dL (8.4-10.2); Carbon Dioxide 28 mmol/L (22-29); Chloride 106 mmol/L (96-108); Creatinine Clr Calc Pharmacy 47.9; Estimated Glomerular Filt Rate > 60; Glucose Random 94 mg/dL (60-115); Potassium 4.4 mmol/L (3.3-5.1); Sodium 140 mmol/L (135-145); Total Protein 6.8 g/dL (6.5-8.0)
--- NOTE | 2023-01-25 21:14 | PC.NURSE ---
RLE chronic wound. no drainage noted. 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 denies recent trauma. A/O x4. no distress. waiting for ed provider.
--- NOTE | 2023-01-25 21:25 | ED.DIZZY ---
HPI - Dizziness General Chief Complaint: Dizziness Stated Complaint: fall Time Seen by Provider: 01/25/23 21:24 Source: patient, EMS and RN notes reviewed Mode of arrival: EMS Limitations: no limitations History of Present Illness HPI Narrative: patient with history of dementia Rosa x2-3 came from rehab as she was sitting on the ground as was not feeling good no fall no abdominal pain no nausea no vomiting. Does have history of dementia patient ambulatory in the ER no headache no chest pain or palpitation Related Data Home Medications Medication Instructions Recorded Confirmed amlodipine 5 mg tablet 1 tab PO DAILY 05/30/22 05/30/22 citalopram 10 mg tablet 1 tab PO DAILY 05/30/22 05/30/22 memantine 10 mg tablet 1 tab PO QPM 05/30/22 05/30/22 Allergies Allergy/AdvReac Type Severity Reaction Status Date / Time penicillin G [PENICILLIN G] Allergy Unknown ITCHING Verified 03/06/22 10:07 penicillin V Allergy Unknown itching Verified 03/06/22 10:07 smoke Allergy Unknown sick to Uncoded 03/06/22 10:07 her stomach Review of Systems Review of Systems: Yes all other systems are reviewed and are negative [facility] Past Medical History Medical History Annual physical exam Anxiety Dementia GERD (gastroesophageal reflux disease) History of depression HTN (hypertension) Hyperlipidemia Near syncope Osteopenia Vitamin D deficiency Family History Family History Mother Abusive behavior Social History Social History Housing: House Alcohol intake: never Patient Tobacco Use Status: Former Tobacco user Smoked in Last 30 Days: No e-Cigarette/Vaping Use: Never Used Use of substances other than those prescribed or required for medical reasons: No Advance Directives: No Advance Directives Information Provided: Yes Current occupational status: retired Cognitive needs: No Hearing needs: No Vision needs: Yes Physical Exam Vital Signs: Vital Signs: Last Vital Signs Temp 98.1 F 01/25/23 20:08 Pulse 79 01/25/23 20:08 Resp 14 01/25/23 20:08 BP 171/65 H 01/25/23 20:08 Pulse Ox 96 01/25/23 20:08 O2 Del Method Room Air 01/25/23 20:08 BMI result Body Mass Index 23.8 Appearance: Alert. Oriented X2. No acute distress. Eyes: PERRLA, No Nystagmus ENT: Pharynx normal. Oral Mucosa moist Neck: Normal inspection. Neck supple. CVS: Normal heart rate and rhythm. Pulses normal. Respiratory: No respiratory distress. Equal air entry bilateral, no wheezing/rales/rhonchi Abdomen: Soft and nontender. Bowel sounds are present, no mass palpable, no CVA tenderness Skin: Skin warm and dry. Normal skin color. Normal skin turgor. Extremities: No lower extremity edema. No calf tenderness Neuro: Oriented X 2. No motor deficit. No sensory deficit.No cerebellar signs , cranial nerves II-XII intact Medical Decision Making Lab Data 01/25/23 20:13 01/25/23 20:13 Labs: Lab Results 01/25/23 01/25/23 01/25/23 Range/Units 20:13 20:13 20:13 WBC 6.7 (4.8-10.8) X10*3/uL RBC 4.07 L (4.20-5.50) X10*6/uL Hgb 11.5 L (12.0-16.0) g/dl Hct 35.0 L (37.0-47.0) % MCV 86.0 (80.0-98.0) fL MCH 28.3 (27.0-33.0) pg MCHC 32.9 (31.0-35.0) g/dl RDW 13.0 (11.0-16.0) % Plt Count 245 (160-400) X10*3/uL MPV 9.6 (9.4-12.3) fL Immature Gran % (Auto) 0.3 (0.0-0.4) % Neut % (Auto) 54.3 (45-73) % Lymph % (Auto) 27.9 (20-40) % [place] % (Auto) 6.0 (2-11) % Eos % (Auto) 10.4 H (0-4) % Baso % (Auto) 1.1 (0-2) % Lymph # (Auto) 1.9 (1.2-4.9) X10*3/uL [place] # (Auto) 0.4 (0.1-1.2) X10*3/uL Eos # (Auto) 0.7 H (0.0-0.4) X10*3/uL Baso # (Auto) 0.1 (0.0-0.2) X10*3/uL Abs Immat Gran (auto) 0.02 (0.00-0.03) X10*3/uL Absolute Neuts (auto) 3.6 (2.0-8.3) x10*3/uL Absolute Nucleated RBC 0.000 (0.0-0.012) X10*3/uL Nucleated RBC % (auto) 0.0 (0.0-0.2) /100WBC Sodium 140 (135-145) mmol/L Potassium 4.4 (3.3-5.1) mmol/L Chloride 106 (96-108) mmol/L Carbon Dioxide 28 (22-29) mmol/L Anion Gap 10 L (12-20) BUN 17 H (9-16) mg/dL Creatinine 0.78 (0.5-1.4) mg/dL Estim Creat Clear Calc 47.9 Estimated GFR > 60 Random Glucose 94 (60-115) mg/dL Calcium 10.2 (8.4-10.2) mg/dL Total Bilirubin 0.3 (0.0-1.0) mg/dL AST 15 (5-31) U/L ALT 13 (0-31) U/L Alkaline Phosphatase 77 (39-117) U/L Total Protein 6.8 (6.5-8.0) g/dL Albumin 3.7 (3.5-5.0) g/dL Urine Color Yellow Urine Appearance Clear Urine pH 6.5 (5.0-9.0) Ur Specific [place] 1.020 (1.005-1.025) Urine Protein Negative (Neg-Trace) mg/dL Urine Glucose (UA) Negative (Negative) mg/dL Urine Ketones Negative (Negative) mg/dL Urine Blood Negative (Negative) Urine Nitrite Negative (Negative) Ur Leukocyte Esterase Negative (Negative) Discharge Plan Discharge Clinical Impression: Dementia Patient Disposition: Xfer SNF Instructions: Dementia (ED) Additional Instructions: continue medication as prescribed follow with PCP Prescriptions: No Action citalopram 10 mg tablet 1 tab PO DAILY amlodipine 5 mg tablet 1 tab PO DAILY memantine 10 mg tablet 1 tab PO QPM Interventions: ED Discharge Assessment Last Done: 01/25/23 22:24 Discharge Date/Time: 01/25/23 22:25
--- NOTE | 2023-01-25 22:07 | PC.NURSE ---
Report called to facility RN. Pt with EMS at this time
== END 2023-01-25 22:25 | disposition skilled nursing facility (03) ==
PROVIDERS: Emergency Provider Internal Medicine
DX: F03.90 Unspecified dementia, unspecified severity, without behavioral disturbance, psychotic disturbance, mood disturbance, and anxiety (principal); I10 Essential (primary) hypertension; E78.5 Hyperlipidemia, unspecified; Z79.899 Other long term (current) drug therapy
CPT/HCPCS: 36415; 80053; 81003; 85025; 99283; 99284

== ENCOUNTER 2025-03-02 10:12 | Emergency (ER) | payer MEDICARE, MEDICAID, SELFPAY ==
[2025-03-02 10:17] VITALS: BP 124/78; BP 146/74; PULSE 61; PULSE 88; RESP 17; TEMP 36.4; O2SAT 95; O2SAT 99; BMI 25.5
[2025-03-02 10:59] LABS: MANUAL DIFF FLAG NO
[2025-03-02 11:00] LABS: Hematocrit 32.3 % (37.0-47.0); Hemoglobin 10.5 g/dl (12.0-16.0); Imm Gran Abs Auto 0.01 X10*3/uL (0.00-0.03); Imm Gran Pct Auto 0.2 % (0.0-0.4); Lymphocytes Absolute Auto 1.4 X10*3/uL (1.2-4.9); Mean Corpuscular HGB Conc 32.5 g/dl (31.0-35.0); Mean Corpuscular Hemoglobin 27.9 pg (27.0-33.0); Mean Corpuscular Volume 85.9 fL (80.0-98.0); NRBC Abs Auto 0.000 X10*3/uL (0.0-0.012); NRBC Pct Auto 0.0 /100WBC (0.0-0.2); Platelet Count 196 X10*3/uL (160-400); Red Blood Count 3.76 X10*6/uL (4.20-5.50); White Blood Count 5.1 X10*3/uL (4.8-10.8)
[2025-03-02 11:06] LABS: Appearance Urine Clear; Glucose Urine UA Negative (Negative); PH 7.5 (5.0-9.0); Specific Gravity - Urine 1.015 (1.005-1.025); UMIC TRIGGER UACC YES
[2025-03-02 11:18] LABS: Alanine Aminotransferase 9 U/L (0-31); Albumin Level 3.9 g/dL (3.5-5.0); Alkaline Phosphatase 67 U/L (39-117); Anion Gap 11 (12-20); Aspartate Amino Transferase 19 U/L (5-31); Blood Urea Nitrogen 18 mg/dL (9-16); Calcium 9.4 mg/dL (8.4-10.2); Carbon Dioxide 28 mmol/L (22-29); Chloride 100 mmol/L (96-108); Creatinine Clr Calc Pharmacy 46.2; Estimated Glomerular Filt Rate > 60; Magnesium 1.9 mg/dL (1.6-2.6); Other Crystals Urine Present; Potassium 4.7 mmol/L (3.3-5.1); Sodium 134 mmol/L (135-145); Total Protein 6.5 g/dL (6.5-8.0)
--- OUTSIDE RECORDS SUMMARY | 2025-03-02 12:16 | XMS_ITS | Encounter Summary ---
Author Organization [employer] Address [address] [place] [address] Care Team Providers Care Bark Spudder Name Role Phone Sara Tomlin MD Primary Care Provider + Encounter Details Date Type Department Care Team (Late st Contact Info) Description 08/26/2024 Lab Requisition [facility] - Main Lab [address] [place] [address] Sara Tomlin MD 819 [facility] 1 [place], [place] [id number] Cough, unspecified; Fever, unspecified; Nasal congestion Social History Tobacco Use Types Packs/Day Years Used Date Smoking Tobacco: Never Assessed Comments Unknown Sex and Gender Information Value Date Recorded Sex Assigned at Not on file Legal Sex Female 8:18 PM EST Gender Identity Not on file Sexual Orientation Not on file documented as of this encounter Plan of Treatment Not on file documented as of this encounter Procedures Procedure Name Priority Date/Time Associated Diagnosis Comments [id number], RSV, FLU A AND B QUALITATIVE RT-PCR, LOCAL REFERENCE LAB Routine 08/25/2024 9:00 AM EST Cough, unspecified Fever, unspecified Nasal congestion documented in this encounter Results * [id number], RSV, Influenza A and B qualitative RT-PCR (08/25/2024 9:00 AM EST) SARS COV-2 Not Detected Not Detected LAB MOLECULAR DIAGNOSTICS METHOD 08/26/2024 10:20 AM EST [facility] ([facility] Comment: Disclaimer: The manner in which this information is used to guide patient care is the responsibility of the healthcare provider. Testing was performed using the [employer] PharmaniProtoStar m SARS-CoV-2 test. This test has been authorized by FDA under an Emergency Use Authorization (EUA). This test is only authorized for the duration of time the declaration that circumstances exist justifying the authorization of the emergency use of in vitro diagnostic tests for detection of SARS-CoV-2 virus and/or diagnosis of COVID-19 infection under section 564(b)(1) of the Act, 21 U.S.C. 360bbb- 3(b)(1), unless the authorization is terminated or revoked sooner. Fact sheet for Healthcare Providers can be found at: https://www.fda.gov/media/526530/download Fact sheet for Patients can be found at: https://www.fda.gov/media/986727/download Influenza A PCR Not Detected Not Detected LAB MOLECULAR DIAGNOSTICS METHOD 08/26/2024 10:20 AM EST [facility] Influenza B PCR Not Detected Not Detected LAB MOLECULAR DIAGNOSTICS METHOD 08/26/2024 10:20 AM EST [facility] RSV PCR Not Detected Not Detected LAB MOLECULAR DIAGNOSTICS METHOD 08/26/2024 10:20 AM EST [facility] Swab Nasopharyngeal structure / Unknown Non-blood Collection / Unknown 08/25/2024 9:00 AM EST 08/26/2024 7:08 AM EST Sara Tomlin MD LAB MICROBIOLOGY - GENER AL ORDERABLES Final Result Performing Organization Address City/State/[facility] Co de Phone Number [facility] [address] [place] [address], documented in this encounter Visit Diagnoses Diagnosis Cough, unspecified Fever, unspecified Nasal congestion Other diseases of nasal cavity and sinuses documented in this encounter Additional Health Concerns Infection Onset Date Last Indicated Resolved Time Respiratory Rule-Out 08/26/2024 08/25/2024 025 10:20 AM EST documented as of this encounter Care Teams Bark Spudder Relationship Specialty Start Date End Date Sara Tomlin MD [address] [place] [phone] PCP - General Family Medicine 08/26/24 documented as of this encounter
--- OUTSIDE RECORDS SUMMARY | 2025-03-02 12:16 | XMS_ITS | Encounter Summary ---
Author Organization [employer] Address [address] [place] [address] Care Team Providers Care Potline Monitor Name Role Phone Sara Tomlin MD Primary Care Provider + Encounter Details Date Type Department Care Team (Late st Contact Info) Description 11/11/2024 Lab Requisition [facility] - Main Lab 299 [facility] [place] [address] Sara Tomlin MD 819 [facility] 1 [place], [place] [phone] Altered mental status, unspecified; Essential (primary) hypertension; Urinary tract infection, site not specified Social History Tobacco Use Types Packs/Day Years [...] Procedure Name Priority Date/Time Associated Diagnosis Comments COMPLETE BLOOD COUNT Routine 11/11/2024 7:57 AM EDT Altered mental status, unspecified Essential (primary) hypertension Urinary tract infection, site not specified AMMONIA Routine 11/11/2024 7:57 AM EDT Altered mental status, unspecified Essential (primary) hypertension Urinary tract infection, site not specified BASIC METABOLIC PANEL Routine 11/11/2024 7:57 AM EDT Altered mental status, unspecified Essential (primary) hypertension Urinary tract infection, site not specified documented in this encounter Results * Ammonia (11/11/2024 7:57 AM EDT) Ammonia 19 11 - 35 mcmol/L LAB CHEMISTRY METHOD 11/11/2024 9:06 AM [facility] Blood Venous blood specimen / Unknown Venipuncture / Unknown 11/11/2024 7:57 AM EDT 11/11/2024 8:35 AM EDT us Sara Tomlin MD LAB BLOOD ORDERABLES Fin al Result [facility] [address] [place] [address], [place] [phone] * (ABNORMAL) Basic metabolic panel (11/11/2024 7:57 AM EDT) Sodium 139 133 - 145 mmol/L LAB CHEMISTRY METHOD 11/11/2024 9:20 AM [facility] Potassium 4.0 3.5 - 5.5 mmol/L LAB CHEMISTRY METHOD 11/11/2024 9:20 AM [facility] Chloride 106 96 - 110 mmol/L LAB CHEMISTRY METHOD 11/11/2024 9:20 AM [facility] CO2 29 21 - 32 mmol/L LAB CHEMISTRY METHOD 11/11/2024 9:20 AM [facility] Anion Gap 4 3 - 11 LAB CHEMISTRY METHOD 11/11/2024 9:20 AM [facility] Glucose 116(H) 70 - 100 mg/dL LAB CHEMISTRY METHOD 11/11/2024 9:20 AM [facility] BUN 19 5 - 25 mg/dL LAB CHEMISTRY METHOD 11/11/2024 9:20 AM [facility] Creatinine 0.88 0.50 - 1.10 mg/dL LAB CHEMISTRY METHOD 11/11/2024 9:20 AM [facility] eGFR 65 >=60 mL/min/1. 73m2 LAB CHEMISTRY METHOD 11/11/2024 9:20 AM [facility] Comment:Calculation based on the Chronic Kidney Disease Epidemiology Collaboration (CKD-EPI) equation refit without adjustment for race. BUN/Creatinine Ratio 21.6 LAB CHEMISTRY METHOD 11/11/2024 9:[address] [facility] Calcium 9.9 8.5 - 10.5 mg/dL LAB CHEMISTRY METHOD 11/11/2024 9:[address] [facility] Blood Venous blood specimen / Unknown Venipuncture / Unknown 11/11/2024 7:57 AM EDT 11/11/2024 8:35 AM EDT us Sara Tomlin MD LAB BLOOD ORDERABLES Fin al Result [facility] [address] [place] [address], * (ABNORMAL) Complete blood count (11/11/2024 7:57 AM EDT) WBC 5.2 4.8 - 10.8 K/mcL LAB HEMETOLOGY METHOD 11/11/2024 8:[address] [facility] RBC 3.70(L) 3.80 - 4.80 M/mcL LAB HEMETOLOGY METHOD 11/11/2024 8:[address] [facility] Hemoglobin 10.2(L) 11.5 - 16.0 g/dL LAB HEMETOLOGY METHOD 11/11/2024 8:[address] [facility] Hematocrit 32.3(L) 35.0 - 47.0 % LAB HEMETOLOGY METHOD 11/11/2024 8:[address] [facility] MCV 88.3 79.0 - 98.0 FL LAB HEMETOLOGY METHOD 11/11/2024 8:[address] [facility] MCH 27.9 27.0 - 32.0 pcg LAB HEMETOLOGY METHOD 11/11/2024 8:[address] [facility] MCHC 31.6(L) 32.0 - 37.0 g/dL LAB HEMETOLOGY METHOD 11/11/2024 8:[address] [facility] RDW 14.5 11.0 - 15.0 % LAB HEMETOLOGY METHOD 11/11/2024 8:[address] [facility] Platelets 303 130 - 400 K/mcL LAB HEMETOLOGY METHOD 11/11/2024 8:[address] [facility] MPV 9.8 7.0 - 11.0 FL LAB HEMETOLOGY METHOD 11/11/2024 8:[address] [facility] NRBC 0.0 <1.0 % LAB HEMETOLOGY METHOD 11/11/2024 8:[address] [facility] NRBC Absolute 0.00 <0.10 K/mcL LAB HEMETOLOGY METHOD 11/11/2024 8:[address] [facility] Blood Venous blood specimen / Unknown Venipuncture / Unknown 11/11/2024 7:57 AM EDT 11/11/2024 8:35 AM EDT us Sara Tomlin MD LAB BLOOD ORDERABLES Fin al Result [facility] [address] [place] [address], documented in this encounter Visit Diagnoses Diagnosis Altered mental status, unspecified Essential (primary) hypertension Unspecified essential hypertension Urinary tract infection, site not specified documented in this encounter Care Teams Potline Monitor Relationship Specialty Start Date End Date Sara Tomlin MD [address] [place] [phone] PCP - General Family Medicine 08/26/24 documented as of this encounter
--- OUTSIDE RECORDS SUMMARY | 2025-03-02 12:16 | XMS_ITS | Encounter Summary ---
Author Organization [employer] Address [address] [place] [address] Care Team Providers Care Grounds Maintenance Manager Name Role Phone Sara Tomlin MD Primary Care Provider + Encounter Details Date Type Department Care Team (Late st Contact Info) Description 11/11/2024 Lab Requisition [facility] - Main Lab 299 [facility] [place] [address] Sara Tomlin MD 819 [facility] 1 [place], [place] [phone] Altered mental status, unspecified Social History Tobacco Use Types Packs/Day Years [...] Procedure Name Priority Date/Time Associated Diagnosis Comments URINALYSIS WITH REFLEX MICROSCOPIC AND CULTURE Routine 11/11/2024 7:30 AM EDT Altered mental status, unspecified WATSON URINE CULTURE TUBE Routine 11/11/2024 7:30 AM EDT Altered mental status, unspecified URINALYSIS WITH REFLEX MICROSCOPIC AND CULTURE Routine 11/11/2024 7:30 AM EDT Altered mental status, unspecified CULTURE URINE Routine 11/11/2024 7:30 AM EDT Altered mental status, unspecified documented in this encounter Results * Culture urine (11/11/2024 7:30 AM EDT) Culture, Urine 10,000-49,000 CFU/mL Mixed urogenital mela, no uropathogens present. Suggest repeat specimen if clinically indicated. 11/13/2024 8:20 AM [facility] Urine Urinary bladder structure / Unknown Non-blood Collection / Unknown 11/11/2024 7:30 AM EDT 11/11/2024 9:15 AM EDT us Sara Tomlin MD LAB MICROBIOLOGY - GENER AL ORDERABLES Final Result [facility] [address] [place] [address], [place] [phone] * (ABNORMAL) Urinalysis with reflex microscopic and culture (11/11/2024 7:30 AM EDT) Specific [place] Urine 1.015 1.003 - 1.030 LAB URINALYSIS - AUTOMATED METHOD 11/11/2024 9:15 AM [facility] pH, Urine 6.5 5.0 - 8.0 pH LAB URINALYSIS - AUTOMATED METHOD 11/11/2024 9:15 AM [facility] Leukocytes, Urine Trace(A) Negative LAB URINALYSIS - AUTOMATED METHOD 11/11/2024 9:15 AM [facility] Nitrite, Urine Negative Negative LAB URINALYSIS - AUTOMATED METHOD 11/11/2024 9:15 AM [facility] Protein, Urine Negative <=Trace mg/dL LAB URINALYSIS - AUTOMATED METHOD 11/11/2024 9:15 AM [facility] Glucose, Urine Negative Negative mg/dL LAB URINALYSIS - AUTOMATED METHOD 11/11/2024 9:15 AM [facility] Ketones, Urine Negative Negative mg/dL LAB URINALYSIS - AUTOMATED METHOD 11/11/2024 9:15 AM [facility] Urobilinogen, Urine 1.0 0.2 - 1.0 mg/dL LAB URINALYSIS - AUTOMATED METHOD 11/11/2024 9:15 AM [facility] Bilirubin, Urine Negative Negative LAB URINALYSIS - AUTOMATED METHOD 11/11/2024 9:15 AM [facility] Blood, Urine Negative Negative LAB URINALYSIS - AUTOMATED METHOD 11/11/2024 9:15 AM [facility] RBC, Urine 1.3 0 - 4 /HPF LAB URINALYSIS - AUTOMATED METHOD 11/11/2024 9:15 AM [facility] WBC, Urine 0.5 0 - 4 /HPF LAB URINALYSIS - AUTOMATED METHOD 11/11/2024 9:15 AM [facility] Squamous Epithelial, Urine 6 0 - 60 /LPF LAB URINALYSIS - AUTOMATED METHOD 11/11/2024 9:15 AM [facility] Bacteria, Urine Negative Negative /HPF LAB URINALYSIS - AUTOMATED METHOD 11/11/2024 9:15 AM [facility] Hyaline Casts, Urine 0.4 0 - 3 /LPF LAB URINALYSIS - AUTOMATED METHOD 11/11/2024 9:15 AM [facility] Urine Urinary bladder structure / Unknown Non-blood Collection / Unknown 11/11/2024 7:30 AM EDT 11/11/2024 8:42 AM EDT us Sara Tomlin MD LAB URINE ORDERABLES Fin al Result [facility] [address] [place] [address], * Watson urine culture tube (11/11/2024 7:30 AM EDT) Extra Tube Hold for add-ons. 11/11/2024 10:01 AM EDT [facility] Comment:Auto resulted. Urine Urinary bladder structure / Unknown Non-blood Collection / Unknown 11/11/2024 7:30 AM EDT 11/11/2024 8:42 AM EDT us Sara Tomlin MD LAB URINE ORDERABLES Fin al Result [facility] ([facility]) [facility] [address] [place] [address], documented in this encounter Visit Diagnoses Diagnosis Altered mental status, unspecified documented in this encounter Care Teams Grounds Maintenance Manager Relationship Specialty Start Date End Date Sara Tomlin MD [address] [place] [id number] PCP - General Family Medicine 08/26/24 documented as of this encounter
--- OUTSIDE RECORDS SUMMARY | 2025-03-02 12:16 | XMS_ITS | Encounter Summary ---
Author Organization [facility] Address [address] [place] [address] Care Team Providers Care Professor Of Environmental Studies Name Role Phone Sara Tomlin MD Primary Care Provider + Encounter Details Date Type Department Care Team (Late st Contact Info) Description 02/15/2025 Lab Requisition [facility] - Main Lab [address] [place] [address] Sara Tomlin MD [address] [phone] Encounter for therapeutic drug level monitoring Social History Tobacco Use Types Packs/Day Years [...] Procedure Name Priority Date/Time Associated Diagnosis Comments VALPROIC ACID LEVEL, TOTAL Routine 02/16/2025 5:48 AM EDT Encounter for therapeutic drug level monitoring documented in this encounter Results * Valproic acid level, total (02/16/2025 5:48 AM EDT) Valproic Acid, Total 53 50 - 100 mcg/mL LAB CHEMISTRY METHOD 02/16/2025 9:33 AM EDT [facility] Blood Venous blood specimen / Unknown Venipuncture / Unknown 02/16/2025 5:48 AM EDT 02/16/2025 8:57 AM EDT Sara Tomlin MD LAB BLOOD ORDERABLES Fin al Result [facility] [address] [place] [address], documented in this encounter Visit Diagnoses Diagnosis Encounter for therapeutic drug level monitoring documented in this encounter Care Teams Professor Of Environmental Studies Relationship Specialty Start Date End Date Sara Tomlin MD [address] [address] PCP - General Family Medicine 08/26/24 documented as of this encounter
--- OUTSIDE RECORDS SUMMARY | 2025-03-02 12:16 | XMS_ITS | Encounter Summary ---
Author Organization [employer] Address [address] [place] [address] Care Team Providers Care Computer Peripheral Equipment Operator Name Role Phone Sara Tomlin MD Primary Care Provider + Encounter Details Date Type Department Care Team (Late st Contact Info) Description 10/20/2024 Lab Requisition [facility] - Main Lab 299 [facility] [place] [address] Sara Tomlin MD 819 [facility] 1 [place], [place] [phone] Essential (primary) hypertension; Vitamin D deficiency, unspecified; Hypothyroidism, unspecified Social History Tobacco Use Types Packs/Day [...] Procedure Name Priority Date/Time Associated Diagnosis Comments CBC WITH AUTO DIFFERENTIAL Routine 10/20/2024 5:54 AM EDT Essential (primary) hypertension Vitamin D deficiency, unspecified Hypothyroidism, unspecified CBC AND DIFFERENTIAL Routine 10/20/2024 5:54 AM EDT Essential (primary) hypertension Vitamin D deficiency, unspecified Hypothyroidism, unspecified THYROID STIMULATING HORMONE Routine 10/20/2024 5:54 AM EDT Essential (primary) hypertension Vitamin D deficiency, unspecified Hypothyroidism, unspecified VITAMIN B12 Routine 10/20/2024 5:54 AM EDT Essential (primary) hypertension Vitamin D deficiency, unspecified Hypothyroidism, unspecified COMPREHENSIVE METABOLIC PANEL Routine 10/20/2024 5:54 AM EDT Essential (primary) hypertension Vitamin D deficiency, unspecified Hypothyroidism, unspecified documented in this encounter Results * (ABNORMAL) CBC auto differential (10/20/2024 5:54 AM EDT) [facility] WBC 4.8 4.8 - 10.8 K/mcL LAB HEMETOLOGY METHOD 10/20/2024 8:46 AM [facility] RBC 3.50(L) 3.80 - 4.80 M/mcL LAB HEMETOLOGY METHOD 10/20/2024 8:46 AM [facility] Hemoglobin 9.7(L) 11.5 - 16.0 g/dL LAB HEMETOLOGY METHOD 10/20/2024 8:46 AM [facility] Hematocrit 30.9(L) 35.0 - 47.0 % LAB HEMETOLOGY METHOD 10/20/2024 8:46 AM [facility] MCV 87.3 79.0 - 98.0 FL LAB HEMETOLOGY METHOD 10/20/2024 8:46 AM [facility] MCH 27.4 27.0 - 32.0 pcg LAB HEMETOLOGY METHOD 10/20/2024 8:46 AM [facility] MCHC 31.4(L) 32.0 - 37.0 g/dL LAB HEMETOLOGY METHOD 10/20/2024 8:46 AM [facility] RDW 15.0 11.0 - 15.0 % LAB HEMETOLOGY METHOD 10/20/2024 8:46 AM [facility] Platelets 237 130 - 400 K/mcL LAB HEMETOLOGY METHOD 10/20/2024 8:46 AM [facility] MPV 9.9 7.0 - 11.0 FL LAB HEMETOLOGY METHOD 10/20/2024 8:[facility] NRBC 0.0 <1.0 % LAB HEMETOLOGY METHOD 10/20/2024 8:46 AM [facility] NRBC Absolute 0.00 <0.10 K/mcL LAB HEMETOLOGY METHOD 10/20/2024 8:46 AM [facility] Neutrophils Relative 39.1 % LAB HEMETOLOGY METHOD 10/20/2024 8:46 AM [facility] Lymphocytes Relative 44.9 % LAB HEMETOLOGY METHOD 10/20/2024 8:46 AM [facility] Monocytes Relative 7.5 % LAB HEMETOLOGY METHOD 10/20/2024 8:46 AM [facility] Eosinophils Relative 7.3 % LAB HEMETOLOGY METHOD 10/20/2024 8:46 AM [facility] Basophils Relative 1.0 % LAB HEMETOLOGY METHOD 10/20/2024 8:46 AM [facility] Immature Granulocytes Relative 0.2 % LAB HEMETOLOGY METHOD 10/20/2024 8:46 AM [facility] Neutrophils Absolute 1.88 1.50 - 7.00 K/mcL LAB HEMETOLOGY METHOD 10/20/2024 8:46 AM [facility] Lymphocytes Absolute 2.16 1.00 - 5.00 K/mcL LAB HEMETOLOGY METHOD 10/20/2024 8:46 AM [facility] Monocytes Absolute 0.36 0.20 - 1.00 K/mcL LAB HEMETOLOGY METHOD 10/20/2024 8:46 AM [facility] Eosinophils Absolute 0.35 0.00 - 0.50 K/mcL LAB HEMETOLOGY METHOD 10/20/2024 8:46 AM [facility] Basophils Absolute 0.05 0.00 - 0.20 K/mcL LAB HEMETOLOGY METHOD 10/20/2024 8:46 AM EDT [facility] Immature Granulocytes Absolute 0.01 0.00 - 0.03 K/mcL LAB HEMETOLOGY METHOD 10/20/2024 8:46 AM EDT [facility] Blood Venous blood specimen / Unknown Venipuncture / Unknown 10/20/2024 5:54 AM EDT 10/20/2024 8:32 AM EDT Sara Tomlin MD LAB BLOOD ORDERABLES Fin al Result Performing Organization Address City/[facility]/ZIP Co de Phone Number [facility] [address] [place] [address], [place] [phone] * Vitamin B12 (10/20/2024 5:54 AM EDT) Vitamin B-12 275 250 - 900 pcg/mL LAB CHEMISTRY METHOD 10/20/2024 10:01 AM EDT [facility] Blood Venous blood specimen / Unknown Venipuncture / Unknown 10/20/2024 5:54 AM EDT 10/20/2024 8:32 AM EDT Sara Tomlin MD LAB BLOOD ORDERABLES Fin al Result Performing Organization Address City/[facility]/ZIP Co de Phone Number [facility] [address] [place] [address], [place] [phone] * Thyroid stimulating hormone (10/20/2024 5:54 AM EDT) TSH 1.13 0.40 - 4.00 mcIU/mL LAB CHEMISTRY METHOD 10/20/2024 10:25 AM EDT [facility] Blood Venous blood specimen / Unknown Venipuncture / Unknown 10/20/2024 5:54 AM EDT 10/20/2024 8:32 AM EDT Sara Tomlin MD LAB BLOOD ORDERABLES Fin al Result [facility] [address] [place] [address], * (ABNORMAL) Comprehensive metabolic panel (10/20/2024 5:54 AM EDT) Sodium 142 133 - 145 mmol/L LAB CHEMISTRY METHOD 10/20/2024 10:26 AM [facility] Potassium 4.5 3.5 - 5.5 mmol/L LAB CHEMISTRY METHOD 10/20/2024 10:26 AM [facility] Chloride 109 96 - 110 mmol/L LAB CHEMISTRY METHOD 10/20/2024 10:26 AM [facility] CO2 30 21 - 32 mmol/L LAB CHEMISTRY METHOD 10/20/2024 10:26 AM [facility] Anion Gap 3 3 - 11 LAB CHEMISTRY METHOD 10/20/2024 10:26 AM [facility] Glucose 76 70 - 100 mg/dL LAB CHEMISTRY METHOD 10/20/2024 10:26 AM [facility] BUN 16 5 - 25 mg/dL LAB CHEMISTRY METHOD 10/20/2024 10:26 AM [facility] Creatinine 0.71 0.50 - 1.10 mg/dL LAB CHEMISTRY METHOD 10/20/2024 10:26 AM [facility] eGFR 84 >=60 mL/min/1. 73m2 LAB CHEMISTRY METHOD 10/20/2024 10:26 AM [facility] Comment:Calculation based on the Chronic Kidney Disease Epidemiology Collaboration (CKD-EPI) equation refit without adjustment for race. BUN/Creatinine Ratio 22.5 LAB CHEMISTRY METHOD 10/20/2024 10:26 AM [facility] Calcium 10.0 8.5 - 10.5 mg/dL LAB CHEMISTRY METHOD 10/20/2024 10:26 AM [facility] AST (SGOT) 12 10 - 42 unit/L LAB CHEMISTRY METHOD 10/20/2024 10:26 AM T [facility] ALT (SGPT) 9(L) 10 - 60 unit/L LAB CHEMISTRY METHOD 10/20/2024 10:26 AM EDT [facility] Alkaline Phosphatase 52 42 - 121 unit/L LAB CHEMISTRY METHOD 10/20/2024 10:26 AM EDT [facility] Total Protein 6.0 6.0 - 8.0 g/dL LAB CHEMISTRY METHOD 10/20/2024 10:26 AM EDT [facility] Albumin 3.2 3.2 - 5.0 g/dL LAB CHEMISTRY METHOD 10/20/2024 10:26 AM T [facility] Total Bilirubin 0.5 0.0 - 1.4 mg/dL LAB CHEMISTRY METHOD 10/20/2024 10:26 AM T [facility] Blood Venous blood specimen / Unknown Venipuncture / Unknown 10/20/2024 5:54 AM EDT 10/20/2024 8:32 AM EDT Sara Tomlin MD LAB BLOOD ORDERABLES Fin al Result [facility] [address] [place] [address], documented in this encounter Visit Diagnoses Diagnosis Essential (primary) hypertension Unspecified essential hypertension Vitamin D deficiency, unspecified Hypothyroidism, unspecified documented in this encounter Care Teams Computer Peripheral Equipment Operator Relationship Specialty Start Date End Date Sara Tomlin MD [address] [place] [phone] PCP - General Family Medicine 08/26/24 documented as of this encounter
--- OUTSIDE RECORDS SUMMARY | 2025-03-02 12:16 | XMS_ITS | Encounter Summary ---
Author Organization [employer] Address [address] [place] [address] Care Team Providers Care Manager Analytical Name Role Phone Sara Tomlin MD Primary Care Provider + Encounter Details Date Type Department Care Team (Late st Contact Info) Description 01/26/2025 Lab Requisition [facility] - Main Lab [address] [place] [address] Sara Tomlin MD [address] [phone] Other fpc (current) drug therapy Social History Tobacco Use Types Packs/Day Years [...] Diagnosis Comments VALPROIC ACID LEVEL, TOTAL Routine 01/26/2025 6:01 AM EDT Other fpc (current) drug therapy documented in this encounter Results * (ABNORMAL) Valproic acid level, total (01/26/2025 6:01 AM EDT) Valproic Acid, Total 30(L) 50 - 100 mcg/mL LAB CHEMISTRY METHOD 01/26/2025 8:11 AM EDT [email or web address] Blood Venous blood specimen / Unknown Venipuncture / Unknown 01/26/2025 6:01 AM EDT 01/26/2025 7:09 AM EDT us Sara Tomlin MD LAB BLOOD ORDERABLES Fin al Result [facility] ([facility] [[email or web address] LAB [address] [place] [address], documented in this encounter Visit Diagnoses Diagnosis Other laborer marine terminal (current) drug therapy documented in this encounter Care Teams Manager Analytical Relationship Specialty Start Date End Date Saar Tomlin MD [address] [place] [id number] PCP - General Family Medicine 08/26/24 documented as of this encounter
--- OUTSIDE RECORDS SUMMARY | 2025-03-02 12:16 | XMS_ITS | Encounter Summary ---
Author Organization [employer] Address [address] [place] [address] Care Team Providers Care Manager Financial Systems Name Role Phone Sara Tomlin MD Primary Care Provider + Encounter Details Date Type Department Care Team (Late st Contact Info) Description 10/15/2024 Lab Requisition [facility] - Main Lab [address] [facility] [place] [address] Sara Tomlin MD [address] [facility] 1 [place], [place] [id number] Hypothyroidism, unspecified; Unspecified dementia, unspecified severity, without behavioral disturbance, psychotic disturbance, mood disturbance, and anxiety (CMS/HCC V24, CMS/HCC V28) Social History Tobacco Use Types Packs/Day Years [...] Associated Diagnosis Comments COMPLETE BLOOD COUNT Routine 10/15/2024 6:46 AM EDT Hypothyroidism, unspecified Unspecified dementia, unspecified severity, without behavioral disturbance, psychotic disturbance, mood disturbance, and anxiety (CMS/HCC V24, CMS/HCC V28) THYROID STIMULATING HORMONE Routine 10/15/2024 6:46 AM EDT Hypothyroidism, unspecified Unspecified dementia, unspecified severity, without behavioral disturbance, psychotic disturbance, mood disturbance, and anxiety (CMS/HCC V24, CMS/HCC V28) BASIC METABOLIC PANEL Routine 10/15/2024 6:46 AM EDT Hypothyroidism, unspecified Unspecified dementia, unspecified severity, without behavioral disturbance, psychotic disturbance, mood disturbance, and anxiety ([facility] V24, [facility] V28) documented in this encounter Results * Thyroid stimulating hormone (10/15/2024 6:46 AM EDT) Pathologist [facility] TSH 1.80 0.40 - 4.00 mcIU/mL LAB CHEMISTRY METHOD 10/15/2024 3:59 PM EDT [facility] Blood Venous blood specimen / Unknown Venipuncture / Unknown 10/15/2024 6:46 AM EDT 10/15/2024 8:19 AM EDT us Sara Tomlin MD LAB BLOOD ORDERABLES Fin al Result [facility] [address] [place] [address], * (ABNORMAL) Basic metabolic panel (10/15/2024 6:46 AM EDT) [facility] Sodium 139 133 - 145 mmol/L LAB CHEMISTRY METHOD 10/15/2024 10:37 AM [facility] Potassium 4.7 3.5 - 5.5 mmol/L LAB CHEMISTRY METHOD 10/15/2024 10:37 AM [facility] Chloride 108 96 - 110 mmol/L LAB CHEMISTRY METHOD 10/15/2024 10:37 AM [facility] CO2 29 21 - 32 mmol/L LAB CHEMISTRY METHOD 10/15/2024 10:37 AM [facility] Anion Gap 2(L) 3 - 11 LAB CHEMISTRY METHOD 10/15/2024 10:37 AM [facility] Glucose 82 70 - 100 mg/dL LAB CHEMISTRY METHOD 10/15/2024 10:37 AM [facility] BUN 16 5 - 25 mg/dL LAB CHEMISTRY METHOD 10/15/2024 10:37 AM EDT [facility] Creatinine 0.74 0.50 - 1.10 mg/dL LAB CHEMISTRY METHOD 10/15/2024 10:37 AM T [facility] eGFR 80 >=60 mL/min/1. 73m2 LAB CHEMISTRY METHOD 10/15/2024 10:37 AM [facility] Comment:Calculation based on the Chronic Kidney Disease Epidemiology Collaboration (CKD-EPI) equation refit without adjustment for race. BUN/Creatinine Ratio 21.6 LAB CHEMISTRY METHOD 10/15/2024 10:37 AM [facility] Calcium 9.9 8.5 - 10.5 mg/dL LAB CHEMISTRY METHOD 10/15/2024 10:37 AM [facility] Blood Venous blood specimen / Unknown Venipuncture / Unknown 10/15/2024 6:46 AM EDT 10/15/2024 8:19 AM EDT us Sara Tomlin MD LAB BLOOD ORDERABLES Fin al Result [facility] [address] [place] [address], * (ABNORMAL) Complete blood count (10/15/2024 6:46 AM EDT) WBC 5.8 4.8 - 10.8 K/mcL LAB HEMETOLOGY METHOD 10/15/2024 8:55 AM T [facility] RBC 3.30(L) 3.80 - 4.80 M/mcL LAB HEMETOLOGY METHOD 10/15/2024 8:55 AM [facility] Hemoglobin 9.3(L) 11.5 - 16.0 g/dL LAB HEMETOLOGY METHOD 10/15/2024 8:55 AM [facility] Hematocrit 28.6(L) 35.0 - 47.0 % LAB HEMETOLOGY METHOD 10/15/2024 8:55 AM EDT [facility] MCV 85.6 79.0 - 98.0 FL LAB HEMETOLOGY METHOD 10/15/2024 8:55 AM EDT [facility] MCH 27.8 27.0 - 32.0 pcg LAB HEMETOLOGY METHOD 10/15/2024 8:55 AM EDT [facility] MCHC 32.5 32.0 - 37.0 g/dL LAB HEMETOLOGY METHOD 10/15/2024 8:55 AM EDT [facility] RDW 14.9 11.0 - 15.0 % LAB HEMETOLOGY METHOD 10/15/2024 8:55 AM EDT [facility] Platelets 262 130 - 400 K/mcL LAB HEMETOLOGY METHOD 10/15/2024 8:55 AM EDT [facility] MPV 10.0 7.0 - 11.0 FL LAB HEMETOLOGY METHOD 10/15/2024 8:55 AM EDT [facility] NRBC 0.0 <1.0 % LAB HEMETOLOGY METHOD 10/15/2024 8:55 AM EDT [facility] NRBC Absolute 0.00 <0.10 K/mcL LAB HEMETOLOGY METHOD 10/15/2024 8:55 AM T [facility] Blood Venous blood specimen / Unknown Venipuncture / Unknown 10/15/2024 6:46 AM EDT 10/15/2024 8:19 AM EDT us Sara Tomlin MD LAB BLOOD ORDERABLES Fin al Result [facility] [address] [place] [address], documented in this encounter Visit Diagnoses Diagnosis Hypothyroidism, unspecified Unspecified dementia, unspecified severity, without behavioral disturbance, psychotic disturbance, mood disturbance, and anxiety (CMS/HCC V24, CMS/HCC V28) documented in this encounter Care Teams Manager Financial Systems Relationship Specialty Start Date End Date Sara Tomlin MD [address] [place] [address] PCP - General Family Medicine 08/26/24 documented as of this encounter
--- OUTSIDE RECORDS SUMMARY | 2025-03-02 12:16 | XMS_ITS | Clinical Summary ---
Author Organization [address] [facility] Address [address] [place] [address] Phone Care Team Providers Care Mechanic And Welder Name Role Phone Sara Tomlin MD Primary Care Provider + Encounters Date Type Department Care Team Description 02/15/2025 Lab Requisition [facility] [address] [place] [address] Sara Tomlin MD Encounter for therapeutic drug level monitoring 01/26/2025 Lab Requisition [facility] [address] [place] [address] Sara Tomlin MD Other exterminator (current) drug therapy from Last 3 Months Social History Tobacco Use Types Packs/Day Years Used Date Smoking Tobacco: Never Assessed Comments Unknown Sex and Gender Information Value Date Recorded Sex Assigned at Not on file Legal Sex Female 8:18 PM EST Gender Identity Not on file Sexual Orientation Not on file Plan of Treatment Health Maintenance Due Date Last Done Comments DTaP,Tdap,and Td Vaccines (1 - Tdap) 1959 Pneumococcal Vaccine: 50+ Years (1 of 1 - PCV) 1990 Zoster Vaccines (1 of 2) 1990 RSV Immunization Adult Patients (1 - 1-dose 75+ series) 2015 Cholesterol Screening (Lipid Panel) 08/01/2023 Falls Risk Assessment 08/01/2023 Medicare Annual Wellness Visit 08/01/2023 Osteoporosis Screening (Bone Density Screening) 08/01/2023 Social Influencers of Health Screening 08/01/2023 COVID-19 Vaccine (1 - 2023-2 5 season) 2024 Depression Screening 07/08/2024 Influenza Vaccine (#1) 2025 Hypertension/CHF/CAD Annual BMP Blood Test 11/11/2025 11/11/2024, 10/20/2024, 10/15/2024 HIB Vaccines Aged Out No longer eligi ble based on patient's age to complete this topic HPV Vaccines Aged Out No longer eligi ble based on patient's age to complete this topic Hepatitis A Vaccines Aged Out No long er eligible based on patient's age to complete this topic Hepatitis B Vaccines Aged Out No long er eligible based on patient's age to complete this topic IPV Vaccines Aged Out No longer eligi ble based on patient's age to complete this topic MMR Vaccines Aged Out No longer eligi ble based on patient's age to complete this topic Meningococcal ACWY Vaccine Aged Out N o longer eligible based on patient's age to complete this topic Meningococcal B Vaccine Aged Out No l onger eligible based on patient's age to complete this topic RSV Immunization Patients Under 20 months Aged Out No longer eligible b ased on patient's age to complete this topic Varicella Vaccines Aged Out No longer eligible based on patient's age to complete this topic Procedures Procedure Name Priority Date/Time Associated Diagnosis Comments VALPROIC ACID LEVEL, TOTAL Routine 02/16/2025 5:48 AM EDT Encounter for therapeutic drug level monitoring VALPROIC ACID LEVEL, TOTAL Routine 01/26/2025 6:01 AM EDT Other retirement (current) drug therapy BASIC METABOLIC PANEL Routine 11/11/2024 7:57 AM EDT Altered mental status, unspecified Essential (primary) hypertension Urinary tract infection, site not specified from Last 3 Months or Most Recently Relevant to Health Maintenance Results * Valproic acid level, total (02/16/2025 5:48 AM EDT) Only the most recent of2 resultswithin the time period is included. Valproic Acid, Total 53 50 - 100 mcg/mL LAB CHEMISTRY METHOD 02/16/2025 9:33 AM EDT [facility] Blood Venous blood specimen / Unknown Venipuncture / Unknown 02/16/2025 5:48 AM EDT 02/16/2025 8:57 AM EDT us Sara Tomlin MD LAB BLOOD ORDERABLES Fin al Result [facility] [address] [place] [address], * (ABNORMAL) Basic metabolic panel (11/11/2024 7:57 AM EDT) Sodium 139 133 - 145 mmol/L LAB CHEMISTRY METHOD 11/11/2024 9:20 AM [facility] Potassium 4.0 3.5 - 5.5 mmol/L LAB CHEMISTRY METHOD 11/11/2024 9:20 AM [facility] Chloride 106 96 - 110 mmol/L LAB CHEMISTRY METHOD 11/11/2024 9:20 AM [facility] CO2 29 21 - 32 mmol/L LAB CHEMISTRY METHOD 11/11/2024 9:20 AM [facility] Anion Gap 4 3 - 11 LAB CHEMISTRY METHOD 11/11/2024 9:20 AM [facility] Glucose 116(H) 70 - 100 mg/dL LAB CHEMISTRY METHOD 11/11/2024 9:20 AM [facility] BUN 19 5 - 25 mg/dL LAB CHEMISTRY METHOD 11/11/2024 9:20 AM [facility] Creatinine 0.88 0.50 - 1.10 mg/dL LAB CHEMISTRY METHOD 11/11/2024 9:20 AM [facility] eGFR 65 >=60 mL/min/1. 73m2 LAB CHEMISTRY METHOD 11/11/2024 9:20 AM [facility] Comment:Calculation based on the Chronic Kidney Disease Epidemiology Collaboration (CKD-EPI) equation refit without adjustment for race. BUN/Creatinine Ratio 21.6 LAB CHEMISTRY METHOD 11/11/2024 9:20 AM [facility] Calcium 9.9 8.5 - 10.5 mg/dL LAB CHEMISTRY METHOD 11/11/2024 9:20 AM EDT [facility] Blood Venous blood specimen / Unknown Venipuncture / Unknown 11/11/2024 7:57 AM EDT 11/11/2024 8:35 AM EDT us Sara Tomlin MD LAB BLOOD ORDERABLES Fin al Result [facility] [address] [place] [address], [place] [phone] from Last 3 Months or Most Recently Relevant to Health Maintenance Insurance [employer] MEDICARE ADVANTAGE MEDICAID - [place] Care Teams Mechanic And Welder Relationship Specialty Start Date End Date Sara Tomlin MD [address] [address] PCP - General Family Medicine 08/26/24
--- NOTE | 2025-03-02 13:57 | ED.GENADULT ---
HPI - General Adult General Chief complaint: Altered Mental Status Stated complaint: AGITATION,UNUSUAL BEHAVIOR PER EMS Time Seen by Provider: 03/02/25 12:53 Source: patient and EMS Mode of arrival: EMS Limitations: physical limitation (patient is demented at baseline) History of Present Illness ED Provider: Pham Sanderson PA-C HPI narrative: Patient is an 84 year old assigned female at with a history of dementia, mixed alzheimer's and vascular dementia, and HTN presenting to the emergency department today with reported increased agitation by SNF staff. 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 SNF staff reported the patient seemed to be acting more agitated and less like herself despite being chronically demented. Patient is pleasantly confused on examination but does not appropriately answer ROS questions. Related Data Home Medications ?Medication ?Instructions ?Recorded ?Confirmed amlodipine 5 mg tablet 1 tab PO DAILY 05/30/22 05/30/22 citalopram 10 mg tablet 1 tab PO DAILY 05/30/22 05/30/22 memantine 10 mg tablet 1 tab PO QPM 05/30/22 05/30/22 Allergies Allergy/AdvReac Type Severity Reaction Status Date / Time penicillin G (PENICILLIN G) Allergy Unknown ITCHING Verified 03/02/25 10:22 penicillin V Allergy Unknown itching Verified 03/02/25 10:22 smoke Allergy Unknown sick to Uncoded 03/02/25 10:22 her stomach Review of Systems Review of Systems: Yes Other (patient has dementia) Constitutional: Constitutional: Reports as per HPI Eyes: Eyes: Reports as per HPI ENT: Reports as per HPI Cardiovascular: Cardiovascular: Reports as per HPI Respiratory: Respiratory: Reports as per HPI Gastrointestinal: Gastrointestinal: Reports as per HPI Genitourinary: Genitourinary: Reports as per HPI Musculoskeletal: Musculoskeletal: Reports as per HPI Integumentary/Breasts: Skin/Breast: Reports as per HPI Neurologic: Reports confusion (per her baseline) Psychiatric: Psychiatric: Reports confusion (per her baseline) Endocrine: Endocrine: Reports as per HPI Hematologic/Lymphatic: Hematologic/Lymphatic: Reports as per HPI Allergic/Immunologic: Allergic/Immunologic: Reports as per HPI [facility] Past Medical History Attestation statement: The following information was validated with the patient. Source: old records reviewed, nursing notes reviewed and other (SNF provided additional history) Medical History Anxiety Annual physical exam Dementia History of depression Near syncope Osteopenia Vitamin D deficiency GERD (gastroesophageal reflux disease) Hyperlipidemia HTN (hypertension) Family History Family History Mother Abusive behavior Social History Social History Housing: House Alcohol intake: former Patient Tobacco Use Status: Former Tobacco user Smoked in Last 30 Days: No e-Cigarette/Vaping Use: Never Used Use of substances other than those prescribed or required for medical reasons: No Advance Directives: Yes Advance Directives Information Provided: Yes Advance Directives on File: No Do you have a plan to hurt others: No Plan Current occupational status: retired Cognitive needs: No Hearing needs: No Vision needs: Yes Physical Exam ED Vital Signs: Vital Signs - 24 hr 03/02/25 10:17 Temperature 97.5 F Pulse Rate 61 Respiratory Rate 17 Blood Pressure 146/74 H Pulse Oximetry 99 Oxygen Delivery Method Room Air BMI result Body Mass Index 25.5 Const General: confusion (per her baseline) Nutritional Appearance: cachectic Orientation/consciousness: oriented to person, No oriented to place, No oriented to time and confusion (per her baseline) HENMT Head: Yes normal to inspection and Yes atraumatic Ears: hearing grossly normal bilaterally and external ears normal General nose exam: Normal external nose present, no nasal discharge noted and no epistaxis Face and sinus: Yes normal facial exam, No abrasion and No laceration Mouth: Normal oral and palatal mucosa present, no drooling and no muffled voice Eyes General: appearance normal, both eyes and all related structures Periorbital: periorbital findings normal Eyelids: Yes eyelids normal Conjunctivae: conjunctivae normal Pupils: Equal, round and reactive pupils present EOM: EOMs intact bilaterally Neck Neck: Yes normal visual inspection and Yes full ROM Resp Effort & Inspection: normal respiratory effort and able to speak in complete sentences Neuro General: oriented to person, No oriented to place, No oriented to time and confusion (per her baseline) Cranial nerves: Yes Equal, round and reactive pupils present Extrem General: Yes normal to inspection, Yes full ROM and Yes capillary refill normal Psych Appearance: grossly normal Mental Status: mental status grossly normal Affect: normal affect Attitude: cooperative Thought process: Normal thought process present Thought content: Normal thought content present Insight: Good insight present (Psych) Medical Decision Making Medical Decision Making [facility] Narrative: Patient is an 84 year old assigned female at with a history of dementia, mixed alzheimer's and vascular dementia, and HTN presenting to the emergency department today with reported increased agitation by SNF staff. Patient's physical exam is consistent with her baseline - confused / demented but pleasant with no aggression or violence while in the department. Patient's blood work was unremarkable. Patient's urine showed no acute process. I explained my physical exam findings as well as all test results to the patient. I answered all questions asked by the patient. Patient was unable to appropriately verbalize understanding of my explanations. Patient is at her baseline with no evidence of change in behavior or aggression as reported by the SNF staff. Patient is medically cleared to return to her SNF. Differential Diagnosis Differential Diagnoses: The differential diagnosis associated with the presentation includes Dementia Agitation Irritation Alzheimer's Admission/Observation Consideration of admission/observation: Escalation of care including admission/observation considered Patient would have been admitted to the hospital had her work up had any findings where hospital admission was appropriate and her clinical presentation warranted hospital admission. Lab Data [facility] Lab Attestation statement: I reviewed the patient's lab results. My interpretation of these results are in the [facility] Rationale portion of this note. 03/02/25 10:53 03/02/25 10:53 Labs: Lab Results 03/02/25 Range/Units 10:53 WBC 5.1 (4.8-10.8) X10*3/uL RBC 3.76 L (4.20-5.50) X10*6/uL Hgb 10.5 L (12.0-16.0) g/dl Hct 32.3 L (37.0-47.0) % MCV 85.9 (80.0-98.0) fL MCH 27.9 (27.0-33.0) pg MCHC 32.5 (31.0-35.0) g/dl RDW 13.6 (11.0-16.0) % Plt Count 196 (160-400) X10*3/uL MPV 9.8 (9.4-12.3) fL Immature Gran % (Auto) 0.2 (0.0-0.4) % Neut % (Auto) 58.1 (45-73) % Lymph % (Auto) 27.7 (20-40) % Blair % (Auto) 8.7 (2-11) % Eos % (Auto) 4.3 H (0-4) % Baso % (Auto) 1.0 (0-2) % Lymph # (Auto) 1.4 (1.2-4.9) X10*3/uL Blair # (Auto) 0.4 (0.1-1.2) X10*3/uL Eos # (Auto) 0.2 (0.0-0.4) X10*3/uL Baso # (Auto) 0.1 (0.0-0.2) X10*3/uL Abs Immat Gran (auto) 0.01 (0.00-0.03) X10*3/uL Absolute Neuts (auto) 2.9 (2.0-8.3) x10*3/uL Absolute Nucleated RBC 0.000 (0.0-0.012) X10*3/uL Nucleated RBC % (auto) 0.0 (0.0-0.2) /100WBC Sodium 134 L (135-145) mmol/L Potassium 4.7 (3.3-5.1) mmol/L Chloride 100 (96-108) mmol/L Carbon Dioxide 28 (22-29) mmol/L Anion Gap 11 L (12-20) BUN 18 H (9-16) mg/dL Creatinine 0.76 (0.5-1.4) mg/dL Estim Creat Clear Calc 46.2 Estimated GFR > 60 Random Glucose 84 (60-115) mg/dL Calcium 9.4 D (8.4-10.2) mg/dL Magnesium 1.9 (1.6-2.6) mg/dL Total Bilirubin 0.4 (0.0-1.0) mg/dL AST 19 (5-31) U/L ALT 9 (0-31) U/L Alkaline Phosphatase 67 (39-117) U/L Total Protein 6.5 (6.5-8.0) g/dL Albumin 3.9 (3.5-5.0) g/dL Urine Color Yellow Urine Appearance Clear Urine pH 7.5 (5.0-9.0) Ur Specific [place] 1.015 (1.005-1.025) Urine Protein Negative (Neg-Trace) mg/dL Urine Glucose (UA) Negative (Negative) mg/dL Urine Ketones Negative (Negative) mg/dL Urine Blood Negative (Negative) Urine Nitrite Negative (Negative) Ur Leukocyte Esterase Trace H (Negative) Urine RBC 0-2 (0-2) /HPF Urine WBC 0-5 (0-5) /HPF Ur Squamous Epith Cells 0-2 (0-2) /HPF Other Crystals Present Urine Bacteria None Seen (None Seen) Hyaline Casts 0-2 (0-2) /LPF Independent Historian Clinical information obtained from an independent historian. History obtained from or confirmed by: EMS (EMS provided additional history) and Other (SNF provided additional history) Discharge Plan Discharge Clinical Impression: Dementia Patient Disposition: Home, Self-Care Instructions: Dementia (ED) Additional Instructions: Your medical work up was unremarkable. I believe your behavior changes toward your [facility] facility staff is secondary to your baseline neurocognitive decline. IF you are prescribed home medications and/or you are taking over the counter medications at home - it is very important you continue to do so as prescribed / directed unless told otherwise. Follow up with your primary care provider. Return to the emergency department immediately if your symptoms worsen or if you develop any numbness, tingling, dizziness, shortness of breath, difficulty breathing, chest pain, blurry vision, loss of vision, nausea, vomiting, abdominal pain, fever, chills, back pain, or any other complaints. Please see the information below about our Patient Portal. If you are not yet enrolled in the [facility] Patient Portal, you will receive an enrollment email invitation following your visit to any [facility] care setting. You may also self-enroll in the Patient Portal by visiting our website: [email or web address] The following information is required to access the Patient Portal: - Your [facility] Medical Record Number - Your personal home email address (must match what is in your electronic medical record, Registration staff can assist with this) - Name - Date of Capabilities of the Patient Portal: - Message some providers - View upcoming appointments - Access your health summary, medical history, and visit history - View current conditions and allergies - View procedure and lab results - View your medications, including guidelines, side effects, and precautions - Complete pre-appointment questionnaires requested by your provider - Ready summary reports of your office visits and procedures To access the Patient Portal Mobile Mono, follow these directions: - Search [facility] in the Mono Store or Google Play Store - Download the Mono - Search for [facility] - Enter your login/password Prescriptions: No Action citalopram 10 mg tablet 1 tab PO DAILY amlodipine 5 mg tablet 1 tab PO DAILY memantine 10 mg tablet 1 tab PO QPM Referrals: Sara Tomlin MD [Primary Care Provider, Internal Medicine] Print Language: Lao
--- NOTE | 2025-03-02 14:54 | PC.NURSE ---
Patient calm and cooperative, oob to bathroom to urinate. Denies pain or discomfort
--- NOTE | 2025-03-02 15:07 | PC.NURSE ---
Report given to Zuleyma DUMONT at [facility] , aware patient will be returning today
[2025-03-02 15:11] VITALS: BP 164/61; PULSE 58; RESP 18; TEMP 37.1; O2SAT 97
--- NOTE | 2025-03-02 16:33 | MHC.CM.ED ---
Pt is medically cleared and will return to her detention facility. Report called by primary RN and they accepted patient back. Pt has no CM needs at this time.
[2025-03-02 16:41] VITALS: BP 164/61; PULSE 58; RESP 18; TEMP 37.1; O2SAT 97
[2025-03-02 18:00] VITALS: BP 183/69; RESP 18; TEMP 36.6; O2SAT 99
== END 2025-03-02 18:48 | disposition skilled nursing facility (03) ==
PROVIDERS: Emergency Provider Emergency Medicine Emergency Medical Services; PCP Internal Medicine
DX: G30.9 Alzheimer's disease, unspecified (principal); F02.811 Dementia in other diseases classified elsewhere, unspecified severity, with agitation; F01.50 Vascular dementia, unspecified severity, without behavioral disturbance, psychotic disturbance, mood disturbance, and anxiety; I10 Essential (primary) hypertension; R64 Cachexia; Z79.899 Other long term (current) drug therapy
CPT/HCPCS: 36415; 80053; 81001; 83735; 85025; 99284